=== PATIENT | male | born 1935 | race Caucasian/White ===

== ENCOUNTER → 2017-10-29 11:31 | Outpatient (CLI) | payer MEDICARE, OTHER, SELFPAY ==
[2017-10-29 14:12] LABS: Hematocrit 41.8 % (40-54); Mean Corp Hgb Conc 33.5 g/gl (32-36); Mean Corpuscular Hgb 29.4 pg (27.0-32.0); Mean Corpuscular Volume 87.8 fL (80-94); Mean Platelet Vol. 9.7 fl (6.2-12.0); Platelet Count 278 K/mm3 (150-450); RBC Distribution Width CV 14.9 % (11.6-14.6); RBC Distribution Width SD 47.6 fl (35.1-43.9); Red Blood Count 4.76 M/mm3 (4.6-6.2)
[2017-10-29 14:16] LABS: Scan Indicated on CBC? Y/N NO
[2017-10-29 14:48] LABS: AST(SGOT) 20 U/L (15-37); Alanine Aminotransfer ALT/SGPT 22 U/L (16-61); Albumin, Serum 3.7 g/dL (3.2-5.0); Alkaline Phosphatase 54 U/L (45-117); Anion Gap 9 (5-15); BUN 25 mg/dL (7-18); BUN/Creat Ratio 16.1 RATIO (10-20); Calcium,Total 9.2 mg/dL (8.5-10.1); Chloride 102 mmol/L (98-107); Cholesterol 158 mg/dL (200); Creatinine, Serum 1.55 mg/dL (0.70-1.30); EST Glomerular Filtration Rate 46 mL/min (>60); Est Glom Filt Rate - Afr Amer 55 mL/min (>60); Globulin 3.6 g/dL (2.2-4.2); Glucose 100 mg/dL (74-106); High Density Lipoprotein 52 mg/dL; Potassium 4.6 mmol/L (3.5-5.1); Protein, Total 7.3 g/dL (6.4-8.2); Sodium Level 136 mmol/L (136-145); Triglycerides 163 mg/dL; Very Low Density Lipoprotein 33 mg/dL (5-40)
[2017-10-30 10:28] LABS: Vitamin B12 1640 pg/mL (211-911)
== END ==
PROVIDERS: Family Provider Family Medicine; PCP Family Medicine; Visit Provider Family Medicine
DX: I10 Essential (primary) hypertension (principal); E53.8 Deficiency of other specified B group vitamins
CPT/HCPCS: 36415; 80053; 80061; 82607; 85027

== ENCOUNTER 2017-11-23 11:17 | Inpatient (IN) | payer MEDICARE, OTHER, SELFPAY ==
[2017-11-23] VITALS (11 sets, daily range): BP systolic 107–139; BP diastolic 61–92; PULSE 79–104; RESP 17–39; TEMP 37.1–37.4; O2SAT 94–99; BMI 28.9; BMI 27.2; BMI 27.3
--- NOTE | 2017-11-23 11:55 | EKG12_ITS ---
Test Reason : Blood Pressure : / mmHG Vent. Rate : 094 BPM Atrial Rate : 094 BPM P-R Int : 136 ms QRS Dur : 098 ms QT Int : 356 ms P-R-T Axes : 055 007 063 degrees QTc Int : 445 ms Normal sinus rhythm Nonspecific ST abnormality Abnormal ECG Confirmed by LYNDON ADAM ([id number]), deputy editor in chief ALEKSANDAR MCKOY ([id number]) on 11/26/2017 2:33:51 PM Referred By: JUAQUIN Confirmed By:LYNDON ADAM
--- NOTE | 2017-11-23 11:55 | RAD_ITS ---
STUDY: X-RAY CHEST REASON FOR EXAM: Male, 82 years old. Cough shortness of breath and chest congestion. TECHNIQUE: AP and lateral views of the chest. COMPARISON: Comparison is made with prior study dated April 03, 2016. FINDINGS: EKG electrodes are seen. Elevation of the right hemidiaphragm. Mild increased linear markings at the right lung base suggestive of right basilar atelectasis. There is no demonstrated pleural abnormality. Sternal cerclage wires and vascular clips are present from a prior sternotomy and coronary artery bypass graft procedure (CABG). Normal mediastinum and hernesto. Normal visualized pulmonary arteries. There is atherosclerotic calcification of the aortic arch with tortuosity. There are diffuse degenerative changes of the visualized thoracic spine. Normal visualized ribs, clavicles, and shoulders. There is no demonstrated abnormality of the visualized soft tissue structures of the upper abdomen. RAD/Chest PA and Lateral IMPRESSION: Elevation of the right hemidiaphragm with increased linear markings at the right lung base suggestive of possible atelectasis. Electronically Signed: Elder Persaud MD at 13:01 EDT Tel [phone], Service support ,
[2017-11-23 12:07] LABS: Absolute Lymphocyte Count 0.73 X10^3/ul (0.83-4.51); Absolute Neutrophil Count 10.2 X10^3/uL (2.0-7.7); Basophil# 0.01 X10^3/uL; Basophil% 0.1 % (0-1); Eosinophil# 0.01 X10^3/uL; Eosinophils% 0.1 % (0-5); Hematocrit 40.1 % (40-54); Hemoglobin 13.4 g/dl (13.0-16.5); Lymphocyte # 0.73 X10^3/ul (4.0); Lymphocyte % 6.3 % (19-41); Mean Corp Hgb Conc 33.4 g/gl (32-36); Mean Corpuscular Hgb 29.5 pg (27.0-32.0); Mean Corpuscular Volume 88.3 fL (80-94); Mean Platelet Vol. 9.4 fl (6.2-12.0); Monocyte# 0.63 X10^3/uL; Monocyte% 5.4 % (0-10); Neutrophil # 10.24 X10^3/uL (2.7-7.7); Neutrophil % 87.8 % (47-70); Platelet Count 232 K/mm3 (150-450); RBC Distribution Width CV 15.1 % (11.6-14.6); RBC Distribution Width SD 49.3 fl (35.1-43.9); Red Blood Count 4.54 M/mm3 (4.6-6.2); White Blood Count 11.7 K/mm3 (4.4-11.0)
[2017-11-23 12:08] LABS: POSITIVE COUNT NO; POSITIVE DIFFERENTIAL NO; POSITIVE MORPHOLOGY NO
[2017-11-23 12:17] LABS: Anion Gap 9 (5-15); BUN 27 mg/dL (7-18); BUN/Creat Ratio 15.4 RATIO (10-20); Calcium,Total 9.1 mg/dL (8.5-10.1); Chloride 102 mmol/L (98-107); Creatinine, Serum 1.75 mg/dL (0.70-1.30); EST Glomerular Filtration Rate 40 mL/min (>60); Est Glom Filt Rate - Afr Amer 48 mL/min (>60); Estimated Creatinine Clearance 28.31 ml/min; Glucose 111 mg/dL (74-106); Potassium 4.2 mmol/L (3.5-5.1); Sodium Level 138 mmol/L (136-145)
[2017-11-23 12:29] LABS: Lactic Acid 2.8 mmol/L (0.4-2.0)
--- NOTE | 2017-11-23 12:29 | ED.RN ---
notified Dr. Hardin of lactic 2.8
--- NOTE | 2017-11-23 13:28 | ED.DCSUM_ITS ---
- ER Visit Summary Date of Service: 11/23/17 Chief Complaint: Cough History of Present Illness: The patient is a [address] Reynolds. Patient has a history of dementia and is a poor informant. reports he has a cough began 2 days ago. He has had a fever to 101.3?. He has had shortness of breath and generalized weakness. She reports that she was unable to even get him to stand today. No vomiting or diarrhea. Physical Examination: Vitals: Stable. Afebrile. General: Well-nourished and well-developed. Head: Normocephalic atraumatic. Neck: Supple, no lymphadenopathy. No JVD. Nontender. Cardiovascular: Regular rate and rhythm. No murmurs. Respiratory: No respiratory distress. Rhonchi on the right. Abdominal: Soft, nontender, nondistended, normal bowel sounds. No guarding, rebound, or peritoneal signs. Back: Nontender. Extremities: Nontender, 2+ pitting edema of his lower extremities bilaterally. Skin: Normal color, no rash. Neurologic: Alert and oriented ?1. Cranial nerves II through XII are intact. Normal strength and sensation. Psych: Normal affect. Test Results: EKG is sinus at [address] changes. Influenza is negative. Chem-7 is more for BUN 27, creatinine 1.75, glucose 111. Lactic acid is 2.8. CBC is marked for white count 11.7, 7 neutrophils 88, monocytes of 6. Chest x-ray is a very poor inspiration with an elevated right hemidiaphragm and atelectasis. Emergency Department Course and Treatment: Patient was given a liter bolus of normal saline. He is resting comfortably. Treatment Plan: The patient was discussed with Dr. Mai. He will be admitted to the hospital for further evaluation and treatment. Disposition: Admitted in serious condition. Impression: 1. Severe sepsis. 2. URI. 3. Lactic acidosis. 4. Generalized weakness. This note was generated with [employer] Voice[employer] software. It may contain incorrect words, spelling, and punctuation that were not noted in review of the chart prior to signing ED Disposition - Plan for ED Patient: Chief Complaint: Shortness of Breath Referrals: Randy Buchanan MD [Primary Care Provider] -
[2017-11-23] MEDS: 0.9% Normal Saline 1,000 ML 999 ML IV (13:50)
--- NOTE | 2017-11-23 13:59 | PCM.HP.STD ---
Problem List (1) Severe sepsis Status: Acute (2) DEWAYNE (acute kidney injury) Status: Acute (3) CKD (chronic kidney disease), stage III Status: Chronic (4) Dementia Status: Chronic Qualifiers: Dementia type: Alzheimer's disease Alzheimer's disease onset: unspecified onset (5) Hypertension Status: Chronic (6) GERD (gastroesophageal reflux disease) Status: Chronic Qualifiers: Esophagitis presence: esophagitis presence not specified Qualified Code(s): K21.9 - Gastro-esophageal reflux disease without esophagitis (7) CAD (coronary artery disease) Status: Chronic Qualifiers: Coronary Disease-Associated Artery/Lesion type: bypass graft [place] vs. transplanted heart: [place] heart Associated angina: without angina Qualified Code(s): I25.810 - Atherosclerosis of coronary artery bypass graft(s) without angina pectoris History of Present Illness Date of Admission: 11/23/17 Chief Complaint: weakness The patient is a 82 year old M who has been coughing since Thursday. Patient's daughter lives with him and has been sick herself since the preceding . She states that she has been checking his temperature which he has been afebrile over the weekend. Patient got up today and then try to get up from breakfast patient was just very weak. She felt the patient was burning up and had a temperature of greater than 101 Fahrenheit. Given that he was weak she decided to call EMS and brought the patient to the hospital. In the emergency room, patient had a chest x-ray showed no acute infiltrates. And the patient did have a lactic acid of 2.8. Patient is to receive IV fluids. Patient also be receiving a urinalysis and urine culture. Patient did have 2 blood cultures performed. Patient is demented and a poor historian so he is unable to provide any history. Patient's daughter states that he was coughing that was nonproductive over the weekend but no other obvious source of infection that she can determine. States that she was put on antibiotics for a presumed sinus infection from her illness from last week. [] Past Medical History Past Medical History (Chronic Problems): Chronic Problems CKD (chronic kidney disease), stage III (Chronic) Dementia (Chronic) Hypertension (Chronic) GERD (gastroesophageal reflux disease) (Chronic) CAD (coronary artery disease) (Chronic) Allergies No Known Allergies Allergy (Verified 04/03/16 14:19) Home Medications: Ambulatory Orders Medication Instructions Recorded Aspirin [Aspirin, Baby] 81 mg PO DAILY@0800 04/03/16 Citalopram [Celexa] 20 mg PO DAILY 04/03/16 Donepezil HCl [Aricept] 10 mg PO QHS 04/03/16 Ergocalciferol [Vitamin D] 50,000 unit PO GARIBAY 04/03/16 Hydrocodone/Acetaminophen 1 each PO QHS 04/03/16 [Hydrocodone-Acetamin 5-325 mg] Lorazepam [Ativan] 0.5 mg PO DAILY PRN PRN 04/03/16 Meloxicam [Mobic] 15 mg PO DAILY 04/03/16 Metoprolol Tartrate [Lopressor 25 mg PO DAILY 04/03/16 (beta ximena)] Omeprazole [Prilosec] 20 mg PO DAILY 04/03/16 Quetiapine Fumarate [Seroquel XR] 50 mg PO QHS 04/03/16 Simvastatin [Zocor] 40 mg PO QHS 04/03/16 Ensure Enlive 120 ml PO 4X/DAY #1 box 04/04/16 Surgical History: coronary bypass surgery - ?1, total hip arthroplasty - Bilateral Lives: With Family Smoking Status: Never smoker - *Family History Maternal History Items: - - Unable to obtain as patient is demented Review of Systems Constitutional: Reports: Fever, Weakness Respiratory: Reports: Cough Unable to obtain accurate/complete ROS d/t: Unable to obtain as the patient is confused VTE Information - Inpt Only VTE Present on Admission: No VTE Pharm Prophylaxis ordered?: Yes Patient Problems: Active and Suspected Problems Severe sepsis (Acute) DEWAYNE (acute kidney injury) (Acute) - Physical Exam General: Alert, Cooperative, No apparent distress HEENT: Atraumatic, Normocephalic Oral: Moist Mucosa, No Gingival or Mucosal Lesions/ Ulcerations, - - edentulous Neck: No Nodes, Thyroid Normal Size and Texture Lungs: Clear to auscultation, No rhonchi, No wheeze, Diminished Cardiovascular: Regular rate, Regular Rhythm, Normal S1, Normal S2, No murmurs Abdomen: Bowel Sounds Present, Soft, Non Tender, Non-Distended, No Hepato-splenomegaly Extremities: No edema, No Calf Tenderness Skin: No rashes, No breakdown Musculoskeletal: No Tenderness to Palpation of Joints or Extremities, No Muscle Wasting Neurological: Neuro grossly intact, - - no clonus Psych/Mental Status: - - confused Vital Signs Temp Pulse Resp BP Pulse Ox 37.4 C H 102 H 28 H 121/75 H 94 11/23/17 12:57 11/23/17 13:50 11/23/17 13:50 11/23/17 13:50 11/23/17 13:50 Oxygen Flow Rate (L/min) 5 Oxygen Delivery Method Nasal Cannula Weight: 78.925 kg Body Mass Index (BMI) 28.9 Microbiology Past 72 Hours 11/23/17 12:45 Influenza Types A,B Direct FA (GEETA) - Final Mucosa - Nose Laboratory Tests Past 24 Hrs 11/23/17 11/23/17 11/23/17 11:28 11:28 11:28 WBC 11.7 H RBC 4.54 L Hgb 13.4 Hct 40.1 MCV 88.3 MCH 29.5 MCHC 33.4 RDW 15.1 H RDW Differential 49.3 H Plt Count 232 MPV 9.4 Immature Gran % (Auto) 0.300 Neut % (Auto) 87.8 H Lymph % (Auto) 6.3 L [place] % (Auto) 5.4 Eos % (Auto) 0.1 Baso % (Auto) 0.1 Absolute Neuts (auto) 10.2 H Absolute Lymphs (auto) 0.73 L Total Counted Not Reportable Sodium 138 Potassium 4.2 Chloride 102 Carbon Dioxide 27.0 Anion Gap 9 BUN 27 H Creatinine 1.75 H Estim Creat Clear Calc 28.31 Est GFR (MDRD) Af Amer 48 L Est GFR (MDRD) Non-Af 40 L BUN/Creatinine Ratio 15.4 Glucose 111 H Lactic Acid 2.8 H Calcium 9.1 EKG reviewed and showed normal sinus rhythm with an incomplete right bundle branch block. No previous EKG was available to be compared to. X-ray personally reviewed and showed points to her efforts but no obvious infiltrate nor edema. Assessment/Plan Active and Suspected Problems Severe sepsis (Acute) DEWAYNE (acute kidney injury) (Acute) 1. Severe sepsis Patient meeting criteria based on respiratory rates as well as tachycardia. Additionally patient had a lactic acid of 2.8 I advised the emergency room physician to get the patient IV fluids even though there is no clear obvious source of infection at this time. Patient will have a urine studies as well to evaluate for the being potential etiology. My concern is that this may be more of a viral etiology. Patient's rapid flu is negative. Respiratory viral panel is currently pending. Hold off on any antibiotics at this time unless clear source of infection has been delayed or if the patient's condition changes for the worse. 2. Presumed acute kidney injury Creatinine is 1.75 from his baseline of 1.4. IV fluids Hold potentiating medications such as meloxicam. 3. Dementia, Alzheimer type Complicating care Continue with his Aricept as well as Seroquel 4. DVT prophylaxis with low migrate heparin Advanced care planning, spent an additional 15 minutes outside of the history and physical discussing advanced care planning with the patient's daughter, who is the patient's power of associate attorney. Discussed CPR, intubation and PEG tube and tube feeds. She states, at this time, patient is DNR Comfort Care arrest, no intubation and no PEG tubes. Code Visit Inpatient E&M: 10690 Init Hosp L3 Procedures: 09010 Advncd Care Plan 30 Min
--- NOTE | 2017-11-23 14:11 | HP.PCM_ITS ---
Problem List (1) Severe sepsis Status: Acute (2) DEWAYNE (acute kidney injury) Status: Acute (3) CKD (chronic kidney disease), stage III Status: Chronic (4) Dementia Status: Chronic Qualifiers: Dementia type: Alzheimer's disease Alzheimer's disease onset: unspecified onset (5) Hypertension Status: Chronic (6) GERD (gastroesophageal reflux disease) Status: Chronic Qualifiers: Esophagitis presence: esophagitis presence not specified Qualified Code(s) : K21.9 - Gastro-esophageal reflux disease without esophagitis (7) CAD (coronary artery disease) Status: Chronic Qualifiers: Coronary Disease-Associated Artery/Lesion type: bypass graft [place] vs. transplanted heart: [place] heart Associated angina: without angina Qualified Code(s): I25.810 - Atherosclerosis of coronary artery bypass graft(s) without angina pectoris History of Present Illness Date of Admission: 11/23/17 Chief Complaint: weakness The patient is a 82 year old M who has been coughing since Thursday. Patient's daughter lives with him and has been sick herself since the preceding . She states that she has been checking his temperature which he has been afebrile over the weekend. Patient got up today and then try to get up from breakfast patient was just very weak. She felt the patient was burning up and had a temperature of greater than 101 Fahrenheit. Given that he was weak she decided to call EMS and brought the patient to the hospital. In the emergency room, patient had a chest x-ray showed no acute infiltrates. And the patient did have a lactic acid of 2.8. Patient is to receive IV fluids. Patient also be receiving a urinalysis and urine culture. Patient did have 2 blood cultures performed. Patient is demented and a poor historian so he is unable to provide any history. Patient's daughter states that he was coughing that was nonproductive over the weekend but no other obvious source of infection that she can determine. States that she was put on antibiotics for a presumed sinus infection from her illness from last week. [] Past Medical History Past Medical History (Chronic Problems): Chronic Problems CKD (chronic kidney disease), stage III (Chronic) Dementia (Chronic) Hypertension (Chronic) GERD (gastroesophageal reflux disease) (Chronic) CAD (coronary artery disease) (Chronic) Allergies No Known Allergies Allergy (Verified 04/03/16 14:19) Home Medications: Ambulatory Orders Medication Instructions Recorded Aspirin [Aspirin, Baby] 81 mg PO DAILY@0800 04/03/16 Citalopram [Celexa] 20 mg PO DAILY 04/03/16 Donepezil HCl [Aricept] 10 mg PO QHS 04/03/16 Ergocalciferol [Vitamin D] 50,000 unit PO GARIBAY 04/03/16 Hydrocodone/Acetaminophen 1 each PO QHS 04/03/16 [Hydrocodone-Acetamin 5-325 mg] Lorazepam [Ativan] 0.5 mg PO DAILY PRN PRN 04/03/16 Meloxicam [Mobic] 15 mg PO DAILY 04/03/16 Metoprolol Tartrate [Lopressor 25 mg PO DAILY 04/03/16 (beta ximena)] Omeprazole [Prilosec] 20 mg PO DAILY 04/03/16 Quetiapine Fumarate [Seroquel XR] 50 mg PO QHS 04/03/16 Simvastatin [Zocor] 40 mg PO QHS 04/03/16 Ensure Enlive 120 ml PO 4X/DAY #1 box 04/04/16 Surgical History: coronary bypass surgery - ?1, total hip arthroplasty - Bilateral Lives: With Family Smoking Status: Never smoker - *Family History Maternal History Items: - - Unable to obtain as patient is demented Review of Systems Constitutional: Reports: Fever, Weakness Respiratory: Reports: Cough Unable to obtain accurate/complete ROS d/t: Unable to obtain as the patient is confused VTE Information - Inpt Only VTE Present on Admission: No VTE Pharm Prophylaxis ordered?: Yes Patient Problems: Active and Suspected Problems Severe sepsis (Acute) DEWAYNE (acute kidney injury) (Acute) - Physical Exam General: Alert, Cooperative, No apparent distress HEENT: Atraumatic, Normocephalic Oral: Moist Mucosa, No Gingival or Mucosal Lesions/ Ulcerations, - - edentulous Neck: No Nodes, Thyroid Normal Size and Texture Lungs: Clear to auscultation, No rhonchi, No wheeze, Diminished Cardiovascular: Regular rate, Regular Rhythm, Normal S1, Normal S2, No murmurs Abdomen: Bowel Sounds Present, Soft, Non Tender, Non-Distended, No Hepato- splenomegaly Extremities: No edema, No Calf Tenderness Skin: No rashes, No breakdown Musculoskeletal: No Tenderness to Palpation of Joints or Extremities, No Muscle Wasting Neurological: Neuro grossly intact, - - no clonus Psych/Mental Status: - - confused Vital Signs Temp Pulse Resp BP Pulse Ox 37.4 C H 102 H 28 H 121/75 H 94 11/23/17 12:57 11/23/17 13:50 11/23/17 13:50 11/23/17 13:50 11/23/17 13:50 Oxygen Flow Rate (L/min) 5 Oxygen Delivery Method Nasal Cannula Weight: 78.925 kg Body Mass Index (BMI) 28.9 Microbiology Past 72 Hours 11/23/17 12:45 Influenza Types A,B Direct FA (GEETA) - Final Mucosa - Nose Laboratory Tests Past 24 Hrs 11/23/17 11/23/17 11/23/17 11:28 11:28 11:28 WBC 11.7 H RBC 4.54 L Hgb 13.4 Hct 40.1 MCV 88.3 MCH 29.5 MCHC 33.4 RDW 15.1 H RDW Differential 49.3 H Plt Count 232 MPV 9.4 Immature Gran % (Auto) 0.300 Neut % (Auto) 87.8 H Lymph % (Auto) 6.3 L [place] % (Auto) 5.4 Eos % (Auto) 0.1 Baso % (Auto) 0.1 Absolute Neuts (auto) 10.2 H Absolute Lymphs (auto) 0.73 L Total Counted Not Reportable Sodium 138 Potassium 4.2 Chloride 102 Carbon Dioxide 27.0 Anion Gap 9 BUN 27 H Creatinine 1.75 H Estim Creat Clear Calc 28.31 Est GFR (MDRD) Af Amer 48 L Est GFR (MDRD) Non-Af 40 L BUN/Creatinine Ratio 15.4 Glucose 111 H Lactic Acid 2.8 H Calcium 9.1 EKG reviewed and showed normal sinus rhythm with an incomplete right bundle branch block. No previous EKG was available to be compared to. X-ray personally reviewed and showed points to her efforts but no obvious infiltrate nor edema. Assessment/Plan Active and Suspected Problems Severe sepsis (Acute) DEWAYNE (acute kidney injury) (Acute) 1. Severe sepsis * Patient meeting criteria based on respiratory rates as well as tachycardia. Additionally patient had a lactic acid of 2.8 * I advised the emergency room physician to get the patient IV fluids even though there is no clear obvious source of infection at this time. Patient will have a urine studies as well to evaluate for the being potential etiology. My concern is that this may be more of a viral etiology. Patient's rapid flu is negative. Respiratory viral panel is currently pending. * Hold off on any antibiotics at this time unless clear source of infection has been delayed or if the patient's condition changes for the worse. 2. Presumed acute kidney injury * Creatinine is 1.75 from his baseline of 1.4. * IV fluids * Hold potentiating medications such as meloxicam. 3. Dementia, Alzheimer type * Complicating care * Continue with his Aricept as well as Seroquel 4. DVT prophylaxis with low migrate heparin Advanced care planning, spent an additional 15 minutes outside of the history and physical discussing advanced care planning with the patient's daughter, who is the patient's power of sports attorney. Discussed CPR, intubation and PEG tube and tube feeds. She states, at this time, patient is DNR Comfort Care arrest, no intubation and no PEG tubes. Code Visit Inpatient E&M: 34581 Init Hosp L3 Procedures: 95505 Advncd Care Plan 30 Min
[2017-11-23] MEDS: 0.9% Normal Saline 1,000 ML 150 ML IV (15:00)
[2017-11-23 16:02] LABS: Reflex Lactate? Y
[2017-11-23 17:26] LABS: Lactic Acid 1.1 mmol/L (0.4-2.0)
[2017-11-23] MEDS: QUEtiapine 25 MG Tablet PO (22:36)
[2017-11-23] MEDS: Donepezil HCl 10 MG Tablet PO (22:36)
[2017-11-23] MEDS: Atorvastatin Calcium 20 MG Tablet PO (22:36)
[2017-11-23] MEDS: HYDROcodone Bitartrate/Apap 5/325 Tablet PO (22:36)
[2017-11-24] VITALS (9 sets, daily range): BP systolic 118–157; BP diastolic 63–87; PULSE 63–88; RESP 18–20; TEMP 36.3–36.9; O2SAT 92–100
[2017-11-24 06:01] LABS: Absolute Lymphocyte Count 1.52 X10^3/ul (0.83-4.51); Absolute Neutrophil Count 9.7 X10^3/uL (2.0-7.7); Basophil# 0.01 X10^3/uL; Basophil% 0.1 % (0-1); Eosinophil# 0.01 X10^3/uL; Eosinophils% 0.1 % (0-5); Hematocrit 33.9 % (40-54); Hemoglobin 11.1 g/dl (13.0-16.5); Lymphocyte # 1.52 X10^3/ul (4.0); Lymphocyte % 12.2 % (19-41); Mean Corp Hgb Conc 32.7 g/gl (32-36); Mean Corpuscular Hgb 29.3 pg (27.0-32.0); Mean Corpuscular Volume 89.4 fL (80-94); Mean Platelet Vol. 9.4 fl (6.2-12.0); Monocyte# 1.23 X10^3/uL; Monocyte% 9.9 % (0-10); Neutrophil # 9.68 X10^3/uL (2.7-7.7); Neutrophil % 77.5 % (47-70); Platelet Count 184 K/mm3 (150-450); RBC Distribution Width CV 15.3 % (11.6-14.6); RBC Distribution Width SD 49.2 fl (35.1-43.9); Red Blood Count 3.79 M/mm3 (4.6-6.2); White Blood Count 12.5 K/mm3 (4.4-11.0)
[2017-11-24 06:05] LABS: POSITIVE COUNT NO; POSITIVE DIFFERENTIAL NO; POSITIVE MORPHOLOGY NO
[2017-11-24 06:19] LABS: Anion Gap 7 (5-15); BUN 30 mg/dL (7-18); BUN/Creat Ratio 23.1 RATIO (10-20); Calcium,Total 8.4 mg/dL (8.5-10.1); Chloride 109 mmol/L (98-107); EST Glomerular Filtration Rate 56 mL/min (>60); Est Glom Filt Rate - Afr Amer 68 mL/min (>60); Estimated Creatinine Clearance 39.53 ml/min; Glucose 88 mg/dL (74-106); Potassium 3.8 mmol/L (3.5-5.1); Sodium Level 143 mmol/L (136-145)
[2017-11-24] MEDS: Enoxaparin 30 MG/0.3 ML Syringe SC (08:21)
[2017-11-24] MEDS: QUEtiapine 25 MG Tablet PO (08:21)
[2017-11-24] MEDS: Pantoprazole Sodium 20 MG Tablet PO (08:21)
[2017-11-24] MEDS: Aspirin 81 MG TAB.CHEW PO (08:21)
[2017-11-24] MEDS: Metoprolol Tartrate 25 MG Tablet PO (08:21)
--- NOTE | 2017-11-24 09:34 | CASEMGMT ---
Social Work Note Face to face with the pt and his daughter, Kenzie (HCPOA). Introduced self and role at [facility]. Per Kenzie the pt and she moved into a one level condo without a basement. The pt uses a rollator at baseline and other DME consists of shower chair, handheld shower and grab bars. According to Kenzie the pt is able to get himself out of bed, dress himself and feed himself. His aides assist him with bathing. Kenzie states that she works from 2-10 everyday as a nurse at [employer]. The pt had aides come in through [facility] on M,W, and they privately pay for aide to come in on and . Aide services are provided through the [place], but Kenzie states that [facility] does not have the staffing to service them 5 days/week. Pt's has been in [facility] since 2014 and they would like to keep the pt at home as long as possible. At this time Kenzie anticipates taking the pt home and denies additional needs. Pt made aware that SW is available if additional needs arise. Placed call to GASPER Brown, and updated that pt was admitted. Confirmed that the pt is approved for 10 hrs/week of aide services through [facility]. Updated Kevin to anticipated discharge plan, and no additional needs at this time. SW to continue to follow and assist with discharge planning. Plan: Home with continued support from aides and family. [address], [employer] REPA[employer]ER, [employer]
--- NOTE | 2017-11-24 09:40 | PN_ITS ---
Patient Problems: Active and Suspected Problems Severe sepsis (Acute) DEWAYNE (acute kidney injury) (Acute) Subjective: Chief complaint: Follow-up after admission for severe sepsis secondary to influenza B/acute bronchitis as well as acute kidney injury. Patient seen and examined. No acute events overnight. He is poor informant because of dementia. He mentioned that his breathing is better not sure if he has been coughing or not. Denied chest pain or palpitations. He has been afebrile, blood pressure not able stable, pulse ox is 98% on 2 L. - Physical Exam General: Alert, Cooperative, No apparent distress HEENT: Atraumatic, PERRLA, EOMI Oral: Moist Mucosa, No Gingival or Mucosal Lesions/ Ulcerations Neck: Supple, No JVD, Negative Carotid Bruits, Trachea Midline, Thyroid Normal Size and Texture Lungs: Clear to auscultation, No rhonchi, No rales, Diminished, - - Scattered wheezing, minimal shortness of breath. Cardiovascular: Regular rate, Regular Rhythm, Normal S1, Normal S2, PMI Normal Abdomen: Bowel Sounds Present, Soft, Non Tender, Non-Distended, No Hepato- splenomegaly Extremities: No clubbing, No cyanosis, No edema Skin: No rashes, No breakdown Lymphatic: No Cervical, Supraclavicular, or Inguinal Adenopathy Neurological: Cranial nerves II-XII grossly intact, Neuro grossly intact Psych/Mental Status: Normal Affect, Appropriate Vital Signs Temp Pulse Resp BP Pulse Ox 97.7 F L 77 18 118/63 98 11/24/17 04:50 11/24/17 08:21 11/24/17 04:50 11/24/17 04:50 11/24/17 04:50 Oxygen Flow Rate (L/min) 1 Oxygen Delivery Method Nasal Cannula Weight: 168 lb 13.985 oz Body Mass Index (BMI) 27.2 Intake and Output for Last 24 Hours 11/22/17 11/23/17 11/24/17 23:59 23:59 23:59 Intake Total 1241 / 1241 Balance 1241 / 1241 Laboratory Tests Past 24 Hrs 11/23/17 11/23/17 11/24/17 15:40 16:45 05:35 WBC 12.5 H RBC 3.79 L Hgb 11.1 L Hct 33.9 L MCV 89.4 MCH 29.3 MCHC 32.7 RDW 15.3 H RDW Differential 49.2 H Plt Count 184 MPV 9.4 Immature Gran % (Auto) 0.200 Neut % (Auto) 77.5 H Lymph % (Auto) 12.2 L [place] % (Auto) 9.9 Eos % (Auto) 0.1 Baso % (Auto) 0.1 Absolute Neuts (auto) 9.7 H Absolute Lymphs (auto) 1.52 Total Counted Not Reportable Sodium Potassium Chloride Carbon Dioxide Anion Gap BUN Creatinine Estim Creat Clear Calc Est GFR (MDRD) Af Amer Est GFR (MDRD) Non-Af BUN/Creatinine Ratio Glucose Lactic Acid Cancelled 1.1 Calcium 11/24/17 05:35 WBC RBC Hgb Hct MCV MCH MCHC RDW RDW Differential Plt Count MPV Immature Gran % (Auto) Neut % (Auto) Lymph % (Auto) [place] % (Auto) Eos % (Auto) Baso % (Auto) Absolute Neuts (auto) Absolute Lymphs (auto) Total Counted Sodium 143 Potassium 3.8 Chloride 109 H Carbon Dioxide 27.0 Anion Gap 7 BUN 30 H Creatinine 1.30 Estim Creat Clear Calc 39.53 Est GFR (MDRD) Af Amer 68 Est GFR (MDRD) Non-Af 56 L BUN/Creatinine Ratio 23.1 H Glucose 88 Lactic Acid Calcium 8.4 L Clinical Impression(s) from Imaging Studies Chest X-Ray 11/23/17 11:55 IMPRESSION: Elevation of the right hemidiaphragm with increased linear markings at the right lung base suggestive of possible atelectasis. Electronically Signed: Elder Persaud MD at 13:01 EDT Tel [phone], Service support , Medical Necessity - Tobacco Use Smoking Status: Never smoker Assessment/Plan Active and Suspected Problems Severe sepsis (Acute) DEWAYNE (acute kidney injury) (Acute) This is an 82 years old male patient presented to the emergency room because of dry cough and fever as well as mild shortness of breath and weakness and he was found to have severe sepsis secondary to acute viral bronchitis secondary to acute influenza B as well as acute kidney injury. #1 acute viral bronchitis/influenza B: He is on Tamiflu. He has been afebrile overnight, blood pressure and heart rate are stable, pulse ox is 98% on 2 L. Chest x-ray showed no acute infiltrate. Blood and urine cultures are pending. Plan to continue same treatment, repeat CBC tomorrow morning. #2 severe sepsis: Based on tachycardia, tachypnea and lactic acid 2.8. With IV fluid therapy, lactic acid came back to normal. It is probably secondary to acute viral infection. No indication for IV antibiotics. Chest x-ray showed no acute infiltrate. Blood and urine cultures are pending. #3 acute kidney injury on top of stage III chronic kidney disease: His baseline creatinine recently was around 1.4. Before that, it has been normal. Admission creatinine is 1.75. Patient received IV fluids, creatinine came down to 1.30, improved. #4 hypertension: Blood pressure stable, continue metoprolol. #5 CAD: Stable, no acute issues. Continue aspirin, statins and metoprolol. #6 dementia: With behavioral disturbances. Continue Seroquel and as needed Ativan. #7 GERD: Continue Protonix. #8 DVT prophylaxis: Subcu Lovenox. This note was generated with [employer] dictation software. It may contain incorrect words, spelling, and punctuation that were not noted in checking the note before signing. Code Visit Inpatient E&M: 03485 Subs Hosp L2
[2017-11-24] MEDS: Oseltamivir Phosphate 30 MG Capsule PO ×2 (10:44→21:29)
[2017-11-24] MEDS: DULoxetine Hcl 60 MG Capsule PO (11:40)
[2017-11-24] MEDS: Albuterol 2.5 MG/3 ML VIAL.NEB. INHALATION ×2 (13:41→19:39)
[2017-11-24] MEDS: Atorvastatin Calcium 20 MG Tablet PO (21:28)
[2017-11-24] MEDS: QUEtiapine 100 MG Tablet PO (21:28)
[2017-11-24] MEDS: HYDROcodone Bitartrate/Apap 5/325 Tablet PO (21:28)
[2017-11-24] MEDS: Donepezil HCl 10 MG Tablet PO (21:28)
[2017-11-25] VITALS (10 sets, daily range): BP systolic 110–159; BP diastolic 72–82; PULSE 68–86; RESP 16–20; TEMP 36.4–37.6; O2SAT 90–94
[2017-11-25] MEDS: Albuterol 2.5 MG/3 ML VIAL.NEB. INHALATION ×2 (01:18→07:27)
[2017-11-25 05:30] LABS: Absolute Lymphocyte Count 1.29 X10^3/ul (0.83-4.51); Basophil# 0.01 X10^3/uL; Basophil% 0.1 % (0-1); Eosinophil# 0.05 X10^3/uL; Eosinophils% 0.6 % (0-5); Hematocrit 33.4 % (40-54); Hemoglobin 11.2 g/dl (13.0-16.5); Lymphocyte # 1.29 X10^3/ul (4.0); Lymphocyte % 14.4 % (19-41); Mean Corp Hgb Conc 33.5 g/gl (32-36); Mean Corpuscular Hgb 29.4 pg (27.0-32.0); Mean Corpuscular Volume 87.7 fL (80-94); Mean Platelet Vol. 9.4 fl (6.2-12.0); Monocyte# 0.61 X10^3/uL; Monocyte% 6.8 % (0-10); Neutrophil # 6.96 X10^3/uL (2.7-7.7); Neutrophil % 77.8 % (47-70); Platelet Count 182 K/mm3 (150-450); RBC Distribution Width CV 14.8 % (11.6-14.6); RBC Distribution Width SD 46.5 fl (35.1-43.9); Red Blood Count 3.81 M/mm3 (4.6-6.2)
[2017-11-25 05:47] LABS: POSITIVE COUNT NO; POSITIVE DIFFERENTIAL NO; POSITIVE MORPHOLOGY NO
--- NOTE | 2017-11-25 08:55 | PCM.PROGNOTE ---
Patient Problems: Active and Suspected Problems Severe sepsis (Acute) DEWAYNE (acute kidney injury) (Acute) Subjective: Chief complaint: Follow-up after admission for severe sepsis secondary to influenza B/acute bronchitis as well as acute kidney injury. Patient seen and examined. No acute events overnight. He has no specific complaints, shortness of breath improved. Daughter mentioned that he is still congested and having some wheezing. He is afebrile, blood pressure stable, pulse ox is 92% on room air. - Physical Exam General: Alert, Cooperative, No apparent distress, - HEENT: Atraumatic, PERRLA, EOMI Oral: Moist Mucosa, No Gingival or Mucosal Lesions/ Ulcerations Neck: Supple, No JVD, Negative Carotid Bruits, Trachea Midline, Thyroid Normal Size and Texture Lungs: No rhonchi, No rales, Diminished, - - Bilateral expiratory wheezes. Cardiovascular: Regular rate, Regular Rhythm, Normal S1, Normal S2 Abdomen: Bowel Sounds Present, Soft, Non Tender, Non-Distended, No Hepato-splenomegaly Extremities: No clubbing, No cyanosis, No edema Skin: No rashes, No breakdown Lymphatic: No Cervical, Supraclavicular, or Inguinal Adenopathy Neurological: Cranial nerves II-XII grossly intact, Neuro grossly intact Psych/Mental Status: Normal Affect, Appropriate Vital Signs Temp Pulse Resp BP Pulse Ox 97.6 F L 86 18 143/75 H 90 11/25/17 03:45 11/25/17 07:28 11/25/17 07:28 11/25/17 03:45 11/25/17 07:28 Oxygen Flow Rate (L/min) 1 Oxygen Delivery Method Room Air Weight: 168 lb 13.985 oz Body Mass Index (BMI) 27.2 Intake and Output for Last 24 Hours 11/23/17 11/24/17 11/25/17 23:59 23:59 23:59 Intake Total 1241 / 1241 850 / 850 Output Total 50 / 50 Balance 1241 / 1241 800 / 800 Laboratory Tests Past 24 Hrs 11/25/17 05:05 WBC 9.0 RBC 3.81 L Hgb 11.2 L Hct 33.4 L MCV 87.7 MCH 29.4 MCHC 33.5 RDW 14.8 H RDW Differential 46.5 H Plt Count 182 MPV 9.4 Immature Gran % (Auto) 0.300 Neut % (Auto) 77.8 H Lymph % (Auto) 14.4 L [place] % (Auto) 6.8 Eos % (Auto) 0.6 Baso % (Auto) 0.1 Absolute Neuts (auto) 7.0 Absolute Lymphs (auto) 1.29 Total Counted Not Reportable Medical Necessity - Tobacco Use Smoking Status: Never smoker Assessment/Plan Active and Suspected Problems Severe sepsis (Acute) DEWAYNE (acute kidney injury) (Acute) This is an 82 years old male patient presented to the emergency room because of dry cough and fever as well as mild shortness of breath and weakness and he was found to have severe sepsis secondary to acute viral bronchitis secondary to acute influenza B as well as acute kidney injury. #1 acute viral bronchitis/influenza B: He is on Tamiflu. He remained afebrile overnight, blood pressure and heart rate are stable, pulse ox is 92% on room air. Chest x-ray showed no acute infiltrate. White blood cell count is back to normal. Blood and urine cultures are pending. He has been having wheezing. Plan to continue same treatment, start DuoNeb every 4 hours, continue albuterol as needed, anticipate discharge tomorrow. #2 severe sepsis: He has been afebrile, no more tachycardic, blood pressure stable. Lactic acid is back to normal. It is probably secondary to acute viral infection. No indication for IV antibiotics. Chest x-ray showed no acute infiltrate. Blood and urine cultures are pending. #3 acute kidney injury on top of stage III chronic kidney disease: His baseline creatinine recently was around 1.4. Before that, it has been normal. Admission creatinine is 1.75. Patient received IV fluids, creatinine came down to 1.30, improved. #4 hypertension: Blood pressure stable, continue metoprolol. #5 CAD: Stable, no acute issues. Continue aspirin, statins and metoprolol. #6 dementia: With behavioral disturbances. Continue Seroquel and as needed Ativan. #7 GERD: Continue Protonix. #8 DVT prophylaxis: Subcu Lovenox. This note was generated with [employer]ation software. It may contain incorrect words, spelling, and punctuation that were not noted in checking the note before signing. Code Visit Inpatient E&M: 33638 Subs Hosp L2
[2017-11-25] MEDS: DULoxetine Hcl 60 MG Capsule PO (08:57)
[2017-11-25] MEDS: Pantoprazole Sodium 20 MG Tablet PO (08:57)
[2017-11-25] MEDS: QUEtiapine 100 MG Tablet 200 MG PO (08:57)
[2017-11-25] MEDS: Metoprolol Tartrate 25 MG Tablet PO (08:57)
[2017-11-25] MEDS: Aspirin 81 MG TAB.CHEW PO (08:57)
[2017-11-25] MEDS: Enoxaparin 30 MG/0.3 ML Syringe SC (08:58)
[2017-11-25] MEDS: Oseltamivir Phosphate 30 MG Capsule PO ×2 (08:58→21:17)
--- NOTE | 2017-11-25 09:07 | CASEMGMT ---
SW spoke w/physician, he states pt may be ready for discharge tomorrow, and daughter is concerned about pt going home and being alone on Thursday, as she works. SW spoke w/pt's daughter in room. Daughter explains if pt goes home tomorrow there is nobody who can stay w/pt during the day tomorrow, and she works 2-10:30pm tomorrow. She states if pt were released on Thursday it would be better for her as she is off on the weekend. SW explained that physician will discharge pt when medically ready. SW spoke w/daughter about short term group home placement. Daughter states she needs to speak w/pt's sons about it. She states she would be okay with this, but her brothers may not be. She is pt's POA and cares for pt, states she is very worn out. Daughter thinks it could be beneficial for pt, though is not certain how beneficial since pt has Alzheimer's. SW explained it may help him to get some strength back and get through this episode of illness. Daughter indicated that her brothers do not understand how much she is doing for pt. SW offered support, encouraged her to speak w/her brothers about it--she has not spoken with them about this before. SW gave daughter card, asked her to speak w/her brothers and let this SW know if they would like to look at short term placement. Daughter will do so. SW will continue to follow. HAILEE Morel, CNC MANAGER
--- NOTE | 2017-11-25 13:03 | CHAPLAIN ---
Type of Pastoral Visit _x__ Initial Visit ___ Follow-up Visit ___ On-call Visit ___ General Patient Visit ___ Spiritual Assessment ___ Family Conference ___ Bereavement ___ Rapid Response ___ Code Blue ___ Other (describe below) Pastoral Care Referral From _x__ Patient ___ Family ___ Nurse ___ Physician ___ Lube Attendant ___ Child Welfare Counselor ___ Other (describe below) Sacrament/Intervention _x__ Active listening ___ Anointing ___ Episcopalian ___ Bereavement ___ Communion ___ Nereida exploration ___ ___ Life review _x__ Prayer ___ Reconciliation ___ Sacrament of Sick _x__ Supportive presence ___ Wedding ___ Other (describe below) Pastoral Comments
[2017-11-25] MEDS: Ipratropium/Albuterol Sulfate 3 ML AMPUL.NEB INHALATION ×3 (13:22→22:22)
[2017-11-25] MEDS: Donepezil HCl 10 MG Tablet PO (21:17)
[2017-11-25] MEDS: QUEtiapine 100 MG Tablet PO (21:17)
[2017-11-25] MEDS: HYDROcodone Bitartrate/Apap 5/325 Tablet PO (21:17)
[2017-11-25] MEDS: Atorvastatin Calcium 20 MG Tablet PO (21:17)
[2017-11-26] VITALS (16 sets, daily range): BP systolic 76–127; BP diastolic 41–70; PULSE 77–94; RESP 16–18; TEMP 36.4–36.9; O2SAT 90–100
[2017-11-26] MEDS: Ipratropium/Albuterol Sulfate 3 ML AMPUL.NEB INHALATION ×6 (03:10→23:11)
[2017-11-26] MEDS: QUEtiapine 100 MG Tablet 200 MG PO (07:55)
[2017-11-26] MEDS: Aspirin 81 MG TAB.CHEW PO (07:56)
--- NOTE | 2017-11-26 08:27 | PCM.PROGNOTE ---
Patient Problems: Active and Suspected Problems Severe sepsis (Acute) DEWAYNE (acute kidney injury) (Acute) Subjective: Chief complaint: Follow-up after admission for severe sepsis secondary to influenza B/acute bronchitis as well as acute kidney injury. Patient seen and examined. No acute events overnight. He denies any significant complaints. His vital signs are stable, afebrile, pulse ox is 90% on room air. - Physical Exam General: Alert, Cooperative, No apparent distress HEENT: Atraumatic, PERRLA, EOMI Oral: Moist Mucosa, No Gingival or Mucosal Lesions/ Ulcerations Neck: Supple, No JVD, Negative Carotid Bruits, Trachea Midline, Thyroid Normal Size and Texture Lungs: No wheeze, No rales, Diminished, Rhonchi, - - Decreased breath sounds bilateral, bilateral rhonchi. Cardiovascular: Regular rate, Regular Rhythm, Normal S1, Normal S2, PMI Normal Abdomen: Bowel Sounds Present, Soft, Non Tender, Non-Distended, No Hepato-splenomegaly Extremities: No clubbing, No cyanosis, No edema Skin: No rashes, No breakdown Neurological: Cranial nerves II-XII grossly intact, Neuro grossly intact Psych/Mental Status: Normal Affect, Appropriate Vital Signs Temp Pulse Resp BP Pulse Ox 97.5 F L 85 18 127/69 H 90 11/26/17 03:05 11/26/17 06:36 11/26/17 06:36 11/26/17 03:05 11/26/17 06:36 Oxygen Flow Rate (L/min) 1 Oxygen Delivery Method Room Air Weight: 168 lb 13.985 oz Body Mass Index (BMI) 27.2 Intake and Output for Last 24 Hours 11/24/17 11/25/17 11/26/17 23:59 23:59 23:59 Intake Total 850 / 850 780 / 780 100 / 100 Output Total 50 / 50 200 / 200 Balance 800 / 800 780 / 780 -100 / -100 Medical Necessity - Tobacco Use Smoking Status: Never smoker Assessment/Plan Active and Suspected Problems Severe sepsis (Acute) DEWAYNE (acute kidney injury) (Acute) This is an 82 years old male patient presented to the emergency room because of dry cough and fever as well as mild shortness of breath and weakness and he was found to have severe sepsis secondary to acute viral bronchitis secondary to acute influenza B as well as acute kidney injury. #1 acute viral bronchitis/influenza B: He is on day 3 of Tamiflu. He remained afebrile overnight, blood pressure and heart rate are stable, pulse ox is 90% on room air. Chest x-ray showed no acute infiltrate. White blood cell count is back to normal. Blood and urine cultures showed no growth in 48 hours. Plan to continue same treatment, patient's daughter requested discharge to [facility] facility and based on PT OT evaluation, patient qualified to go to [facility] facility. #2 severe sepsis: He has been afebrile, no more tachycardic, blood pressure stable. Lactic acid is back to normal. It is probably secondary to acute viral infection. No indication for IV antibiotics. Chest x-ray showed no acute infiltrate. Blood and urine reported as negative. #3 acute kidney injury on top of stage III chronic kidney disease: His baseline creatinine recently was around 1.4. Before that, it has been normal. Admission creatinine is 1.75. Patient received IV fluids, creatinine came down to 1.30, improved. #4 hypertension: Blood pressure stable, continue metoprolol. #5 CAD: Stable, no acute issues. Continue aspirin, statins and metoprolol. #6 dementia: With behavioral disturbances. Continue Seroquel and as needed Ativan. #7 GERD: Continue Protonix. #8 DVT prophylaxis: Subcu Lovenox. This note was generated with [employer] dictation software. It may contain incorrect words, spelling, and punctuation that were not noted in checking the note before signing.
--- NOTE | 2017-11-26 08:30 | PN_ITS ---
Patient Problems: Active and Suspected Problems Severe sepsis (Acute) DEWAYNE (acute kidney injury) (Acute) Subjective: Chief complaint: Follow-up after admission for severe sepsis secondary to influenza B/acute bronchitis as well as acute kidney injury. Patient seen and examined. No acute events overnight. He denies any significant complaints. His vital signs are stable, afebrile, pulse ox is 90% on room air. - Physical Exam General: Alert, Cooperative, No apparent distress HEENT: Atraumatic, PERRLA, EOMI Oral: Moist Mucosa, No Gingival or Mucosal Lesions/ Ulcerations Neck: Supple, No JVD, Negative Carotid Bruits, Trachea Midline, Thyroid Normal Size and Texture Lungs: No wheeze, No rales, Diminished, Rhonchi, - - Decreased breath sounds bilateral, bilateral rhonchi. Cardiovascular: Regular rate, Regular Rhythm, Normal S1, Normal S2, PMI Normal Abdomen: Bowel Sounds Present, Soft, Non Tender, Non-Distended, No Hepato- splenomegaly Extremities: No clubbing, No cyanosis, No edema Skin: No rashes, No breakdown Neurological: Cranial nerves II-XII grossly intact, Neuro grossly intact Psych/Mental Status: Normal Affect, Appropriate Vital Signs Temp Pulse Resp BP Pulse Ox 97.5 F L 85 18 127/69 H 90 11/26/17 03:05 11/26/17 06:36 11/26/17 06:36 11/26/17 03:05 11/26/17 06:36 Oxygen Flow Rate (L/min) 1 Oxygen Delivery Method Room Air Weight: 168 lb 13.985 oz Body Mass Index (BMI) 27.2 Intake and Output for Last 24 Hours 11/24/17 11/25/17 11/26/17 23:59 23:59 23:59 Intake Total 850 / 850 780 / 780 100 / 100 Output Total 50 / 50 200 / 200 Balance 800 / 800 780 / 780 -100 / -100 Medical Necessity - Tobacco Use Smoking Status: Never smoker Assessment/Plan Active and Suspected Problems Severe sepsis (Acute) DEWAYNE (acute kidney injury) (Acute) This is an 82 years old male patient presented to the emergency room because of dry cough and fever as well as mild shortness of breath and weakness and he was found to have severe sepsis secondary to acute viral bronchitis secondary to acute influenza B as well as acute kidney injury. #1 acute viral bronchitis/influenza B: He is on day 3 of Tamiflu. He remained afebrile overnight, blood pressure and heart rate are stable, pulse ox is 90% on room air. Chest x-ray showed no acute infiltrate. White blood cell count is back to normal. Blood and urine cultures showed no growth in 48 hours. Plan to continue same treatment, patient's daughter [facility] and based on PT OT evaluation, patient qualified to go to [facility] facility. #2 severe sepsis: He has been afebrile, no more tachycardic, blood pressure stable. Lactic acid is back to normal. It is probably secondary to acute viral infection. No indication for IV antibiotics. Chest x-ray showed no acute infiltrate. Blood and urine reported as negative. #3 acute kidney injury on top of stage III chronic kidney disease: His baseline creatinine recently was around 1.4. Before that, it has been normal. Admission creatinine is 1.75. Patient received IV fluids, creatinine came down to 1.30, improved. #4 hypertension: Blood pressure stable, continue metoprolol. #5 CAD: Stable, no acute issues. Continue aspirin, statins and metoprolol. #6 dementia: With behavioral disturbances. Continue Seroquel and as needed Ativan. #7 GERD: Continue Protonix. #8 DVT prophylaxis: Subcu Lovenox. This note was generated with [employer] dictation software. It may contain incorrect words, spelling, and punctuation that were not noted in checking the note before signing.
--- NOTE | 2017-11-26 09:00 | CASEMGMT ---
Addendum entered by Kelly Zaldivar 11/26/17 11:14: SW completed hospital exemption in [facility]. Pt is now not ready for discharge however. SW called Elizabeth at [facility], left her a message letting her know pt's discharge was cancelled for today, will likely be discharged tomorrow. HAILEE Morel, CLEARING INSPECTOR Original Note: Addendum entered by Kelly Zaldivar 11/26/17 09:31[facility] SW let physician and daughter know, physician will discharge pt. HAILEE Morel, CLEARING INSPECTOR Original Note: SW spoke w/daughter in room, she would like pt to go to [facility] for rehab, pt's is there. SW called Jennifer, faxed referral, they can take pt. SW will let physician know to start the discharge process. HAILEE Morel, CLEARING INSPECTOR
--- NOTE | 2017-11-26 10:00 | PCM.TXEXTCAR ---
- Diet 11/23/17 13:54 Diet: Regular Diet Food consistency:: Regular Liquid Consistency:: Regular/Thin - Routine Orders/Code Status O2 Liters per Minute: 1-2 O2 Frequency: Continuous Keep PO Greater than or Equal to (%): 92 Code Status: DNRCC-A - Wound(s) bilat legs Wound Type: Abrasion - Suggestions for Active Care Change Position every (hours): 3 Hours to sit in a chair: 2 Times a day to sit in chair: 3 - Therapies Weight Bearing: Weight bearing as tolerated Physical Therapy: Eval and Treat Occupational Therapy: Eval and Treat - Allergies/Procedures Done in Hospital Allergies/Adverse Reactions: Allergies No Known Allergies Allergy (Verified 04/03/16 14:19) - Type of Care/Length of Stay Estimated LOS: Convalescent Care Less Than 30 days Type of Care Needed: Skilled Rehab Potential: Fair Prognosis: Fair - Additional Orders/Day of Discharge H&P will serve as current which was dated: 11/23/17 Day of Discharge: 11/26/17 - Dietary and Speech Recommendations Dietitian Recommendations/Changes: Continue regular diet & ensure enlive on medpass as PO established. Cardiac diet as indicated. Reweigh as able. - Follow Up Care Primary Care Physician: Randy Buchanan MD [Primary Care Provider] - Please follow up with your Primary Care Physician in: 2 weeks.
[2017-11-26] MEDS: DULoxetine Hcl 60 MG Capsule PO (10:09)
[2017-11-26] MEDS: Oseltamivir Phosphate 30 MG Capsule PO ×2 (10:10→21:24)
[2017-11-26] MEDS: Enoxaparin 30 MG/0.3 ML Syringe SC (10:10)
[2017-11-26] MEDS: Pantoprazole Sodium 20 MG Tablet PO (10:10)
[2017-11-26] MEDS: Amox/Clavulanate 875 MG Tablet PO ×2 (12:08→21:25)
[2017-11-26] MEDS: HYDROcodone Bitartrate/Apap 5/325 Tablet PO (21:24)
[2017-11-26] MEDS: QUEtiapine 100 MG Tablet PO (21:25)
[2017-11-26] MEDS: Donepezil HCl 10 MG Tablet PO (21:25)
[2017-11-26] MEDS: Atorvastatin Calcium 20 MG Tablet PO (21:34)
[2017-11-27] MEDS: Ipratropium/Albuterol Sulfate 3 ML AMPUL.NEB INHALATION ×3 (03:05→10:41)
[2017-11-27 03:12] VITALS: BP 100/67; PULSE 77; RESP 18; TEMP 37.2; O2SAT 94
[2017-11-27 06:55] VITALS: PULSE 81; RESP 18; O2SAT 95
[2017-11-27] MEDS: Aspirin 81 MG TAB.CHEW PO (07:56)
[2017-11-27] MEDS: Amox/Clavulanate 875 MG Tablet PO (07:57)
[2017-11-27] MEDS: QUEtiapine 100 MG Tablet 200 MG PO (07:57)
[2017-11-27 07:58] VITALS: BP 117/67; PULSE 88
[2017-11-27] MEDS: Metoprolol Tartrate 25 MG Tablet PO (07:58)
[2017-11-27] MEDS: DULoxetine Hcl 60 MG Capsule PO (07:58)
[2017-11-27] MEDS: Pantoprazole Sodium 20 MG Tablet PO (07:59)
[2017-11-27] MEDS: Enoxaparin 30 MG/0.3 ML Syringe SC (07:59)
[2017-11-27] MEDS: Oseltamivir Phosphate 30 MG Capsule PO (08:00)
[2017-11-27 09:03] VITALS: BP 117/67; PULSE 84; RESP 20; TEMP 36.9; O2SAT 94
--- NOTE | 2017-11-27 09:30 | PCM.TXEXTCAR ---
- Diet 11/23/17 13:54 Diet: Regular Diet Food consistency:: Regular Liquid Consistency:: Regular/Thin - Routine Orders/Code Status O2 Frequency: Continuous Keep PO Greater than or Equal to (%): 92 Code Status: DNRCC-A - Wound(s) bilat legs Wound Type: Abrasion - Suggestions for Active Care Change Position every (hours): 3 Hours to sit in a chair: 2 Times a day to sit in chair: 3 - Therapies Weight Bearing: Weight bearing as tolerated Physical Therapy: Eval and Treat Occupational Therapy: Eval and Treat - Allergies/Procedures Done in Hospital Allergies/Adverse Reactions: Allergies No Known Allergies Allergy (Verified 04/03/16 14:19) - Type of Care/Length of Stay Estimated LOS: Convalescent Care Less Than 30 days Type of Care Needed: Skilled Rehab Potential: Fair Prognosis: Fair - Additional Orders/Day of Discharge H&P will serve as current which was dated: 11/23/17 Day of Discharge: 11/26/17 - Dietary and Speech Recommendations Dietitian Recommendations/Changes: Continue regular diet & ensure enlive on medpass as PO established. Cardiac diet as indicated. Will continue Ensure Pudding with Lunch and Dinner for additional nutrition if consumed. Reweigh as able. - Follow Up Care Primary Care Physician: Randy Buchanan MD [Primary Care Provider] - Please follow up with your Primary Care Physician in: 2 weeks.
[2017-11-27 10:41] VITALS: PULSE 85; RESP 18
--- NOTE | 2017-11-27 10:47 | CASEMGMT ---
Social Work Spoke with physician and pt ready for discharge today. Met with pt and dgt in room. Pt sleeping, dgt is agreeable to transfer to [facility] today and would prefer pt transferred prior to lunch. Dgt would prefer [facility]. Phone call to [facility] and transport not available until this afternoon. Phone call to [facility] and they are able to transport at 1145. Met with dgt and she would prefer 1145 with [facility]. Orders faxed to [facility] and phone call to Jennifer at [facility] and informed of d/c berry picker time. Nurse notified of d/c time. No further d/c needs. EJ Tomlin
--- NOTE | 2017-11-27 15:09 | PCM.DC.SUM ---
Discharge Date and Diagnosis Date of Admission: 11/23/17 Date of Discharge: 11/27/17 - Primary Discharge Diagnosis #1 acute viral bronchitis/influenza B. #2 severe sepsis. #3 acute kidney injury with above stage III chronic kidney disease. - Secondary Discharge Diagnosis Chronic Problems CKD (chronic kidney disease), stage III (Chronic) Dementia (Chronic) Hypertension (Chronic) GERD (gastroesophageal reflux disease) (Chronic) CAD (coronary artery disease) (Chronic) Hospital Course and Treatment Imaging Results: Clinical Impression(s) from Imaging Studies Chest X-Ray 11/23/17 11:55 IMPRESSION: Elevation of the right hemidiaphragm with increased linear markings at the right lung base suggestive of possible atelectasis. Electronically Signed: Elder Persaud MD at 13:01 EDT Tel [phone], Service support , Operations: None Procedures: None Summary of Care Provided: Patient seen and examined on the day of discharge and appeared to be stable to be discharged home. He remained stable, no significant complaints. Has vital signs remained stable, remained afebrile and remains on 2 L of oxygen. - Physical Exam General: Alert, disoriented at baseline, cooperative, No apparent distress. HEENT: Atraumatic, PERRLA, EOMI. Neck: Supple, No JVD, Negative Carotid Bruits, Trachea Midline, Thyroid Normal. Lungs: Diminished breath sounds bilateral, occasional rhonchi, No wheeze, No rales. Cardiovascular: Regular rate, Regular Rhythm, Normal S1, Normal S2, PMI Normal. Abdomen: Bowel Sounds Present, Soft, Non Tender, Non-Distended, No Hepato-splenomegaly. Extremities: No clubbing, No cyanosis, No edema Skin: No rashes, No breakdown Neurological: Neuro grossly intact Vital Signs are stable. Hospital course: The patient is a 82 year old M admitted because of fever, dry cough and shortness of breath as well as weakness and he was found to have severe sepsis secondary to acute viral bronchitis and influenza B as well as acute kidney injury on top of stage III chronic kidney disease. His chest x-ray showed no evidence of acute infiltrate, consolidation or effusion, showed elevation of the right hemidiaphragm. He was treated with IV fluids, bronchodilators and Tamiflu. On the fourth day of admission, he was started on Augmentin for bronchitis although it is viral bronchitis because his daughter insisted that he started on antibiotics claiming that every time he has bronchitis, his PCP put him on antibiotics. His lactic acid on admission was 2.8 and with IV fluid therapy, it came down to 1.1. His leukocytosis returned back to normal. He was found to have acute on chronic kidney failure and his creatinine came down from 1.75 from admission down to 1.30 which is at baseline. Blood culture showed no growth in 48 hours. Urine culture showed no growth. Patient's symptoms improved and he remained on 2 L of oxygen. Patient discharged to [facility] in a stable medical condition, discharged on Augmentin to complete 7 days of treatment, discharged on Tamiflu to complete 5 days of treatment, discharged on albuterol every 6 hours, continue with on his chronic home medication without any changes, recommended follow-up with PCP in 2 weeks. Home Medications: Medications to take at Discharge Aspirin [Aspirin, Baby] 81 mg PO DAILY@0800 04/03/16 Donepezil HCl [Aricept] 10 mg PO QHS 04/03/16 Ergocalciferol [Vitamin D] 50,000 unit PO GARIBAY 04/03/16 Hydrocodone/Acetaminophen [Hydrocodone-Acetamin 5-325 mg] 1 each PO BID PRN PRN 04/03/16 Lorazepam [Ativan] 0.5 mg PO DAILY PRN PRN 04/03/16 Meloxicam [Mobic] 15 mg PO DAILY 04/03/16 Metoprolol Tartrate [Lopressor (beta ximena)] 20 mg PO DAILY 04/03/16 Omeprazole [Prilosec] 20 mg PO DAILY 04/03/16 Quetiapine Fumarate [Seroquel XR] 100 mg PO QHS 04/03/16 Cyanocobalamin (Vitamin B-12) [Vitamin B-12] 1,000 mcg PO DAILY 11/23/17 Duloxetine Hcl [Cymbalta] 60 mg PO DAILY 11/23/17 Ensure Enlive 120 ml PO 4X/DAY 11/23/17 Quetiapine Fumarate [Seroquel] 200 mg PO BREAKFAST 11/23/17 Simvastatin 40 mg PO QHS 11/23/17 Albuterol Aerosols [Ventolin Aerosols] 2.5 mg INHALATION Q6H #1 vial.neb. 11/26/17 Oseltamivir Phosphate [Tamiflu] 30 mg PO BID #4 cap 11/26/17 Amox/Clavulanate Tablet [Augmentin Tablet] 875 mg PO BIDCM #12 tab 11/27/17 Following Prescrptions Were Given to Patient: Amox/Clavulanate Tablet [Augmentin Tablet] 875 mg PO BIDCM #12 tab Oseltamivir Phosphate [Tamiflu] 30 mg PO BID #4 cap Albuterol Aerosols [Ventolin Aerosols] 2.5 mg INHALATION Q6H #1 vial.neb. Primary Care Physician: Randy Buchanan MD [Primary Care Provider] - Please follow up with your Primary Care Physician in: 2 weeks. Disposition: Alf facility Minutes spent on discharge:: 32 Patient Condition:: Stable Medical Necessity - Tobacco Use Smoking Status: Never smoker Meaningful Use Info Meaningful Use Diagnoses (Choose all that apply): None applicable Code Visit Inpatient E&M: 40155 Disch Hosp
--- NOTE | 2017-11-27 15:14 | DS.PCM_ITS ---
Discharge Date and Diagnosis Date of Admission: 11/23/17 Date of Discharge: 11/27/17 - Primary Discharge Diagnosis #1 acute viral bronchitis/influenza B. #2 severe sepsis. #3 acute kidney injury with above stage III chronic kidney disease. - Secondary Discharge Diagnosis Chronic Problems CKD (chronic kidney disease), stage III (Chronic) Dementia (Chronic) Hypertension (Chronic) GERD (gastroesophageal reflux disease) (Chronic) CAD (coronary artery disease) (Chronic) Hospital Course and Treatment Imaging Results: Clinical Impression(s) from Imaging Studies Chest X-Ray 11/23/17 11:55 IMPRESSION: Elevation of the right hemidiaphragm with increased linear markings at the right lung base suggestive of possible atelectasis. Electronically Signed: Elder Persaud MD at 13:01 EDT Tel [phone], Service support , Operations: None Procedures: None Summary of Care Provided: Patient seen and examined on the day of discharge and appeared to be stable to be discharged home. He remained stable, no significant complaints. Has vital signs remained stable, remained afebrile and remains on 2 L of oxygen. - Physical Exam General: Alert, disoriented at baseline, cooperative, No apparent distress. HEENT: Atraumatic, PERRLA, EOMI. Neck: Supple, No JVD, Negative Carotid Bruits, Trachea Midline, Thyroid Normal. Lungs: Diminished breath sounds bilateral, occasional rhonchi, No wheeze, No rales. Cardiovascular: Regular rate, Regular Rhythm, Normal S1, Normal S2, PMI Normal. Abdomen: Bowel Sounds Present, Soft, Non Tender, Non-Distended, No Hepato- splenomegaly. Extremities: No clubbing, No cyanosis, No edema Skin: No rashes, No breakdown Neurological: Neuro grossly intact Vital Signs are stable. Hospital course: The patient is a 82 year old M admitted because of fever, dry cough and shortness of breath as well as weakness and he was found to have severe sepsis secondary to acute viral bronchitis and influenza B as well as acute kidney injury on top of stage III chronic kidney disease. His chest x-ray showed no evidence of acute infiltrate, consolidation or effusion, showed elevation of the right hemidiaphragm. He was treated with IV fluids, bronchodilators and Tamiflu. On the fourth day of admission, he was started on Augmentin for bronchitis although it is viral bronchitis because his daughter insisted that he started on antibiotics claiming that every time he has bronchitis, his PCP put him on antibiotics. His lactic acid on admission was 2.8 and with IV fluid therapy, it came down to 1.1. His leukocytosis returned back to normal. He was found to have acute on chronic kidney failure and his creatinine came down from 1.75 from admission down to 1.30 which is at baseline. Blood culture showed no growth in 48 hours. Urine culture showed no growth. Patient's symptoms improved and he remained on 2 L of oxygen. Patient discharged to [facility] facility in a stable medical condition, discharged on Augmentin to complete 7 days of treatment, discharged on Tamiflu to complete 5 days of treatment, discharged on albuterol every 6 hours, continue with on his chronic home medication without any changes, recommended follow-up with PCP in 2 weeks. Home Medications: Medications to take at Discharge Aspirin [Aspirin, Baby] 81 mg PO DAILY@0800 04/03/16 Donepezil HCl [Aricept] 10 mg PO QHS 04/03/16 Ergocalciferol [Vitamin D] 50,000 unit PO GARIBAY 04/03/16 Hydrocodone/Acetaminophen [Hydrocodone-Acetamin 5-325 mg] 1 each PO BID PRN PRN 04/03/16 Lorazepam [Ativan] 0.5 mg PO DAILY PRN PRN 04/03/16 Meloxicam [Mobic] 15 mg PO DAILY 04/03/16 Metoprolol Tartrate [Lopressor (beta ximena)] 20 mg PO DAILY 04/03/16 Omeprazole [Prilosec] 20 mg PO DAILY 04/03/16 Quetiapine Fumarate [Seroquel XR] 100 mg PO QHS 04/03/16 Cyanocobalamin (Vitamin B-12) [Vitamin B-12] 1,000 mcg PO DAILY 11/23/17 Duloxetine Hcl [Cymbalta] 60 mg PO DAILY 11/23/17 Ensure Enlive 120 ml PO 4X/DAY 11/23/17 Quetiapine Fumarate [Seroquel] 200 mg PO BREAKFAST 11/23/17 Simvastatin 40 mg PO QHS 11/23/17 Albuterol Aerosols [Ventolin Aerosols] 2.5 mg INHALATION Q6H #1 vial.neb. Oseltamivir Phosphate [Tamiflu] 30 mg PO BID #4 cap 11/26/17 Amox/Clavulanate Tablet [Augmentin Tablet] 875 mg PO BIDCM #12 tab 11/27/17 Following Prescrptions Were Given to Patient: Amox/Clavulanate Tablet [Augmentin Tablet] 875 mg PO BIDCM #12 tab Oseltamivir Phosphate [Tamiflu] 30 mg PO BID #4 cap Albuterol Aerosols [Ventolin Aerosols] 2.5 mg INHALATION Q6H #1 vial.neb. Primary Care Physician: Randy Buchanan MD [Primary Care Provider] - Please follow up with your Primary Care Physician in: 2 weeks. Disposition: Detention facility Minutes spent on discharge:: 32 Patient Condition:: Stable Medical Necessity - Tobacco Use Smoking Status: Never smoker Meaningful Use Info Meaningful Use Diagnoses (Choose all that apply): None applicable Code Visit Inpatient E&M: 41195 Disch Hosp
== END 2017-11-27 11:52 | disposition skilled nursing facility (03) | DRG 872 ==
LOC: ED 12:12 → MS2 14:21
PROVIDERS: Emergency Provider Emergency Medicine; Family Provider Family Medicine; PCP Family Medicine; Visit Provider Hospitalist
DX: A41.89 Other specified sepsis (principal); N17.9 Acute kidney failure, unspecified; F03.91 Unspecified dementia, unspecified severity, with behavioral disturbance; R65.20 Severe sepsis without septic shock; J10.1 Influenza due to other identified influenza virus with other respiratory manifestations; J20.8 Acute bronchitis due to other specified organisms; I12.9 Hypertensive chronic kidney disease with stage 1 through stage 4 chronic kidney disease, or unspecified chronic kidney disease; N18.3 Chronic kidney disease, stage 3 (moderate); K21.9 Gastro-esophageal reflux disease without esophagitis; I25.10 Atherosclerotic heart disease of native coronary artery without angina pectoris
CPT/HCPCS: 36415; 71046; 80048; 83605; 85025; 87040; 87086; 87633; 87804; 93005; 94640; 94667; 94668; 94762; 97110; 97162; 97166; 97530; 97802; 99285; J7030; A4216

== ENCOUNTER → 2018-02-27 06:58 | Outpatient (CLI) | payer MEDICARE, OTHER, SELFPAY ==
[2018-02-27 08:24] LABS: AST(SGOT) 18 U/L (15-37); Alanine Aminotransfer ALT/SGPT 22 U/L (16-61); Albumin, Serum 3.6 g/dL (3.2-5.0); Alkaline Phosphatase 58 U/L (45-117); Bilirubin, Direct 0.09 mg/dL (0.00-0.30); Cholesterol 134 mg/dL (200); Globulin 3.4 g/dL (2.2-4.2); High Density Lipoprotein 51 mg/dL; Triglycerides 112 mg/dL; Very Low Density Lipoprotein 22 mg/dL (5-40)
== END ==
PROVIDERS: Family Provider Family Medicine; PCP Family Medicine; Visit Provider Internal Medicine Cardiovascular Disease
DX: E78.5 Hyperlipidemia, unspecified (principal); Z79.899 Other long term (current) drug therapy
CPT/HCPCS: 36415; 80061; 80076

== ENCOUNTER → 2018-06-15 15:05 | Outpatient (CLI) | payer MEDICARE, OTHER, SELFPAY | PROVIDERS: Family Provider Family Medicine; PCP Family Medicine; Referring Provider Family Medicine; Visit Provider Family Medicine | DX: R31.9 Hematuria, unspecified (principal) | CPT/HCPCS: 87086; 87088 ==

== ENCOUNTER → 2018-07-21 08:28 | Outpatient (CLI) | payer MEDICARE, OTHER, SELFPAY ==
--- NOTE | 2018-07-21 08:36 | US_ITS ---
STUDY: RENAL ULTRASOUND - COMPLETE REASON FOR EXAM: Male, 83 years old. Hematuria. TECHNIQUE: Ultrasound evaluation of the kidneys was performed with real-time and static bowden-scale imaging. COMPARISON: None. FINDINGS: RIGHT KIDNEY: 9.5 x 4.7 x 5.5 cm. Normal renal cortical thickness 1.1 cm. Normal echotexture. There is no mass, calculus or hydronephrosis. 2.8 x 2.0 x 2.5 cm simple cyst. LEFT KIDNEY: 10.6 x 4.7 x 5.5 cm. Normal cortical thickness 1.1 cm. Normal cortical echotexture. There is no mass, calculus or hydronephrosis. Left kidney, 3 cysts, measuring 3.8 cm, 2.4 cm, and 2.3 cm respectively. Simple cystic features. BLADDER: The urinary bladder appears normal in caliber, contour and wall thickness. Urinary bladder volume is 51 mL, only mildly distended. Along the left posterior lateral wall the urinary bladder there is a 1.4 x 1.3 x 0.8 cm heterogeneously hypoechoic focus intimately associated with the mucosa. This focus does not demonstrate internal flow on Doppler images. US/Kidney and Bladder IMPRESSION: Benign bilateral renal cysts, otherwise normal kidneys. Heterogeneously hypoechoic 14 x 13 x 8 mm focus appears to be adherent to the left posterior mucosa of the urinary bladder. In the setting of hematuria, differential considerations include debris/thrombus, and urothelial neoplasm. After resolution of the patient's hematuria, a follow-up ultrasound should be performed with a properly distended urinary bladder to assess for persistence of this finding. Thrombus or debris should clear. Persistence should prompt urologic consultation for exclusion of urothelial neoplasm. Electronically Signed: Kobi Grande, at 15:31 EST Tel , Service support ,
== END ==
PROVIDERS: Family Provider Family Medicine; PCP Family Medicine; Referring Provider Urology; Visit Provider Urology
DX: R31.9 Hematuria, unspecified (principal)
CPT/HCPCS: 76770

== ENCOUNTER 2018-08-20 08:11 | Day surgery (SDC) | payer MEDICARE, OTHER, SELFPAY ==
[2018-08-13 09:43] VITALS: BP 116/75; PULSE 73; RESP 14; TEMP 36.3; O2SAT 94; BMI 30.9
[2018-08-13 11:19] LABS: AST(SGOT) 17 U/L (15-37); Alanine Aminotransfer ALT/SGPT 19 U/L (16-61); Albumin, Serum 3.4 g/dL (3.2-5.0); Alkaline Phosphatase 56 U/L (45-117); Bilirubin, Direct 0.11 mg/dL (0.00-0.30); Cholesterol 138 mg/dL (200); Globulin 3.5 g/dL (2.2-4.2); High Density Lipoprotein 48 mg/dL; Protein, Total 6.9 g/dL (6.4-8.2); Triglycerides 147 mg/dL; Very Low Density Lipoprotein 29 mg/dL (5-40)
[2018-08-16 11:00] VITALS: BMI 30.9
[2018-08-20 08:39] VITALS: BP 145/66; PULSE 82; RESP 18; TEMP 36.4; O2SAT 93; BMI 30.9
[2018-08-20] MEDS: Cefazolin 2 GM in 0.9% Normal Saline 100 ML IV (10:28)
[2018-08-20] MEDS: Bupivacaine Mpf 0.5% 30 ML VIAL (10:42)
--- NOTE | 2018-08-20 11:00 | DCINST_ITS ---
Discharge Diet: Light diet - advance as tolerated Discharge Activity: No Restrictions Ice area for (Minutes): 20 - penis off and manager corporate responsibility your doctor if your incision/area has: Continuous Slow Oozing, Sudden Increased Bleeding, Increased Pain/ Swelling, Increased Redness, Foul Smelling Discharge, Swelling at the incision site Suture Line Care: Avoid Pulling/Pushing, Avoid Pinching/Bending Allergies/Adverse Reactions: Allergies No Known Allergies Allergy (Verified 08/16/18 11:01) Medications to take at Discharge Aspirin [Aspirin, Baby] 81 mg PO DAILY@0800 04/03/16 Donepezil HCl [Aricept] 10 mg PO QHS 04/03/16 Hydrocodone/Acetaminophen [Hydrocodone-Acetamin 5-325 mg] 1 ea PO BID 04/03/16 Meloxicam [Mobic] 15 mg PO DAILY 04/03/16 Omeprazole [Prilosec] 20 mg PO DAILY 04/03/16 Cyanocobalamin (Vitamin B-12) [Vitamin B-12] 1,000 mcg PO DAILY 11/23/17 Duloxetine Hcl [Cymbalta] 60 mg PO DAILY 11/23/17 Quetiapine Fumarate [Seroquel] 200 mg PO BREAKFAST 11/23/17 Simvastatin 40 mg PO QHS 11/23/17 cholecalciferol (vitamin D3) 50,000 unit capsule 50,000 unit PO QWEEK 03/01/18 Quetiapine Fumarate [Seroquel] 100 mg PO QHS 08/13/18 metoprolol succinate ER 25 mg tablet,extended release 24 hr 25 mg PO DAILY 30 Days #30 tab 08/16/18 Acetaminophen [Tylenol Extra Strength] 500 mg PO Q6H PRN PRN #20 tablet 08/20/18 Ibuprofen [Motrin] 400 mg PO Q6H PRN PRN #20 tablet 08/20/18 The following prescriptions were given: Acetaminophen [Tylenol Extra Strength] 500 mg PO Q6H PRN PRN #20 tablet PRN Reason: Pain Ibuprofen [Motrin] 400 mg PO Q6H PRN PRN #20 tablet PRN Reason: Pain Primary Care Physician: Randy Buchanan MD [Primary Care Provider] - Test Results: Test results from this visit will be discussed in further detail at your follow- up appointment, if applicable. Please Follow Up With: Gerardo Aldana MD When: in 2 weeks, please call to make an appointment.
--- NOTE | 2018-08-20 11:00 | PCM.OPRPT ---
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 Post-Operative Diagnosis: Same Surgery/Procedure Performed:: Circumcision and cystoscopy Description of Surgical Findings:: 83-year-old male taken back to the operating room after smooth induction of MAC local was placed supine on the table penis was prepped and draped in usual sterile fashion we did a ring block around the penis with Marcaine and after performing a block in the penis we then performed a dorsal slit I then circumferentially dissected the foreskin off the penis and then circumferentially dissected off the mckenzie foreskin was then removed I then reapproximated the skin to the subcoronal tissue with a running 4-0 chromic stitch, cystoscopy was then performed a normal channel normal urethra pendulous urethra is normal bulbar mid membranous urethra is normal sphincter was intact verumontanum was intact he had a resected open channel inside the bladder was fairly heavily trabeculated no tumors or stones seen within the bladder had a wide open channel from his bladder to the sphincter no obstructing tissue. After completing the circumcision dressings were placed cystoscopy basically showed a prior TURP open channel no other procedure that can be done of the prostate to alleviate any obstruction chronically trabeculated bladder from obstruction. Patient's anesthetic is currently being reversed. Type of Anesthesia:: General Drains: none - Admit VTE Documentation VTE Present on Admission: No VTE Mechan Device Prophylaxis: SCD's
[2018-08-20 11:10] VITALS: BP 113/78; BP 145/66; PULSE 69; RESP 16; TEMP 36.6; O2SAT 95
[2018-08-20 11:15] VITALS: BP 140/72; BP 145/66; PULSE 67; RESP 16; O2SAT 96
[2018-08-20 11:20] VITALS: BP 145/66; BP 153/81; PULSE 70; RESP 16; O2SAT 96
[2018-08-20 11:25] VITALS: BP 145/66; BP 160/89; PULSE 70; RESP 16; TEMP 36.3; O2SAT 97
[2018-08-20 12:37] VITALS: BP 145/66; BP 145/85; PULSE 72; RESP 16; TEMP 36.2; O2SAT 97
--- OUTSIDE RECORDS SUMMARY | 2018-10-05 19:49 | XMS RPT_ITS ---
:1935 Author Organization [facility] Support Name Relationship Address Phone ASHWINI JOSIE Unavailable [address] + [place] [address] CYNTHIA MARADIAGA Unavailable [address] + [place] [address] R Unavailable Unavailable Unavailable JOSIE MARADIAGA Unavailable [address] + [place] [address] CYNTHIA MARADIAGA Unavailable [address] + [place] [address] R Unavailable Unavailable Unavailable JOSIE MARADIAGA Unavailable [address] + [place] [address] CYNTHIA MARADIAGA Unavailable [address] + [place] [address] R Unavailable Unavailable Unavailable JOSIE MARADIAGA Unavailable [address] + [place] [address] CYNTHIA MARADIAGA Unavailable [address] + [place] [address] R Unavailable Unavailable Unavailable CYNTHIA GONZALES Unavailable [address] + [place] [address] JOSEI MARADIAGA Unavailable [address] + [place] [address] R Unavailable Unavailable Unavailable CYNTHIA GONZALES Unavailable [address] + [place] [address] JOSIE MARADIAGA Unavailable [address] + [place] [address] R Unavailable Unavailable Unavailable CYNTHIA GONZALES Unavailable [address] + [place] [address] JOSIE MARADIAGA Unavailable [address] + [place] [address] R Unavailable Unavailable Unavailable GIAQUE, CYNTHIA Unavailable [address] + [place] [address] JOSIE MARADIAGA Unavailable [address] + [place] [address] R Unavailable Unavailable Unavailable GIAQUE, CYNTHIA Unavailable [facility] [address] + [place] [address] JOSIE MARADIAGA Unavailable [address] + [place] [address] R Unavailable Unavailable Unavailable GIAQUE, CYNTHIA Unavailable [facility] [address] + [place] [address] JOSIE MARADIAGA Unavailable [address] + [place] [address] R Unavailable Unavailable Unavailable GIAQUE, CYNTHIA Unavailable [facility] [address] + [place] [address] JOSIE MARADIAGA Unavailable [address] + [place] [address] R Unavailable Unavailable Unavailable GIAQUE, CYNTHIA Unavailable [facility] [address] + [place] [address] JOSIE MARADIAGA Unavailable [address] + [place] [address] R Unavailable Unavailable Unavailable GIAQUE, CYNTHIA Unavailable [facility] [address] + [place] [address] JOSIE MARADIAGA Unavailable [address] + [place] [address] R Unavailable Unavailable Unavailable GIAQUE, CYNTHIA Unavailable [facility] [address] + [place] [address] JOSIE MARADIAGA Unavailable [address] + [place] [address] R Unavailable Unavailable Unavailable GIAQUE, CYNTHIA Unavailable [facility] [address] + [place] [address] JOSIE MARADIAGA Unavailable [address] + [place] [address] R Unavailable Unavailable Unavailable Care Team Providers Name Role Phone Jopperi, Parth Admitting Unavailable Ashelfah, Ghasem Attending Unavailable [facility] Primary Care Unavailable Ashelfah, Ghasem Consulting Unavailable Mitch Carl Attending [facility]available [facility] Referring Unavailable [facility] Care Unavailable Jopperi, Parth Admitting Unavailable Ashelfah, Ghasem Attending Unavailable [facility] Primary Care Unavailable Ashelfah, Ghasem Consulting Unavailable Jopperi, Parth Admitting Unavailable Ashelfah, Ghasem Attending Unavailable [facility] Care Unavailable Ashelfah, Ghasem Consulting Unavailable Shahlaeri, Parth Attending Unavailable [facility] Care Unavailable [facility] Primary Care Unavailable Jopperi, Parth Admitting Unavailable Ashelfah, Ghasem Attending Unavailable [facility], Josesitoer Attending Unavailable [facility] Care Unavailable [facility], Hieu Attending Unavailable [facility] Care Unavailable Robyn Farrell Attending Unavailable [facility] Referring Unavailable Gerardo Aldana Attending Unavailable JovanGerardo Referring Unavailable [facility] Care Unavailable Mitch Carl Consulting Unavailable Gerardo Aldana Attending Unavailable JovanGerardo Referring Unavailable [facility] Care Unavailable Parth Wheat Attending Unavailable Parth Wheat Referring Unavailable [facility] Unavailable Robyn Falcon Attending Unavailable Mitch Carl Attending Unavailable Mitch Carl Referring Unavailable [facility] Care Unavailable Jopperi, Parth Admitting Unavailable Ashelfah, Ghasem Attending Unavailable [facility] Care Unavailable Ashelfah, Ghasem Consulting Unavailable PROBLEMS PROBLEMS DATE TYPE CONDITION / CODE ATTENDING STATUS SOURCE 09/15/2018 Unknown 401.1 - Benign Dewayne, Active [place] essential [facility] hypertension / Hospital 401.1(ICD-9) Repository 09/15/2018 Unknown I10 - Essential Ranney, Active [place] (primary) [facility] hypertension / Hospital I10(ICD-10) Repository 09/15/2018 Unknown 266.2 - Other Ranney, Active [place] B-complex [facility] deficiencies / Hospital 266.2(ICD-9) Repository 09/15/2018 Unknown 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, 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 [facility] B group vitamins / Hospital E53.8(ICD-10) Repository 08/20/2018 Unknown E78.5 - Gerardo Aldana Active [place] Hyperlipidemia, [place] [facility] unspecified / Hospital E78.5(ICD-10) Repository 06/15/2018 Unknown R31.9 - Hematuria, Wheat, Parth Active [place] unspecified / Community R31.9(ICD-10) Hospital Repository 02/27/2018 Unknown Z79.899 - Other MoodispawMitch Active [place] halfway Community (current) drug Hospital therapy / Repository Z79.899(ICD-10) PROCEDURES PROCEDURES No Procedure Records FoundRESULTS RESULTS CBC-COMPLETE BLOOD CNT Collected: 09/15/2018 Status: F Source: [place] NO DIFF 9:44 AM [facility] REPOSITORY TYPE CODE TESTS RESULT OUT OF RANGE REFERENCE UNITS LAB L100.1000 4.4-11.0 K/mm3 Normal WBC 8.8 LAB L100.1200 4.6-6.2 M/mm3 Low RBC 4.39 LAB L100.1300 13.0-16.5 g/dl Low HGB 11.7 LAB L100.1400 40-54 % Low HCT 37.3 LAB L100.1500 80-94 fL Normal MCV 85.0 LAB L100.1600 27.0-32.0 pg Low MCH 26.7 LAB L100.1700 32-36 g/gl Low MCHC 31.4 LAB L100.1810 11.6-14.6 % High RDW CV 15.2 LAB L100.1820 35.1-43.9 fl High RDW SD 47.3 LAB L100.1900 150-450 K/mm3 Normal PLT 265 LAB L100.2000 6.2-12.0 fl Normal MPV 9.4 Performed By: #### L100.0500, L503.0105, L500.2500 #### [facility] [address] [place], [address] VITAMIN B12 Collected: 09/15/2018 Status: F Source: [place] 9:44 AM [facility] REPOSITORY TYPE CODE TESTS RESULT OUT OF REFERENCE UNITS RANGE LAB L503.0105 211-911 pg/mL High Vitamin B12 > 2000 Performed By: #### L100.0500, L503.0105, L500.2500 #### [facility] [address] [place], [address] BASIC METABOLIC Collected: 09/15/2018 Status: F Source: [place] PROFILE (BMP) 9:44 AM [facility] REPOSITORY TYPE CODE TESTS RESULT OUT OF RANGE REFERENCE UNITS LAB L501.0100 74-106 mg/dL High GLU 137 Result Comment: Fasting Glucose result greater than or equal to 126 mg/dL suggests DIABETES MELLITUS per A.D.A. criteria. Please note revised GLUCOSE reference range effective 2017. LAB L501.1000 7-18 mg/dL High BUN 28 LAB L501.1100 0.70-1.30 mg/dL High CREAT,SERUM 1.92 Result Comment: The validity of the calculated GFR AND GFRAA in patients over 70 years has not been determined. Clinical correlation is essential. LAB L501.1110 >60 mL/min Low EST GFR 36 Result Comment: Non- GFR Calc LAB L501.1115 >60 mL/min Low EST GFR - AA 43 Result Comment: GFR Calc LAB L501.1300 10-20 RATIO Normal BUN/CRE 14.6 LAB L501.2200 8.5-10.1 mg/dL CA Normal 8.8 LAB L501.5300 136-145 mmol/L NA Normal 142 LAB L501.5600 3.5-5.1 mmol/L K Normal 4.3 LAB L501.5900 98-107 mmol/L CL Normal 107 LAB L501.6100 21.0-32.0 mmol/L Normal CO2 22.0 LAB L501.6200 5-15 Normal GAP 13 Performed By: #### L100.0500, L503.0105, L500.2500 #### [facility] [address] 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 Post-Operative Diagnosis: Same Surgery/Procedure Performed:: Circumcision and cystoscopy Description of Surgical Findings:: 83-year-old male taken back to the operating room after smooth induction of MAC local was placed supine on the table penis was prepped and draped in usual sterile fashion we did a ring block around the penis with Marcaine and after performing a block in the penis we then performed a dorsal slit I then circumferentially dissected the foreskin off the penis and then circumferentially dissected off the mckenzie foreskin was then removed I then reapproximated the skin to the subcoronal tissue with a running 4-0 chromic stitch, cystoscopy was then performed a normal channel normal urethra pendulous urethra is normal bulbar mid membranous urethra is normal sphincter was intact verumontanum was intact he had a resected open channel inside the bladder was fairly heavily trabeculated no tumors or stones seen within the bladder had a wide open channel from his bladder to the sphincter no obstructing tissue. After completing the circumcision dressings were placed cystoscopy basically showed a prior TURP open channel no other procedure that can be done of the prostate to alleviate any obstruction chronically trabeculated bladder from obstruction. Patient's anesthetic is currently being reversed. Type of Anesthesia:: General Drains: none - Admit VTE Documentation VTE Present on Admission: No VTE Mechan Device Prophylaxis: SCD's 08/20/18 1103 <Electronically signed by Gerardo Aldana MD> Date Gerardo Aldana MD CC: Hieu Buchanan MD; Gerardo Aldana MD; Mitch Carl MD Signed DISCHARGE INSTRUCTION Observed: 08/20/2018 Status: F Source: [place] 11:00 AM [facility] REPOSITORY [facility] Medical Records Department [address] [place] [address] Instructions for Home/Discharge Instructions 08/20/18 1100 MR#: [id number] Acct: [id number] Name: TUCKER MARADIAGA Rep #: [id number] : 1935 83 From: Gerardo Aldana MD PCP: Hieu Buchanan MD Status: [facility] Discharge Diet: Light diet - advance as tolerated Discharge Activity: No Restrictions Ice area for (Minutes): 20 - penis off and vp production your doctor if your incision/area has: Continuous Slow Oozing, Sudden Increased Bleeding, Increased Pain/ Swelling, Increased Redness, Foul Smelling Discharge, Swelling at the incision site Suture Line Care: Avoid Pulling/Pushing, Avoid Pinching/Bending Allergies/Adverse Reactions: Allergies No Known Allergies Allergy (Verified 08/16/18 11:01) Medications to take at Discharge Aspirin [Aspirin, Baby] 81 mg PO DAILY@0800 04/03/16 Donepezil HCl [Aricept] 10 mg PO QHS 04/03/16 Hydrocodone/Acetaminophen [Hydrocodone-Acetamin 5-325 mg] 1 ea PO BID 04/03/16 Meloxicam [Mobic] 15 mg PO DAILY 04/03/16 Omeprazole [Prilosec] 20 mg PO DAILY 04/03/16 Cyanocobalamin (Vitamin B-12) [Vitamin B-12] 1,000 mcg PO DAILY 11/23/17 Duloxetine Hcl [Cymbalta] 60 mg PO DAILY 11/23/17 Quetiapine Fumarate [Seroquel] 200 mg PO BREAKFAST 11/23/17 Simvastatin 40 mg PO QHS 11/23/17 cholecalciferol (vitamin D3) 50,000 unit capsule 50,000 unit PO QWEEK 03/01/18 Quetiapine Fumarate [Seroquel] 100 mg PO QHS 08/13/18 metoprolol succinate ER 25 mg tablet,extended release 24 hr 25 mg PO DAILY 30 Days #30 tab 08/16/18 Acetaminophen [Tylenol Extra Strength] 500 mg PO Q6H PRN PRN #20 tablet 08/20/18 Ibuprofen [Motrin] 400 mg PO Q6H PRN PRN #20 tablet 08/20/18 The following prescriptions were given: Acetaminophen [Tylenol Extra Strength] 500 mg PO Q6H PRN PRN #20 tablet PRN Reason: Pain Ibuprofen [Motrin] 400 mg PO Q6H PRN PRN #20 tablet PRN Reason: Pain Primary Care Physician: Randy Buchanan MD [Primary Care Provider] - Test Results: Test results from this visit will be discussed in further detail at your follow-up appointment, if applicable. Please Follow Up With: Gerardo Aldana MD When: in 2 weeks, please call to make an appointment. 08/20/18 1100 <Electronically signed by Gerardo Aldana MD> Date Gerardo Aldana MD CC: Hieu Buchanan MD; Mitch Carl MD LIVER PROFILE Collected: 08/20/2018 Status: F Source: [place] 9:45 AM [facility] REPOSITORY TYPE CODE TESTS RESULT OUT OF RANGE REFERENCE UNITS LAB L501.1500 6.4-8.2 g/dL Normal T PROT 6.9 LAB L501.1800 3.2-5.0 g/dL Normal ALB 3.4 LAB L501.1950 2.2-4.2 g/dL Normal GLOB 3.5 LAB L501.4100 15-37 U/L Normal AST 17 LAB L501.4305 45-117 U/L Normal ALK P 56 LAB L501.4405 16-61 U/L Normal ALT 19 LAB L501.4600 0.20-1.00 mg/dL Normal T BILI 0.50 LAB L501.4700 0.00-0.30 mg/dL Normal D BILI 0.11 Performed By: #### L500.3400, L500.4100 #### [facility] [address] [place], [place], [id number] LIPID PROFILE Collected: 08/20/2018 Status: F Source: [place] 9:45 AM [facility] REPOSITORY TYPE CODE TESTS RESULT OUT OF RANGE REFERENCE UNITS LAB L501.4900 200 mg/dL Normal CHOL 138 Result Comment: <200 mg/dL Desirable 200-240 mg/dL Borderline >240 mg/dL High Risk LAB L501.5000 mg/dL Normal TRIG 147 Result Comment: The drugs N-Acetylcysteine and Metamizole may falsely depress this assay. Serum Triglycerides Reference Interval Normal <150 mg/dL Borderline high 150 - 199 mg/dL High 200 - 499 mg/dL Very High > or = 500 mg/dL LAB L501.6400 mg/dL Normal HDL 48 Result Comment: The drugs N-Acetylcysteine and Metamizole may falsely depress this assay. Reference Range HDL <40 mg/dL Low HDL Cholesterol HDL >or= 60 mg/dL High HDL Cholesterol LAB L501.6500 0-130 mg/dL Normal LDL 61 LAB L501.6600 5-40 mg/dL Normal VLDL 29 Performed By: #### L500.3400, L500.4100 #### [facility] [address] [place], [address] CARDIOLOGY VISIT Observed: 08/16/2018 Status: F Source: [place] REPORT 11:31 AM [facility] REPOSITORY [facility] [address] [place] [address] OFFICE VISIT Date of Service: 08/16/18 MR#: [id number] Acct: [id number] Name: TUCKER MARADIAGA Rep #: [id number] : 1935 Provider: Robyn Farrell Age/Sex: 83/M Location: [facility] Status: Signed HPI HPI Details: TUCKER MARADIAGA, is a 83 M who presents to the office today for a cardiovascular follow-up. He has a history of hypertension, TIA, coronary artery disease in which had bypass surgery. In 2009 he had an SANDERS to the LAD. He also had a PFO closure at that time. He also had his aortic valve replaced with a tissue valve prosthesis for aortic valve stenosis. He also has known peripheral arterial disease with a left carotid endarterectomy. Pt is in need of a circumcision, this is scheduled for thursday. He will also be having a cystoscopy d/t hematuria. Pt does have dementia. History is obtained by daughter. Dtr does not have any cardiac concerns. Intake Vital Signs08/16/18 Height 5 ft 4 in 08/16/18 Weight: 180 lb 08/16/18 Body Mass Index (BMI) 30.9 08/16/18 Respiratory Rate 18 08/16/18 Pulse Rate 92 08/16/18 Pulse Source Auscultation Intake Visit Reasons: 6 M FU [employer] Required: No Accompanied by: Daughter Is patient in pain?: No Allergies No Known Allergies Allergy (Verified 08/16/18 11:01) Medications Aspirin [Aspirin, Baby] 81 mg PO DAILY@0800 04/03/16 [History Confirmed 08/16/18] Donepezil HCl [Aricept] 10 mg PO QHS 04/03/16 [History Confirmed 08/16/18] Hydrocodone/Acetaminophen [Hydrocodone-Acetamin 5-325 mg] 1 ea PO BID 04/03/16 [History Confirmed 08/16/18] Meloxicam [Mobic] 15 mg PO DAILY 04/03/16 [History Confirmed 08/16/18] Omeprazole [Prilosec] 20 mg PO DAILY 04/03/16 [History Confirmed 08/16/18] Cyanocobalamin (Vitamin B-12) [Vitamin B-12] 1,000 mcg PO DAILY 11/23/17 [History Confirmed 08/16/18] Duloxetine Hcl [Cymbalta] 60 mg PO DAILY 11/23/17 [History Confirmed 08/16/18] Quetiapine Fumarate [Seroquel] 200 mg PO BREAKFAST 11/23/17 [History Confirmed 08/16/18] Simvastatin 40 mg PO QHS 11/23/17 [History Confirmed 08/16/18] cholecalciferol (vitamin D3) 50,000 unit capsule 50,000 unit PO QWEEK 03/01/18 [History Confirmed 08/16/18] Quetiapine Fumarate [Seroquel] 100 mg PO QHS 08/13/18 [History Confirmed 08/16/18] metoprolol succinate ER 25 mg tablet,extended release 24 hr PO 30 Days #30 tab 08/16/18 [History Confirmed 08/16/18] Ejection fraction %: 60 to 64 PFSH Medical History Hyperlipidemia (Chronic) Atherosclerotic heart disease of hopi coronary artery without angina pectoris (Chronic) Patent foramen ovale (Acute 02/2010) Congenital defect of septal closure (Chronic) Carotid bruit (Chronic) Premature ventricular contraction (Acute) 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) Severe sepsis (Acute) DEWAYNE (acute kidney injury) (Acute) CKD (chronic kidney disease), stage III (Chronic) Hypertension (Chronic) GERD (gastroesophageal reflux disease) (Chronic) Asthma (Acute) TIA (transient ischemic attack) (Acute) Alzheimer's dementia (Chronic) Dementia (Inactive) Surgical History Aortocoronary bypass status (Chronic 02/2010) H/O aortic valve replacement (Chronic) H/O bilateral hip replacements (Resolved) History of left-sided carotid endarterectomy (Resolved) Family History Father Heart disease Brother CAD (coronary artery disease) Myocardial infarction, Onset Age: 57 Hx of CABG Sister CVA (cerebral vascular accident) Sister CAD (coronary artery disease) Social History Smoking Status: Never smoker alcohol intake: never substance use type: does not use caffeine: No ROS Const Const: Negative for weakness, fatigue, fever(s) or headache(s) Eyes Eyes: Negative for blind spots, loss of peripheral vision or transient loss of vision ENT ENT: Negative for headache(s), dizziness, tinnitus or Nosebleed/epistaxis Cardio Chest Pain: No Palpitations: No Edema: None Muscle aches with walking: None Resp Respiratory: Negative for SOB with activity, SOB at rest, SOB orthopnea\SOB lying down or Cough GI GI: Negative nausea, vomiting, heartburn or vomiting blood/hematemesis : Positive for hematuria Musc Musc: Negative for muscle aches/ myalgia Neuro Neuro: Positive for memory loss and confusion; negative for weakness, headache(s), dizziness, near syncope, syncope, lightheadedness or orthostatic symptoms Ikng Hematologic/Lymphatic: Negative for easy bleeding Endo Endo: Negative for fatigue Cardiology Exam Const Appearance: no acute distress Nutritional Appearance: average body habitus Orientation: confused and other (angered easily) Head Head: normal to inspection and normocephalic Ears: hearing grossly impaired Nose: external nose normal Face and Sinus: face symmetric Mouth: oral mucosae normal Eyes Eyelids: eyelids normal Conjunctivae: conjunctivae normal Pupils: PERRL EOM: EOM intact bilaterally Neck Neck: normal visual inspection and full ROM Chest Chest inspection: normal inspection of the chest and symmetric chest movement Auscultation: Bilateral: Clear to Auscultation Cardio Palpation: normal PMI Rate: regular rate Rhythm: regular rhythm Heart sounds: S1 normal and S2 normal Murmur: Grade 2/6, harsh, mid systolic, LLSB, LVOT and sternal notch GI GI: normal to inspection, bowel sounds present, soft and no hepatosplenomegaly Neuro General: alert, awake and oriented x3 Skin Skin: no rashes or lesions noted Extremities Pulses: Normal: Right Radial Pulse, Left Radial Pulse Lower Extremity Edema: None: Bilateral Assessment AND Plan 1. Atherosclerosis of hopi coronary artery of hopi heart without angina pectoris I25.10 CABG x1 - SANDERS to LAD AND closure of PFO 02/14 Plan Stable, from a cardiac standpoint patient does not have any symptoms of angina. We recommend that they continue with current aggressive medical management and risk factor modification. 2. Essential hypertension I10 Plan Blood pressure is well controlled on current medications, we do not recommend any changes at this time. 3. Presence of prosthetic heart valve Z95.2 Plan Stable, patient will continue with antibiotic prophylaxis. He will continue to be monitored by history, exam and echocardiograms as deemed appropriate. 4. Hyperlipidemia, unspecified hyperlipidemia type E78.5 Plan Patient will continue with his moderate intensity statin. Plan Detail Other Medications New: Additional Comments Regards to patient's upcoming surgery do not feel that any additional testing needs to be done at this time. Thank you for allowing us to participate in the patients plan of care, if you have any questions please do not hesitate to call. This note was generated using a voice recognition system and there may be incorrect words, spelling or punctuation that were not noted when reviewing the office note prior to saving. Follow Up 1 Year (PFM) Coding Level of Care Code Off vis,est,level 3 Diagnoses Atherosclerosis of hopi coronary artery of hopi heart without angina pectoris I25.10 [place] vs. transplanted heart: hopi heart Essential hypertension I10 Hypertension type: essential hypertension Presence of prosthetic heart valve Z95.2 Hyperlipidemia, unspecified hyperlipidemia type E78.5 Hyperlipidemia type: unspecified Coding Level of Care Code Off vis,est,level 3 Diagnoses Atherosclerosis of hopi coronary artery of hopi heart without angina pectoris I25.10 [place] vs. transplanted heart: hopi heart Essential hypertension I10 Hypertension type: essential hypertension Presence of prosthetic heart valve Z95.2 Hyperlipidemia, unspecified hyperlipidemia type E78.5 Hyperlipidemia type: unspecified 08/16/18 1131 <Electronically signed by Robyn HORVATH> Date [facility] Signature: Date (if applicable) CC: Hieu Buchanan MD KIDNEY AND BLADDER Observed: 07/21/2018 Status: F Source: [place] 8:36 AM [facility] REPOSITORY [facility] Imaging Services [address] [place] [address] Kidney and Bladder MR#: [id number] Acct: [id number] Name: TUCKER MARADIAGA Rep #: [id number] : 1935 83 From: Kobi Grande MD PCP: Hieu Buchanan MD Status: REG CLI Study: Kidney and Bladder Date of Exam: 07/21/18 Exam# [id number] Ordering Dr: Gerardo Aldana MD STUDY: RENAL ULTRASOUND - COMPLETE REASON FOR EXAM: Male, 83 years old. Hematuria. TECHNIQUE: Ultrasound evaluation of the kidneys was performed with real-time and static bowden-scale imaging. COMPARISON: None. FINDINGS: RIGHT KIDNEY: 9.5 x 4.7 x 5.5 cm. Normal renal cortical thickness 1.1 cm. Normal echotexture. There is no mass, calculus or hydronephrosis. 2.8 x 2.0 x 2.5 cm simple cyst. LEFT KIDNEY: 10.6 x 4.7 x 5.5 cm. Normal cortical thickness 1.1 cm. Normal cortical echotexture. There is no mass, calculus or hydronephrosis. Left kidney, 3 cysts, measuring 3.8 cm, 2.4 cm, and 2.3 cm respectively. Simple cystic features. BLADDER: The urinary bladder appears normal in caliber, contour and wall thickness. Urinary bladder volume is 51 mL, only mildly distended. Along the left posterior lateral wall the urinary bladder there is a 1.4 x 1.3 x 0.8 cm heterogeneously hypoechoic focus intimately associated with the mucosa. This focus does not demonstrate internal flow on Doppler images. US/Kidney and Bladder IMPRESSION: Benign bilateral renal cysts, otherwise normal kidneys. Heterogeneously hypoechoic 14 x 13 x 8 mm focus appears to be adherent to the left posterior mucosa of the urinary bladder. In the setting of hematuria, differential considerations include debris/thrombus, and urothelial neoplasm. After resolution of the patient's hematuria, a follow-up ultrasound should be performed with a properly distended urinary bladder to assess for persistence of this finding. Thrombus or debris should clear. Persistence should prompt urologic consultation for exclusion of urothelial neoplasm. Electronically Signed: Kobi Christiane, at 15:31 EST Tel , Service support , CC: Hieu Buchanan MD; Gerardo Aldana MD Ophthalmic Technologist: Signed Observed: 06/15/2018 Status: F Source: SEVEN CULTURE, URINE 4:16 PM [facility] REPOSITORY Urine Culture Below infection level. ORGANISM 1: GNR lactose ux lead Lake Count <1000 ORGANISM 2: GPC Poss Enterococcus sp Lake Count 1000-10,000 Performed By: #### [id number] #### [facility] [address] [place] [address] [place], [address] CARDIOLOGY VISIT Observed: 03/01/2018 Status: F Source: DEWEY REPORT 11:42 AM [facility] REPOSITORY [facility] [address] [place] [address] OFFICE VISIT Date of Service: 03/01/18 MR#: [id number] Acct: [id number] Name: TUCKER MARADIAGA Rep #: [id number] : 1935 Provider: Mitch Carl MD Age/Sex: 83/M Location: [facility] [place] Status: Signed HPI HPI Details: TUCKER MARADIAGA, is a 83 M who presents to the office today for for outpatient cardiovascular follow-up of his history of underlying aortic valve stenosis status post AVR with 23 mm Michael-Young bioprosthetic aortic valve, CAD status post CABG with SANDERS to the LAD (2009), status post PFO closure, superimposed on hyperlipidemia and hypertension. He had been hospitalized for pneumonia. He had an extended care facility stay. He is now back home with his daughter. There are no concerns at the moment of ongoing unexplained fevers, chills, or night sweats. He has had no ongoing symptoms of angina pectoris. There is been no obvious CHF or pulmonary edema. There has been no near syncope or syncope. His lipid labs were recently performed. His total cholesterol was 134 with an LDL of 61 and an HDL of 51. His triglycerides were 112. Intake Vital Signs03/01/18 Height 5 ft 6 in 03/01/18 Weight: 173 lb 03/01/18 Body Mass Index (BMI) 27.9 03/01/18 Blood Pressure 114/62 03/01/18 Blood Pressure Location Lt brachial Intake Visit Reasons: 1 Y FU [employer] Required: No Accompanied by: daughter Is patient in pain?: No Allergies No Known Allergies Allergy (Verified 03/01/18 11:05) Medications Aspirin [Aspirin, Baby] 81 mg PO DAILY@0800 04/03/16 [History Confirmed 03/01/18] Donepezil HCl [Aricept] 10 mg PO QHS 04/03/16 [History Confirmed 03/01/18] Hydrocodone/Acetaminophen [Hydrocodone-Acetamin 5-325 mg] 1 ea PO BID PRN PRN 04/03/16 [History Confirmed 03/01/18] Lorazepam [Ativan] 0.5 mg PO DAILY PRN PRN 04/03/16 [History Confirmed 03/01/18] Meloxicam [Mobic] 15 mg PO DAILY 04/03/16 [History Confirmed 03/01/18] Metoprolol Tartrate [Lopressor (beta ximena)] 20 mg PO DAILY 04/03/16 [History Confirmed 03/01/18] Omeprazole [Prilosec] 20 mg PO DAILY 04/03/16 [History Confirmed 03/01/18] Cyanocobalamin (Vitamin B-12) [Vitamin B-12] 1,000 mcg PO DAILY 11/23/17 [History Confirmed 03/01/18] Duloxetine Hcl [Cymbalta] 60 mg PO DAILY 11/23/17 [History Confirmed 03/01/18] Quetiapine Fumarate [Seroquel] 200 mg PO BREAKFAST 11/23/17 [History Confirmed 03/01/18] Simvastatin 40 mg PO QHS 11/23/17 [History Confirmed 03/01/18] cholecalciferol (vitamin D3) 50,000 unit capsule 50,000 unit PO QWEEK 03/01/18 [History Confirmed 03/01/18] Ejection fraction %: 60 to 64 PFSH Medical History Hyperlipidemia (Chronic) Atherosclerotic heart disease of hopi coronary artery without angina pectoris (Chronic) Patent foramen ovale (Acute 02/2010) Congenital defect of septal closure (Chronic) Carotid bruit (Chronic) Premature ventricular contraction (Acute) 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) Severe sepsis (Acute) DEWAYNE (acute kidney injury) (Acute) CKD (chronic kidney disease), stage III (Chronic) Hypertension (Chronic) GERD (gastroesophageal reflux disease) (Chronic) Asthma (Acute) TIA (transient ischemic attack) (Acute) Alzheimer's dementia (Chronic) Dementia (Inactive) Surgical History Aortocoronary bypass status (Chronic 02/2010) H/O aortic valve replacement (Chronic) H/O bilateral hip replacements (Resolved) History of left-sided carotid endarterectomy (Resolved) Family History Father Heart disease Brother CAD (coronary artery disease) Myocardial infarction, Onset Age: 57 Hx of CABG Sister CVA (cerebral vascular accident) Sister CAD (coronary artery disease) Social History Smoking Status: Never smoker alcohol intake: never substance use type: does not use ROS Const Const: Negative for fatigue, weakness, night sweats, excessive sweating, frequent falls, headache(s) or daytime sleepiness Eyes Eyes: Negative for loss of peripheral vision, transient loss of vision, blind spots, double vision or blurry vision ENT ENT: Negative for headache(s), dizziness, balance problems, Nosebleed/epistaxis, tongue swelling or lip swelling Cardio Chest Pain: No Palpitations: No Edema: None Muscle aches with walking: None Resp Respiratory: Positive for SOB with activity (gets tired easily); negative for SOB at rest, SOB orthopnea\SOB lying down, Cough or paroxysmal nocturnal dyspnea GI GI: Negative nausea, vomiting, heartburn, black,tarry stools or bright, red blood in stools : Negative for hematuria Musc Musc: Negative for balance problems, muscle aches/ myalgia, muscle weakness or joint pain Skin Skin: Negative non-healing lesions, unusual bruising or rash Neuro Neuro: Negative for weakness, frequent falls, headache(s), double vision, dizziness, lightheadedness, orthostatic symptoms, blurry vision or lack of coordination King Hematologic/Lymphatic: Negative for easy bruising or easy bleeding Endo Endo: Negative for fatigue, excessive sweating, cold intolerance, heat intolerance, increased thirst/drinking or hair loss Psych Psych: Negative for anxiety or depression Allergy Allergy/Immunology: Negative for throat swelling, Negative for tongue swelling, Negative for hives, Negative for rash, Negative for lip swelling Cardiology Exam Const Appearance: no acute distress Nutritional Appearance: average body habitus Orientation: confused Head Head: normal to inspection and normocephalic Ears: hearing grossly impaired Nose: external nose normal Face and Sinus: face symmetric Mouth: oral mucosae normal Eyes Eyelids: eyelids normal Conjunctivae: conjunctivae normal Pupils: PERRL EOM: EOM intact bilaterally Neck Neck: normal visual inspection and full ROM Chest Chest inspection: normal inspection of the chest and symmetric chest movement Auscultation: Bilateral: Clear to Auscultation Cardio Palpation: normal PMI Rate: regular rate Rhythm: regular rhythm Heart sounds: S1 normal and S2 normal Murmur: Grade 2/6, harsh, mid systolic, LLSB, LVOT and sternal notch GI GI: normal to inspection, bowel sounds present, soft and no hepatosplenomegaly Neuro General: alert, awake and oriented x3 Skin Skin: no rashes or lesions noted Extremities Pulses: Normal: Right Radial Pulse, Left Radial Pulse Lower Extremity Edema: None: Bilateral Supplemental Info He did have a transthoracic echocardiogram performed on 03/27/2017. The results are as noted below. Interpretation Summary The study was technically difficult. Based upon the 2D echocardiographic images obtained there appears to be grossly normal left ventricular size, wall motion, and systolic function. The estimated ejection fraction is 60 %. The left atrium is mildly enlarged. There is moderate mitral annular calcification. Extension of the mitral annular calcification onto the posterior mitral valve leaflet. Mild diffuse mitral valve thickening. Mild (1+) eccentric mitral valve insufficiency. Trivial tricuspid valve insufficiency. The aortic valve is not well visualized, however, based upon the 2D echocardiographic images obtained there appears to be a stable bioprosthetic (#23 mm) Michael-Young aortic valve apparatus. Right ventricular systolic pressure estimated to be 29 mmHg. Transmitral diastolic flow velocities suggest diastolic dysfunction (pseudonormal pattern). He had a stress test performed on 01/23/2005. This was performed in the outpatient office at that time. He had a stress nuclear study. His myocardial perfusion was within normal limits with a gated LVEF of 65%. He had a diagnostic cardiac catheterization performed on 01/29/2010 at [facility]. The results are as noted below. FINAL IMPRESSION 1. Relatively normal left ventricular end diastolic pressure. 2. Relatively normal intrapulmonary and right heart pressures. 3. Oxygen saturations: Calculated QP/QS ratio of 1.1 considered nonhemodynamically significant. 4. Left ventricle: Because she has not been seen since June by Issa alonzo that she can work patient still appreciated thank you Mahogany. Preserved LV size, wall motion and systolic function. B. Estimated LVEF of 65%. 5. Left main: A. Proximal 10 to 25% smooth tapering stenosis with no decreased arterial wave form pressure damping or lack of reflux into the left coronary cusp. 6. LAD: A. Proximal 10 to 25% stenosis. B. Proximal (pre 1st diagonal branch) 75% eccentric appearing stenosis. C. Diagonal branch #1 (ostial/proxima]. 50% appearing stenosis. 7. LCX: A. Minimal luminal irregularities. 8. RCA: A. Large dominant vessel. B. Proximal catheter tip induced coronary artery vasospasm which appears to improve somewhat status post intracoron.maria isabel Nitroglycerin (100 mcg> C. Otherwise minimal luminal irregularities. 9. Aortic valve: A. Moderate aortic stenosis 10. Mitral valve annulus. A. Mitral annular calcification. B. Equivocal mitral valve prolapse. 11. Procedure related findings (with respect to the [place] catheter crossing the right atrium into the left atrium and confirmed, by left atria.I. 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 He had open heart surgery performed at [facility] on 02/27/2010. At that time he underwent aortic valve replacement with a 23 mm Michael-Young pericardial Ease bioprosthesis, a SANDERS to the LAD, and a suture closure of a patent foramen ovale. Assessment AND Plan 1. Presence of prosthetic heart valve Z95.2 Plan At the present time he appears to be doing well with no significant changes based on history or examination. He will continue medical management and follow- up with echocardiograms as deemed appropriate. 2. Atherosclerosis of hopi coronary artery of hopi heart without angina pectoris I25.10 CABG x1 - SANDERS to LAD AND closure of PFO 02/14 Plan He has no ongoing symptoms of classic angina pectoris. He will continue his current medical management and follow-up. 3. Postsurgical aortocoronary bypass status Z95.1 CABG x1 - SANDERS to LAD AND closure of PFO 02/14 Plan His CABG report is as noted above. He appears to be without acute symptoms. He will continue medical management and follow-up. 4. Congenital defect of septal closure Q21.9 Plan He does have a PFO closure as noted above. There is been no concern of any recurrent events. 5. Hyperlipidemia, unspecified hyperlipidemia type E78.5 Plan His lipid labs were recently reviewed. He will continue his risk factor modification and medical therapy with future laboratory follow-up. Orders Orders: 6. Essential hypertension I10 Plan His blood pressure appears to be under reasonably good control at this time. He will continue medical therapy and follow-up. Plan Detail Other Medications Discontinued: oseltamivir Discontinued Reason: Pt refuses the30 mg PO BID Val Ridley test albuterol sulfate Discontinued Reason: Pt no lo2.5 mg (3 mL) Inhalation Q6H Val kennedy taking Additional Comments He will be scheduled for an outpatient visit approximately 6 months unless needed sooner. Thank you for allowing me to participate in the care of your patient. Please don't hesitate to call if any issues arise. This note was generated using a voice recognition system and there may be incorrect words, spelling or punctuation that were not noted when reviewing the office note prior to saving. Follow Up 6 Months (PFM) Coding Level of Care Code Off vis,est,level 4 Diagnoses Presence of prosthetic heart valve Z95.2 Atherosclerosis of hopi coronary artery of hopi heart without angina pectoris I25.10 [place] vs. transplanted heart: hopi heart Postsurgical aortocoronary bypass status Z95.1 Congenital defect of septal closure Q21.9 Hyperlipidemia, unspecified hyperlipidemia type E78.5 Hyperlipidemia type: unspecified Essential hypertension I10 Hypertension type: essential hypertension Coding Level of Care Code Off vis,est,level 4 Diagnoses Presence of prosthetic heart valve Z95.2 Atherosclerosis of hopi coronary artery of hopi heart without angina pectoris I25.10 [place] vs. transplanted heart: hopi heart Postsurgical aortocoronary bypass status Z95.1 Congenital defect of septal closure Q21.9 Hyperlipidemia, unspecified hyperlipidemia type E78.5 Hyperlipidemia type: unspecified Essential hypertension I10 Hypertension type: essential hypertension 03/01/18 1142 <Electronically signed by Mitch Carl MD> Date Mitch Carl MD Cosigner Signature: Date (if applicable) CC: Hieu Buchanan MD LIVER PROFILE Collected: 02/27/2018 Status: F Source: DEWEY 7:05 [facility] REPOSITORY TYPE CODE TESTS RESULT OUT OF RANGE REFERENCE UNITS LAB L501.1500 6.4-8.2 g/dL Normal T PROT 7.0 LAB L501.1800 3.2-5.0 g/dL Normal ALB 3.6 LAB L501.1950 2.2-4.2 g/dL Normal GLOB 3.4 LAB L501.4100 15-37 U/L Normal AST 18 LAB L501.4305 45-117 U/L Normal ALK P 58 LAB L501.4405 16-61 U/L Normal ALT 22 LAB L501.4600 0.20-1.00 mg/dL Normal T BILI 0.50 LAB L501.4700 0.00-0.30 mg/dL Normal D BILI 0.09 Performed By: #### L500.3400, L500.4100 #### [facility] [address] [place], [address] LIPID PROFILE Collected: 02/27/2018 Status: F Source: DEWEY 7:05 AM [facility] REPOSITORY TYPE CODE TESTS RESULT OUT OF RANGE REFERENCE UNITS LAB L501.4900 200 mg/dL Normal CHOL 134 Result Comment: <200 mg/dL Desirable 200-240 mg/dL Borderline >240 mg/dL High Risk LAB L501.5000 mg/dL Normal TRIG 112 Result Comment: The drugs N-Acetylcysteine and Metamizole may falsely depress this assay. Serum Triglycerides Reference Interval Normal <150 mg/dL Borderline high 150 - 199 mg/dL High 200 - 499 mg/dL Very High > or = 500 mg/dL LAB L501.6400 mg/dL Normal HDL 51 Result Comment: The drugs N-Acetylcysteine and Metamizole may falsely depress this assay. Reference Range HDL <40 mg/dL Low HDL Cholesterol HDL >or= 60 mg/dL High HDL Cholesterol LAB L501.6500 0-130 mg/dL Normal LDL 61 LAB L501.6600 5-40 mg/dL Normal VLDL 22 Performed By: #### L500.3400, L500.4100 #### [facility] [address] [place], [address] DISCHARGE SUMMARY Observed: 11/27/2017 Status: F Source: SEVEN 3:14 PM [facility] REPOSITORY [facility] Medical Records Department [address] [facility] [place] [address] Discharge Summary 11/27/17 1509 MR#: [id number] Acct: [id number] Name: TUCKER MARADIAGA Rep #: [id number] : 1935 82 From: Samy Vega MD PCP: Hieu Buchanan MD Status: DIS IN Y [place] [facility] [id number] Discharge Date and Diagnosis Date of Admission: 11/23/17 Date of Discharge: 11/27/17 - Primary Discharge Diagnosis #1 acute viral bronchitis/influenza B. #2 severe sepsis. #3 acute kidney injury with above stage III chronic kidney disease. - Secondary Discharge Diagnosis Chronic Problems CKD (chronic kidney disease), stage III (Chronic) Dementia (Chronic) Hypertension (Chronic) GERD (gastroesophageal reflux disease) (Chronic) CAD (coronary artery disease) (Chronic) Hospital Course and Treatment Imaging Results: Clinical Impression(s) from Imaging Studies Chest X-Ray 11/23/17 11:55 IMPRESSION: Elevation of the right hemidiaphragm with increased linear markings at the right lung base suggestive of possible atelectasis. Electronically Signed: Elder Persaud MD at 13:01 EDT Tel [phone], Service support , Operations: None Procedures: None Summary of Care Provided: Patient seen and examined on the day of discharge and appeared to be stable to be discharged home. He remained stable, no significant complaints. Has vital signs remained stable, remained afebrile and remains on 2 L of oxygen. - Physical Exam General: Alert, disoriented at baseline, cooperative, No apparent distress. HEENT: Atraumatic, PERRLA, EOMI. Neck: Supple, No JVD, Negative Carotid Bruits, Trachea Midline, Thyroid Normal. Lungs: Diminished breath sounds bilateral, occasional rhonchi, No wheeze, No rales. Cardiovascular: Regular rate, Regular Rhythm, Normal S1, Normal S2, PMI Normal. Abdomen: Bowel Sounds Present, Soft, Non Tender, Non-Distended, No Hepato-splenomegaly. Extremities: No clubbing, No cyanosis, No edema Skin: No rashes, No breakdown Neurological: Neuro grossly intact Vital Signs are stable. Hospital course: The patient is a 82 year old M admitted because of fever, dry cough and shortness of breath as well as weakness and he was found to have severe sepsis secondary to acute viral bronchitis and influenza B as well as acute kidney injury on top of stage III chronic kidney disease. His chest x-ray showed no evidence of acute infiltrate, consolidation or effusion, showed elevation of the right hemidiaphragm. He was treated with IV fluids, bronchodilators and Tamiflu. On the fourth day of admission, he was started on Augmentin for bronchitis although it is viral bronchitis because his daughter insisted that he started on antibiotics claiming that every time he has bronchitis, his PCP put him on antibiotics. His lactic acid on admission was 2.8 and with IV fluid therapy, it came down to 1.1. His leukocytosis returned back to normal. He was found to have acute on chronic kidney failure and his creatinine came down from 1.75 from admission down to 1.30 which is at baseline. Blood culture showed no growth in 48 hours. Urine culture showed no growth. Patient's symptoms improved and he remained on 2 L of oxygen. Patient discharged to [facility] in a stable medical condition, discharged on Augmentin to complete 7 days of treatment, discharged on Tamiflu to complete 5 days of treatment, discharged on albuterol every 6 hours, continue with on his chronic home medication without any changes, recommended follow-up with PCP in 2 weeks. Home Medications: Medications to take at Discharge Aspirin [Aspirin, Baby] 81 mg PO DAILY@0800 04/03/16 Donepezil HCl [Aricept] 10 mg PO QHS 04/03/16 Ergocalciferol [Vitamin D] 50,000 unit PO GARIBAY 04/03/16 Hydrocodone/Acetaminophen [Hydrocodone-Acetamin 5-325 mg] 1 each PO BID PRN PRN 04/03/16 Lorazepam [Ativan] 0.5 mg PO DAILY PRN PRN 04/03/16 Meloxicam [Mobic] 15 mg PO DAILY 04/03/16 Metoprolol Tartrate [Lopressor (beta ximena)] 20 mg PO DAILY 04/03/16 Omeprazole [Prilosec] 20 mg PO DAILY 04/03/16 Quetiapine Fumarate [Seroquel XR] 100 mg PO QHS 04/03/16 Cyanocobalamin (Vitamin B-12) [Vitamin B-12] 1,000 mcg PO DAILY 11/23/17 Duloxetine Hcl [Cymbalta] 60 mg PO DAILY 11/23/17 Ensure Enlive 120 ml PO 4X/DAY 11/23/17 Quetiapine Fumarate [Seroquel] 200 mg PO BREAKFAST 11/23/17 Simvastatin 40 mg PO QHS 11/23/17 Albuterol Aerosols [Ventolin Aerosols] 2.5 mg INHALATION Q6H #1 vial.neb. 11/26/17 Oseltamivir Phosphate [Tamiflu] 30 mg PO BID #4 cap 11/26/17 Amox/Clavulanate Tablet [Augmentin Tablet] 875 mg PO BIDCM #12 tab 11/27/17 Following Prescrptions Were Given to Patient: Amox/Clavulanate Tablet [Augmentin Tablet] 875 mg PO BIDCM #12 tab Oseltamivir Phosphate [Tamiflu] 30 mg PO BID #4 cap Albuterol Aerosols [Ventolin Aerosols] 2.5 mg INHALATION Q6H #1 vial.neb. Primary Care Physician: Randy Buchanan MD [Primary Care Provider] - Please follow up with your Primary Care Physician in: 2 weeks. Disposition: [facility] facility Minutes spent on discharge:: 32 Patient Condition:: Stable Medical Necessity - Tobacco Use Smoking Status: Never smoker Meaningful Use Info Meaningful Use Diagnoses (Choose all that apply): None applicable Code Visit Inpatient E AND M: 29350 Disch Hosp 11/27/17 1514 <Electronically signed by Samy Vega MD> Date Samy Vega MD Cosigner Signature (if applicable): Date CC: Hieu Buchanan MD; Samy Vega Signed TRANSFER TO [facility] Observed: 11/27/2017 Status: F Source: [facility] 9:31 AM [facility] REPOSITORY [facility] Medical Records Department [address] [place] [address] Transfer to [facility] MR#: [id number] Acct: [id number] Name: TUCKER MARADIAGA Rep #: [id number] : 1935 82 From: Samy Vega MD PCP: Hieu Buchanan MD Status: ADM IN TUCKER MARADIAGA (Patient) (Health Ins. Claim No.) (Day of Discharge to Facility) Certification of patient admission REQUIRED AT TIME OF ADMISSION. I CERTIFY THAT POST-HOSPITAL F SERVICES ARE REQUIRED TO BE GIVEN ON AN IN-PATIENT BASIS BECAUSE OF THE ABOVE NAMED PATIENT'S NEED FOR [facility] CARE ON A CONTINUING BASIS FOR THE CONDITION(S) FOR WHICH HE/SHE WAS RECEIVING IN-PATIENT HOSPITAL SERVICES PRIOR TO HIS/HER TRANSFER TO THE ECF. 11/27/17930 <Electronically signed by Samy Vega MD> Date Samy Vega MD - Diet 11/23/17 13:54 Diet: Regular Diet Food consistency:: Regular Liquid Consistency:: Regular/Thin - Routine Orders/Code Status O2 Frequency: Continuous Keep PO Greater than or Equal to (%): 92 Code Status: DNRCC-A - Wound(s) bilat legs Wound Type: Abrasion - Suggestions for Active Care Change Position every (hours): 3 Hours to sit in a chair: 2 Times a day to sit in chair: 3 - Therapies Weight Bearing: Weight bearing as tolerated Physical Therapy: Eval and Treat Occupational Therapy: Eval and Treat - Allergies/Procedures Done in Hospital Allergies/Adverse Reactions: Allergies No Known Allergies Allergy (Verified 04/03/16 14:19) - Type of Care/Length of Stay Estimated LOS: Convalescent Care Less Than 30 days Type of Care Needed: Skilled Rehab Potential: Fair Prognosis: Fair - Additional Orders/Day of Discharge H AND P will serve as current which was dated: 11/23/17 Day of Discharge: 11/26/17 - Dietary and Speech Recommendations Dietitian Recommendations/Changes: Continue regular diet AND ensure enlive on medpass as PO established. Cardiac diet as indicated. Will continue Ensure Pudding with Lunch and Dinner for additional nutrition if consumed. Reweigh as able. - Follow Up Care Primary Care Physician: Randy Buchanan MD [Primary Care Provider] - Please follow up with your Primary Care Physician in: 2 weeks. 11/27/17930 <Electronically signed by Samy Vega MD> Date Samy Vega MD CC: Hieu Buchanan MD Signed 12 LEAD ELECTROCARDIOGRAM Observed: 11/26/2017 Status: F Source: SEVEN 2:34 PM [facility] REPOSITORY [facility] Cardiovascular Services [address] [place] [address] 12 Lead EKG 11/23/17 1205 MR#: [id number] Acct: [id number] Name: TUCKER MARADIAGA Rep #: [id number] : 1935 82 From: Arnold Adam MD Attending Dr: Samy Vega Status: ADM IN Ordering Dr: Ortega Hardin MD Date: 11/23/17 [place] [facility] Sex: M C Admitted: 11/23/17 Test Reason : Blood Pressure : / mmHG Vent. Rate : 094 BPM Atrial Rate : 094 BPM P-R Int : 136 ms QRS Dur : 098 ms QT Int : 356 ms P-R-T Axes : 055 007 063 degrees QTc Int : 445 ms Normal sinus rhythm Nonspecific ST abnormality Abnormal ECG Confirmed by ARNOLD ADAM ([id number]), international editorial producer ALEKSANDAR MCKOY ([id number]) on 11/26/2017 2:33:51 PM Referred By: JUAQUIN Confirmed By:ARNOLD ADAM 11/26/17 1433 Date Arnold Adam MD CC: Hieu Buchanan MD; Ortega Hardin MD Signed TRANSFER TO EXTENDED Observed: 11/26/2017 Status: F Source: [facility] 10:02 AM [facility] REPOSITORY [facility] Medical Records Department [address] [place] [address] Transfer to Extended Care MR#: [id number] Acct: [id number] Name: TUCKER MARADIAGA Rep #: [id number] : 1935 82 From: Samy Vega MD PCP: Hieu Buchanan MD Status: ADM IN TUCKER MARADIAGA (Patient) (Health Ins. Claim No.) (Day of Discharge to Facility) Certification of patient admission REQUIRED AT TIME OF ADMISSION. I CERTIFY THAT POST-HOSPITAL ECF SERVICES ARE REQUIRED TO BE GIVEN ON AN IN-PATIENT BASIS BECAUSE OF THE ABOVE NAMED PATIENT'S NEED FOR [facility] CARE ON A CONTINUING BASIS FOR THE CONDITION(S) FOR WHICH HE/SHE WAS RECEIVING IN-PATIENT HOSPITAL SERVICES PRIOR TO HIS/HER TRANSFER TO THE [facility]. 11/26/17 1002 <Electronically signed by Samy Vega MD> Date Samy Vega MD - Diet 11/23/17 13:54 Diet: Regular Diet Food consistency:: Regular Liquid Consistency:: Regular/Thin - Routine Orders/Code Status O2 Liters per Minute: 1-2 O2 Frequency: Continuous Keep PO Greater than or Equal to (%): 92 Code Status: DNRCC-A - Wound(s) bilat legs Wound Type: Abrasion - Suggestions for Active Care Change Position every (hours): 3 Hours to sit in a chair: 2 Times a day to sit in chair: 3 - Therapies Weight Bearing: Weight bearing as tolerated Physical Therapy: Eval and Treat Occupational Therapy: Eval and Treat - Allergies/Procedures Done in Hospital Allergies/Adverse Reactions: Allergies No Known Allergies Allergy (Verified 04/03/16 14:19) - Type of Care/Length of Stay Estimated LOS: Convalescent Care Less Than 30 days Type of Care Needed: Skilled Rehab Potential: Fair Prognosis: Fair - Additional Orders/Day of Discharge H AND P will serve as current which was dated: 11/23/17 Day of Discharge: 11/26/17 - Dietary and Speech Recommendations Dietitian Recommendations/Changes: Continue regular diet AND ensure enlive on medpass as PO established. Cardiac diet as indicated. Reweigh as able. - Follow Up Care Primary Care Physician: Randy Buchanan MD [Primary Care Provider] - Please follow up with your Primary Care Physician in: 2 weeks. 11/26/17 1002 <Electronically signed by Samy Vega MD> Date Samy Vega MD CC: Hieu Buchanan MD Signed CBC W/DIFF, AUTOMATED Collected: 11/25/2017 Status: F Source: SEVEN 5:05 AM [facility] REPOSITORY TYPE CODE TESTS RESULT OUT OF RANGE REFERENCE UNITS LAB L100.1000 4.4-11.0 K/mm3 Normal WBC 9.0 LAB L100.1200 4.6-6.2 M/mm3 Low RBC 3.81 LAB L100.1300 13.0-16.5 g/dl Low HGB 11.2 LAB L100.1400 40-54 % Low HCT 33.4 LAB L100.1500 80-94 fL Normal MCV 87.7 LAB L100.1600 27.0-32.0 pg Normal MCH 29.4 LAB L100.1700 32-36 g/gl Normal MCHC 33.5 LAB L100.1810 11.6-14.6 % High RDW CV 14.8 LAB L100.1820 35.1-43.9 fl High RDW SD 46.5 LAB L100.1900 150-450 K/mm3 Normal PLT 182 LAB L100.2000 6.2-12.0 fl Normal MPV 9.4 LAB L100.2100 47-70 % High NEUT% 77.8 LAB L100.2200 19-41 % Low LY% 14.4 LAB L100.2300 0-10 % Normal MONO% 6.8 LAB L100.2400 0-5 % Normal EO% 0.6 LAB L100.2500 0-1 % Normal BASO% 0.1 LAB L100.2550 0.0-0.9 % Normal IM GRAN % 0.300 Result Comment: IG% - Immature Granulocytes (promyelocytes, myelocytes and metamyelocytes) > 1% indicates that a LEFT SHIFT is Present. LAB L100.2620 2.0-7.7 X10 3/uL Normal Absolute Neut 7.0 LAB L100.2720 0.83-4.51 X10 3/ul Normal Absolute Lymph 1.29 Performed By: #### L100.0100 #### [facility] [place], [place], [id number] CBC W/DIFF, AUTOMATED Collected: 11/24/2017 Status: F Source: [facility] 5:35 AM [facility] REPOSITORY TYPE CODE TESTS RESULT OUT OF RANGE REFERENCE UNITS LAB L100.1000 4.4-11.0 K/mm3 High WBC 12.5 LAB L100.1200 4.6-6.2 M/mm3 Low RBC 3.79 LAB L100.1300 13.0-16.5 g/dl Low HGB 11.1 LAB L100.1400 40-54 % Low HCT 33.9 LAB L100.1500 80-94 fL Normal MCV 89.4 LAB L100.1600 27.0-32.0 pg Normal MCH 29.3 LAB L100.1700 32-36 g/gl Normal MCHC 32.7 LAB L100.1810 11.6-14.6 % High RDW CV 15.3 LAB L100.1820 35.1-43.9 fl High RDW SD 49.2 LAB L100.1900 150-450 K/mm3 Normal PLT 184 LAB L100.2000 6.2-12.0 fl Normal MPV 9.4 LAB L100.2100 47-70 % High NEUT% 77.5 LAB L100.2200 19-41 % Low LY% 12.2 LAB L100.2300 0-10 % Normal MONO% 9.9 LAB L100.2400 0-5 % Normal EO% 0.1 LAB L100.2500 0-1 % Normal BASO% 0.1 LAB L100.2550 0.0-0.9 % Normal IM GRAN % 0.200 Result Comment: IG% - Immature Granulocytes (promyelocytes, myelocytes and metamyelocytes) > 1% indicates that a LEFT SHIFT is Present. LAB L100.2620 2.0-7.7 X10 3/uL High Absolute Neut 9.7 LAB L100.2720 0.83-4.51 X10 3/ul Normal Absolute Lymph 1.52 Performed By: #### L100.0100 #### [facility] [address] [place], [address] BASIC METABOLIC Collected: 11/24/2017 Status: F Source: SEVEN PROFILE ([facility]) 5:35 AM [facility] REPOSITORY TYPE CODE TESTS RESULT OUT OF RANGE REFERENCE UNITS LAB L501.0100 74-106 mg/dL Normal GLU 88 Result Comment: Please note revised GLUCOSE reference range effective 2017. LAB L501.1000 7-18 mg/dL High BUN 30 LAB L501.1100 0.70-1.30 mg/dL Normal CREAT,SERUM 1.30 Result Comment: The validity of the calculated GFR AND GFRAA in patients over 70 years has not been determined. Clinical correlation is essential. LAB L501.1110 >60 mL/min Low EST GFR 56 Result Comment: Non- GFR Calc LAB L501.1115 >60 mL/min Normal EST GFR - AA 68 Result Comment: GFR Calc LAB L501.1255 ml/min Normal Estimated CRCL 39.53 LAB L501.1300 10-20 RATIO High BUN/CRE 23.1 LAB L501.2200 8.5-10 mg/dL Low .1 CA 8.4 LAB L501.5300 136-14 mmol/L Normal 5 NA 143 LAB L501.5600 3.5-5. mmol/L Normal 1 K 3.8 LAB L501.5900 98-107 mmol/L High CL 109 LAB L501.6100 21.0-3 mmol/L Normal 2.0 CO2 27.0 LAB L501.6200 5-15 Normal GAP 7 Performed By: #### L500.2500 #### [facility] [address] [place], [address] Observed: 11/23/2017 Status: F Source: [facility] CULTURE, URINE 8:20 PM [facility] REPOSITORY Comments: urine collected by Alberta HONG by straight cath Urine Culture Culture exhibits no growth. Performed By: #### M100.0650 #### [facility] [address] [place], [address] EMERGENCY DEPARTMENT Observed: 11/23/2017 Status: F Source: [facility] SUMMARY 6:52 PM [facility] REPOSITORY [facility] Medical Records Department [address] [place] [address] Emergency Department Summary 11/23/17 1326 MR#: [id number] Acct: [id number] Name: TUCKER MARADIAGA Rep #: [id number] : 1935 82 From: Ortega Hardin MD PCP: Hieu Buchanan MD Status: ADM IN - ER Visit Summary Date of Service: 11/23/17 Chief Complaint: Cough History of Present Illness: The patient is a [address] Reynolds. Patient has a history of dementia and is a poor informant. reports he has a cough began 2 days ago. He has had a fever to 101.3 . He has had shortness of breath and generalized weakness. She reports that she was unable to even get him to stand today. No vomiting or diarrhea. Physical Examination: Vitals: Stable. Afebrile. General: Well-nourished and well-developed. Head: Normocephalic atraumatic. Neck: Supple, no lymphadenopathy. No JVD. Nontender. Cardiovascular: Regular rate and rhythm. No murmurs. Respiratory: No respiratory distress. Rhonchi on the right. Abdominal: Soft, nontender, nondistended, normal bowel sounds. No guarding, rebound, or peritoneal signs. Back: Nontender. Extremities: Nontender, 2+ pitting edema of his lower extremities bilaterally. Skin: Normal color, no rash. Neurologic: Alert and oriented 1. Cranial nerves II through XII are intact. Normal strength and sensation. Psych: Normal affect. Test Results: EKG is sinus at 94[address] nonspecific [address] changes. Influenza is negative. Chem-7 is more for BUN 27, creatinine 1.75, glucose 111. Lactic acid is 2.8. CBC is marked for white count 11.7, 7 neutrophils 88, monocytes of 6. Chest x-ray is a very poor inspiration with an elevated right hemidiaphragm and atelectasis. Emergency Department Course and Treatment: Patient was given a liter bolus of normal saline. He is resting comfortably. Treatment Plan: The patient was discussed with Dr. Mai. He will be admitted to the hospital for further evaluation and treatment. Disposition: Admitted in serious condition. Impression: 1. Severe sepsis. 2. URI. 3. Lactic acidosis. 4. Generalized weakness. This note was generated with Reality[employer] dictation software. It may contain incorrect words, spelling, and punctuation that were not noted in review of the chart prior to signing ED Disposition - Plan for ED Patient: Chief Complaint: Shortness of Breath Referrals: Randy Buchanan MD [Primary Care Provider] - What to do if you have Problems For any increased pain, shortness of breath, bleeding, nausea or vomiting, chest pain, or any unexpected problems, contact your Primary Care Provider. Call [facility] ([phone]) or report to the closest Emergency Room. Call 911 if necessary. 11/23/17 1852 <Electronically signed by Ortega Hardin MD> Date Ortega Hardin MD Cosigner Signature (If Indicated): Date CC: Hieu Buchanan MD LACTIC ACID Collected: 11/23/2017 Status: F Source: [facility] 4:45 PM [facility] REPOSITORY TYPE CODE TESTS RESULT OUT OF RANGE REFERENCE UNITS LAB L503.6005 0.4-2.0 mmol/L Normal LACTIC ACID 1.1 Performed By: #### L503.6005 #### [facility] [address] [facility] [place], [address] HISTORY AND PHYSICAL Observed: 11/23/2017 Status: F Source: [facility] EXAM 2:11 PM [facility] REPOSITORY [facility] Medical Records Department [address] [place] [address] History and Physical 11/23/17 1359 MR#: [id number] Acct: [id number] Name: TUCKER MARADIAGA Rep #: [id number] : 1935 82 From: Parth Mai DO PCP: Hieu Buchanan MD Status: REG ER Y Location: ED Problem List (1) Severe sepsis Status: Acute (2) DEWAYNE (acute kidney injury) Status: Acute (3) CKD (chronic kidney disease), stage III Status: Chronic (4) Dementia Status: Chronic Qualifiers: Dementia type: Alzheimer's disease Alzheimer's disease onset: unspecified onset (5) Hypertension Status: Chronic (6) GERD (gastroesophageal reflux disease) Status: Chronic Qualifiers: Esophagitis presence: esophagitis presence not specified Qualified Code(s): K21.9 - Gastro-esophageal reflux disease without esophagitis (7) CAD (coronary artery disease) Status: Chronic Qualifiers: Coronary Disease-Associated Artery/Lesion type: bypass graft [place] vs. transplanted heart: [place] heart Associated angina: without angina Qualified Code(s): I25.810 - Atherosclerosis of coronary artery bypass graft(s) without angina pectoris History of Present Illness Date of Admission: 11/23/17 Chief Complaint: weakness The patient is a 82 year old M who has been coughing since Thursday. Patient's daughter lives with him and has been sick herself since the preceding . She states that she has been checking his temperature which he has been afebrile over the weekend. Patient got up today and then try to get up from breakfast patient was just very weak. She felt the patient was burning up and had a temperature of greater than 101 Fahrenheit. Given that he was weak she decided to call EMS and brought the patient to the hospital. In the emergency room, patient had a chest x-ray showed no acute infiltrates. And the patient did have a lactic acid of 2.8. Patient is to receive IV fluids. Patient also be receiving a urinalysis and urine culture. Patient did have 2 blood cultures performed. Patient is demented and a poor historian so he is unable to provide any history. Patient's daughter states that he was coughing that was nonproductive over the weekend but no other obvious source of infection that she can determine. States that she was put on antibiotics for a presumed sinus infection from her illness from last week. [] Past Medical History Past Medical History (Chronic Problems): Chronic Problems CKD (chronic kidney disease), stage III (Chronic) Dementia (Chronic) Hypertension (Chronic) GERD (gastroesophageal reflux disease) (Chronic) CAD (coronary artery disease) (Chronic) Allergies No Known Allergies Allergy (Verified 04/03/16 14:19) Home Medications: Ambulatory Orders Medication Instructions Recorded Aspirin [Aspirin, Baby] 81 mg PO DAILY@0800 04/03/16 Citalopram [Celexa] 20 mg PO DAILY 04/03/16 Surgical History: coronary bypass surgery - 1, total hip arthroplasty - Bilateral Lives: With Family Smoking Status: Never smoker - *Family History Maternal History Items: - - Unable to obtain as patient is demented Review of Systems Constitutional: Reports: Fever, Weakness Respiratory: Reports: Cough Unable to obtain accurate/complete ROS d/t: Unable to obtain as the patient is confused VTE Information - Inpt Only VTE Present on Admission: No VTE Pharm Prophylaxis ordered?: Yes Patient Problems: Active and Suspected Problems Severe sepsis (Acute) DEWAYNE (acute kidney injury) (Acute) - Physical Exam General: Alert, Cooperative, No apparent distress HEENT: Atraumatic, Normocephalic Oral: Moist Mucosa, No Gingival or Mucosal Lesions/ Ulcerations, - - edentulous Neck: No Nodes, Thyroid Normal Size and Texture Lungs: Clear to auscultation, No rhonchi, No wheeze, Diminished Cardiovascular: Regular rate, Regular Rhythm, Normal S1, Normal S2, No murmurs Abdomen: Bowel Sounds Present, Soft, Non Tender, Non-Distended, No Hepato-splenomegaly Extremities: No edema, No Calf Tenderness Skin: No rashes, No breakdown Musculoskeletal: No Tenderness to Palpation of Joints or Extremities, No Muscle Wasting Neurological: Neuro grossly intact, - - no clonus Psych/Mental Status: - - confused Vital Signs Temp Pulse Resp BP Pulse Ox 37.4 C H 102 H 28 H 121/75 H 94 11/23/17 12:57 11/23/17 13:50 11/23/17 13:50 11/23/17 13:50 11/23/17 13:50 Oxygen Flow Rate (L/min) 5 Oxygen Delivery Method Nasal Cannula Weight: 78.925 kg Body Mass Index (BMI) 28.9 Microbiology Past 72 Hours 11/23/17 12:45 Influenza Types A,B Direct FA (GEETA) - Final Mucosa - Nose Laboratory Tests Past 24 Hrs EKG reviewed and showed normal sinus rhythm with an incomplete right bundle branch block. No previous EKG was available to be compared to. X-ray personally reviewed and showed points to her efforts but no obvious infiltrate nor edema. Assessment/Plan Active and Suspected Problems Severe sepsis (Acute) DEWAYNE (acute kidney injury) (Acute) 1. Severe sepsis * Patient meeting criteria based on respiratory rates as well as tachycardia. Additionally patient had a lactic acid of 2.8 * I advised the emergency room physician to get the patient IV fluids even though there is no clear obvious source of infection at this time. Patient will have a urine studies as well to evaluate for the being potential etiology. My concern is that this may be more of a viral etiology. Patient's rapid flu is negative. Respiratory viral panel is currently pending. * Hold off on any antibiotics at this time unless clear source of infection has been delayed or if the patient's condition changes for the worse. 2. Presumed acute kidney injury * Creatinine is 1.75 from his baseline of 1.4. * IV fluids * Hold potentiating medications such as meloxicam. 3. Dementia, Alzheimer type * Complicating care * Continue with his Aricept as well as Seroquel 4. DVT prophylaxis with low migrate heparin Advanced care planning, spent an additional 15 minutes outside of the history and physical discussing advanced care planning with the patient's daughter, who is the patient's power of trademark attorney. Discussed CPR, intubation and PEG tube and tube feeds. She states, at this time, patient is DNR Comfort Care arrest, no intubation and no PEG tubes. Code Visit Inpatient E AND M: 86092 Init Hosp L3 Procedures: 70902 Advncd Care Plan 30 Min 11/23/17 1411 <Electronically signed by Parth Mai DO> Date Parth Mai DO Cosigner Signature: Date (if applicable) CC: Hieu Buchanan MD; Parth Mai DO Signed Observed: 11/23/2017 Status: C Source: SEVEN RESPIRATORY PANEL 1:30 PM [facility] MOLECULAR REPOSITORY Has pt arrived? Y RESULTS CALLED TO Marni DELGADO 11/24/17 0752 Heike Bailey. REPORT READ BACK BY JULIETA. Copy of report sent to Infection Control Printer [id number] 11/24/17 0752 RP PANEL ADENOVIRUS Not Detected HUMAN METAPHNEUMO Not Detected INFLUENZA A Not Detected INFLUENZA A (SUBTYPE H1) Not Detected INFLUENZA A (SUBTYPE H3) Not Detected INFLUENZA B Positive for INFLUENZA B by NAAT technology PARAINFLUENZA 1 Not Detected PARAINFLUENZA 2 Not Detected PARAINFLUENZA 3 Not Detected PARAINFLUENZA 4 Not Detected RHINOVIRUS Not Detected RSV A Not Detected RSV B Not Detected NAAT METHOD Testing was performed using nucleic acid amplification ORGANISM 1: INFLUENZAE B Performed By: #### M100.638 #### [facility] [address] [facility]. [place], [place], [address] Observed: 11/23/2017 Status: F Source: SEVEN INFLUENZA A+B (RAPID 12:45 PM [facility] CECILIO) REPOSITORY Order Date: 11/23/17 Has pt arrived? Y FLU A/B Rapid Negative test results should be confirmed by culture. Order Rapid Viral Culture for Influenzae A+B ([id number]) if clinically indicated. Influenza Ag, Direct Presumptive NEGATIVE for Influenza A/B Antigen (See Note) Performed By: #### M101.0101 #### [facility]. [place], [place], [address] Observed: 11/23/2017 Status: F Source: SEVEN CULTURE, BLOOD (WB) 12:40 PM [facility] REPOSITORY BC No growth in 5 days. Performed By: #### M200.1000 #### [facility] [address] [place] [address]. [place], [place], [address] CHEST PA AND LATERAL Observed: 11/23/2017 Status: F Source: SEVEN 11:56 AM [facility] REPOSITORY [facility] Imaging Services [address] [place] [address] Chest PA and Lateral MR#: [id number] Acct: [id number] Name: TUCKER MARADIAGA Lulu Rep #: [id number] : 1935 M 82 From: Elder Persaud MD PCP: Hieu Buchanan MD Status: REG ER Study: Chest PA and Lateral Date of Exam: 11/23/17 Exam# [id number] Ordering Dr: Ortega Hardin MD STUDY: X-RAY CHEST REASON FOR EXAM: Male, 82 years old. Cough shortness of breath and chest congestion. TECHNIQUE: AP and lateral views of the chest. COMPARISON: Comparison is made with prior study dated April 03, 2016. FINDINGS: EKG electrodes are seen. Elevation of the right hemidiaphragm. Mild increased linear markings at the right lung base suggestive of right basilar atelectasis. There is no demonstrated pleural abnormality. Sternal cerclage wires and vascular clips are present from a prior sternotomy and coronary artery bypass graft procedure (CABG). Normal mediastinum and hrenesto. Normal visualized pulmonary arteries. There is atherosclerotic calcification of the aortic arch with tortuosity. There are diffuse degenerative changes of the visualized thoracic spine. Normal visualized ribs, clavicles, and shoulders. There is no demonstrated abnormality of the visualized soft tissue structures of the upper abdomen. RAD/Chest PA and Lateral IMPRESSION: Elevation of the right hemidiaphragm with increased linear markings at the right lung base suggestive of possible atelectasis. Electronically Signed: Elder Persaud MD at 13:01 EDT Tel [phone], Service support , CC: Hieu Buchanan MD; Ortega Hardin MD Ophthalmic Technologist: Signed CBC W/DIFF, AUTOMATED Collected: 11/23/2017 Status: F Source: SEVEN 11:28 AM [facility] REPOSITORY TYPE CODE TESTS RESULT OUT OF RANGE REFERENCE UNITS LAB L100.1000 4.4-11.0 K/mm3 High WBC 11.7 LAB L100.1200 4.6-6.2 M/mm3 Low RBC 4.54 LAB L100.1300 13.0-16.5 g/dl Normal HGB 13.4 LAB L100.1400 40-54 % Normal HCT 40.1 LAB L100.1500 80-94 fL Normal MCV 88.3 LAB L100.1600 27.0-32.0 pg Normal MCH 29.5 LAB L100.1700 32-36 g/gl Normal MCHC 33.4 LAB L100.1810 11.6-14.6 % High RDW CV 15.1 LAB L100.1820 35.1-43.9 fl High RDW SD 49.3 LAB L100.1900 150-450 K/mm3 Normal PLT 232 LAB L100.2000 6.2-12.0 fl Normal MPV 9.4 LAB L100.2100 47-70 % High NEUT% 87.8 LAB L100.2200 19-41 % Low LY% 6.3 LAB L100.2300 0-10 % Normal MONO% 5.4 LAB L100.2400 0-5 % Normal EO% 0.1 LAB L100.2500 0-1 % Normal BASO% 0.1 LAB L100.2550 0.0-0.9 % Normal IM GRAN % 0.300 Result Comment: IG% - Immature Granulocytes (promyelocytes, myelocytes and metamyelocytes) > 1% indicates that a LEFT SHIFT is Present. LAB L100.2620 2.0-7.7 X10 3/uL High Absolute Neut 10.2 LAB L100.2720 0.83-4.51 X10 3/ul Low Absolute Lymph 0.73 Performed By: #### L100.0100 #### [facility] [address] [place], [place], [address] BASIC METABOLIC Collected: 11/23/2017 Status: F Source: [place] PROFILE (BMP) 11:28 AM [facility] REPOSITORY TYPE CODE TESTS RESULT OUT OF RANGE REFERENCE UNITS LAB L501.0100 74-106 mg/dL High GLU 111 Result Comment: Fasting Glucose result from 100 to 125 mg/dL suggests IMPAIRED HOMEOSTASIS per A.D.A. criteria. Please note revised GLUCOSE reference range effective 2017. LAB L501.1000 7-18 mg/dL High BUN 27 LAB L501.1100 0.70-1.30 mg/dL High CREAT,SERUM 1.75 Result Comment: The validity of the calculated GFR AND GFRAA in patients over 70 years has not been determined. Clinical correlation is essential. LAB L501.1110 >60 mL/min Low EST GFR 40 Result Comment: Non- GFR Calc LAB L501.1115 >60 mL/min Low EST GFR - AA 48 Result Comment: GFR Calc LAB L501.1255 ml/min Normal Estimated CRCL 28.31 LAB L501.1300 10-20 RATIO Normal BUN/CRE 15.4 LAB L501.2200 8.5-10 mg/dL Normal .1 CA 9.1 LAB L501.5300 136-14 mmol/L Normal 5 NA 138 LAB L501.5600 3.5-5. mmol/L Normal 1 K 4.2 LAB L501.5900 98-107 mmol/L Normal CL 102 LAB L501.6100 21.0-3 mmol/L Normal 2.0 CO2 27.0 LAB L501.6200 5-15 Normal GAP 9 Performed By: #### L500.2500 #### [facility] [address] [place], [address] LACTIC ACID Collected: 11/23/2017 Status: F Source: SEVEN 11:28 AM [facility] REPOSITORY Order Comment: Yes/No query for Sepsis Lactate Rule Y TYPE CODE TESTS RESULT OUT OF REFERENCE UNITS RANGE LAB L503.6005 0.4-2.0 mmol/L High LACTIC ACID 2.8 Result Comment: Critical Result(s) Called at: 11:30:04 11/23/2017 by: Mary Quigley to Silvana Rogel RN() Performed By: #### L503.6005 #### [facility] [address] [facility] [place], [address] Observed: 11/23/2017 Status: F Source: SEVEN CULTURE, BLOOD (WB) 11:28 AM [facility] REPOSITORY BC No growth in 5 days. Performed By: #### M200.1000 #### [facility] [address] [place], [address] CBC-COMPLETE BLOOD CNT Collected: 10/29/2017 Status: F Source: SEVEN NO DIFF 11:34 AM [facility] REPOSITORY Order Comment: Order Date: 06/29/17 Order Info: [id number] - CBC TYPE CODE TESTS RESULT OUT OF RANGE REFERENCE UNITS LAB L100.1000 4.4-11.0 K/mm3 Normal WBC 8.0 LAB L100.1200 4.6-6.2 M/mm3 Normal RBC 4.76 LAB L100.1300 13.0-16.5 g/dl Normal HGB 14.0 LAB L100.1400 40-54 % Normal HCT 41.8 LAB L100.1500 80-94 fL Normal MCV 87.8 LAB L100.1600 27.0-32.0 pg Normal MCH 29.4 LAB L100.1700 32-36 g/gl Normal MCHC 33.5 LAB L100.1810 11.6-14.6 % High RDW CV 14.9 LAB L100.1820 35.1-43.9 fl High RDW SD 47.6 LAB L100.1900 150-450 K/mm3 Normal PLT 278 LAB L100.2000 6.2-12.0 fl Normal MPV 9.7 Performed By: #### L100.0500, L500.4050, L500.4100, L503.0105 #### [facility] [address] [place], [address] COMPREHENSIVE METABOLIC Collected: 10/29/2017 Status: F Source: [facility] 11:34 AM [facility] REPOSITORY Order Comment: Order Date: 06/29/17 Order Info: [id number] - CMP Order Info: [id number] - LIPID TYPE CODE TESTS RESULT OUT OF RANGE REFERENCE UNITS LAB L501.0100 74-106 mg/dL Normal GLU 100 Result Comment: Fasting Glucose result from 100 to 125 mg/dL suggests IMPAIRED HOMEOSTASIS per A.D.A. criteria. Please note revised GLUCOSE reference range effective 2017. LAB L501.1000 7-18 mg/dL High BUN 25 LAB L501.1100 0.70-1.30 mg/dL High CREAT,SERUM 1.55 Result Comment: The validity of the calculated GFR AND GFRAA in patients over 70 years has not been determined. Clinical correlation is essential. LAB L501.1110 >60 mL/min Low EST GFR 46 Result Comment: Non- GFR Calc LAB L501.1115 >60 mL/min Low EST GFR - AA 55 Result Comment: GFR Calc LAB L501.1300 10-20 RATIO Normal BUN/CRE 16.1 LAB L501.1500 6.4-8.2 g/dL T Normal PROT 7.3 LAB L501.1800 3.2-5.0 g/dL Normal ALB 3.7 LAB L501.1950 2.2-4.2 g/dL Normal GLOB 3.6 LAB L501.2000 0.9-2.4 RATIO Normal A/G 1.0 LAB L501.2200 8.5-10.1 mg/dL CA Normal 9.2 LAB L501.4100 15-37 U/L Normal AST 20 LAB L501.4305 45-117 U/L Normal ALK P 54 LAB L501.4405 16-61 U/L Normal ALT 22 Result Comment: Please note revised ALT reference range effective 2017. LAB L501.4600 0.20-1.00 mg/dL Normal T BILI 0.70 LAB L501.5300 136-145 mmol/L Normal NA 136 LAB L501.5600 3.5-5.1 mmol/L Normal K 4.6 LAB L501.5900 98-107 mmol/L Normal CL 102 LAB L501.6100 21.0-32.0 mmol/L Normal CO2 25.0 LAB L501.6200 5-15 Normal GAP 9 Performed By: #### L100.0500, L500.4050, L500.4100, L503.0105 #### [facility] [address] [place], [address] LIPID PROFILE Collected: 10/29/2017 Status: F Source: SEVEN 11:34 AM [facility] REPOSITORY Order Comment: Order Date: 06/29/17 Order Info: 0786-1 - CMP Order Info: 62172-6 - LIPID TYPE CODE TESTS RESULT OUT OF RANGE REFERENCE UNITS LAB L501.4900 200 mg/dL Normal CHOL 158 Result Comment: <200 mg/dL Desirable 200-240 mg/dL Borderline >240 mg/dL High Risk LAB L501.5000 mg/dL Normal TRIG 163 Result Comment: The drugs N-Acetylcysteine and Metamizole may falsely depress this assay. Serum Triglycerides Reference Interval Normal <150 mg/dL Borderline high 150 - 199 mg/dL High 200 - 499 mg/dL Very High > or = 500 mg/dL LAB L501.6400 mg/dL Normal HDL 52 Result Comment: The drugs N-Acetylcysteine and Metamizole may falsely depress this assay. Reference Range HDL <40 mg/dL Low HDL Cholesterol HDL >or= 60 mg/dL High HDL Cholesterol LAB L501.6500 0-130 mg/dL Normal LDL 73 LAB L501.6600 5-40 mg/dL Normal VLDL 33 Performed By: #### L100.0500, L500.4050, L500.4100, L503.0105 #### [facility] [address] [place], [address] VITAMIN B12 Collected: 10/29/2017 Status: F Source: SEVEN 11:34 AM [facility] REPOSITORY Order Comment: Order Date: 06/29/17 Order Info: 2132-9 - B12 TYPE CODE TESTS RESULT OUT OF REFERENCE UNITS RANGE LAB L503.0105 211-911 pg/mL High Vitamin B12 1640 Performed By: #### L100.0500, L500.4050, L500.4100, L503.0105 #### [facility] [address] [place], [address] ALLERGIES ALLERGIES DATE TYPE / CODE NAME / CODE REACTION SEVERITY SOURCE 08/16/2018 Drug No Known Unknown [facility] Allergy/4160 Allergies/F00 Hospital 11207(SNOMED [id number](RXNOR Repository CT) M) ENCOUNTERS ENCOUNTERS ADMIT/DISCHARGE ACCOUNT ADMITTING ENCOUNTER LOCATION SOURCE NUMBER CLASS 09/15/2018 [id number] Ambulatory [place] 5 [facility] ing:MFPLAB Repository 08/20/2018/ [id number] Ambulatory [place] 8 9 [facility] ing:SDC Repository 08/16/2018/ [id number] Ambulatory BMSBuilding:B [place] [address] [facility] Repository 07/21/2018 [id number] Ambulatory [place] 9 [facility] ing:US Repository 06/15/2018 [id number] Ambulatory [place] 1 [facility] ing:LABSPEC Repository 03/01/2018/ [id number] Ambulatory BMSBuilding:B [place] [address] [facility] Repository 03/01/2018 [id number] Ambulatory BMSBuilding:B [place] [address] [facility] Repository 02/27/2018 [id number] Ambulatory [place] 3 [facility] ing:LAB Repository 11/23/2017 [id number] Parth Mai Ambulatory BMSBuilding:B [place] [facility] Repository 11/23/2017 [id number] Parth Mai Ambulatory BMSBuilding:B [place] 2 [facility] Repository 11/23/2017 [id number] Parth Mai Ambulatory BMSBuilding:B [place] 9 [facility] Repository 11/23/2017/ [id number] Moe Maiic Inpatient [place] 8 1 Encounter [facility] ing:HY3Fhys: Repository KE753Nqw: 1 11/23/2017 [id number] Parth Mai Ambulatory BMSBuilding:B [place] [facility] Repository 11/23/2017 [id number] Ambulatory BMSBuilding:B [place] 7 [facility] Repository 10/29/2017 [id number] Ambulatory [place] 2 [facility] ing:MFPLAB Repository PAYERS PAYERS ENCOUNTER GUARANTOR PAYER SUBSCRIBER SOURCE 09/15/2018 TUCKER W Primary TUCKER Lulu [id number] Insurance:MEDICARE GIAUQUEDOB: [address] Number: Repository [id number]: 330 [id number] [phone] () Date:2018-09-15 09/15/2018 Secondary TUCKER [place] Insurance:AARPPolicy GIAUQUEDOB: [facility] Number: [id number] [id number] Repository Date:5518-84-59[address]Q[address], [place] [address]UD: 09/15/2018 Tertiary NOT GIVENUNK [place] Insurance:SELF PAY [facility] Number: Effective Repository Date:2018-09-15 08/20/2018 TUCKER W Primary TUCKER Lulu [place] [id number] Insurance:MEDICARE GIAUQUEDOB: [address] Number: Repository [id number]: 330 [id number] [phone] () Date:2018-07-12 08/20/2018 Secondary TUCKER W [place] Insurance:AARPPolicy GIAUQUEDOB: Community Number: [id number] Hospital [id number] Repository Date:2407-31-74[address], [place] [address]WA: 08/20/2018 Tertiary NOT GIVENUNK [place] Insurance:SELF PAY [facility] Effective Repository Date:2018-07-12 08/16/2018 TUCKER W Primary TUCKER Lulu [place] [id number] Insurance:MEDICARE GIAUQUEDOB: Community BAYBERRY PART A [id number] [place] Number[facility] Repository [id number]: 330 [id number] [phone] () Date:2018-03-01 08/16/2018 Secondary TUCKER Lulu [place] Insurance:AARPPolicy GIAUQUEDOB: Community Number: [id number] Hospital [id number] Repository Date:3535-20-03VT [address], [place] [address]NU: 08/16/2018 Tertiary NOT GIVENUNK [place] Insurance:SELF PAY [facility] Number: Effective Repository Date:2018-08-11 07/21/2018 TUCKER W Primary TUCKER [place] [id number] Insurance:MEDICARE GIAUQUEDOB: Community BAYBERRY PART A [id number] [place] Number: Repository [address]Qfv: 330 [id number] [phone] () Date:2018-07-12 07/21/2018 Secondary TUCKER Luul [place] Insurance:AARPPolicy GIAUQUEDOB: Community Number: [id number] Hospital [id number] Repository Date:4737-94-63CJ [address], [place] [address]OW: 07/21/2018 Tertiary NOT GIVENUNK [place] Insurance:SELF PAY [facility] Number: Effective Repository Date:2018-07-12 06/15/2018 TUCKER W Primary TUCKER Lulu [place] [id number] Insurance:MEDICARE GIAUQUEDOB: Community BAYBERRY PART A [facility] [id number] [place] Number[facility] Repository [address]Ksl: 330 [id number] [phone] () Date:2018-06-15 06/15/2018 Secondary TUCKER W [place] Insurance:AARPPolicy GIAUQUEDOB: Community Number: [id number] Hospital [id number] Repository Date:5951-21-22RV [address]FT[place]QI, [place] [address]FZ: 06/15/2018 Tertiary NOT GIVENUNK [place] Insurance:SELF PAY [facility] Number: Effective Repository Date:2018-06-15 03/01/2018 TUCKER W Primary TUCKER W [place] [id number] Insurance:MEDICARE GIAUQUEDOB: Community BAYBERRY PART A [facility] [id number] [facility] [place] Number: Repository [address]Rff: 330 [id number] [phone] () Date:2017-08-26 03/01/2018 Secondary TUCKER W [place] Insurance:AARPPolicy GIAUQUEDOB: Community Number: [id number] Hospital [id number] Repository Date:3762-33-01KG [address]KKP, [place] [address]RL: 03/01/2018 Tertiary NOT GIVENUNK [place] Insurance:SELF PAY [facility] Number: Effective Repository Date:2018-03-01 03/01/2018 Tucker W Primary Tucker W [place] [id number] Insurance:MEDICARE GiauqueDOB: Community BAYBERRY PART A [facility] [id number] City Hospital [place] Number: Repository [address]Tet: 330 [id number] [phone] () Date:2018-03-01 03/01/2018 Secondary Tucker W [place] Insurance:AARPPolicy GiauqueDOB: Community Number: [id number] Hospital [id number] Repository Date:5686-28-39[address]OUW, [place] [address]OZ: 03/01/2018 Tertiary NOT GIVENUNK [place] Insurance:SELF PAY [facility] Number: Effective Repository Date:2018-03-01 02/27/2018 Tucker W Primary Tucker W [place] [id number] Insurance:MEDICARE GiauqueDOB: Community BAYBERRY PART A [facility] [id number] Number: Repository [address]Wpn: 330 [id number] [phone] () Date:2018-02-27 02/27/2018 Secondary Tucker W [place] Insurance:AARPPolicy GiauqueDOB: Community Number: [id number] Hospital [id number] Repository Date:1884-28-50[address]QWJ, [place] [address]BT: 02/27/2018 Tertiary NOT GIVENUNK [place] Insurance:SELF PAY [facility] Number: Effective Repository Date:2018-02-27 11/23/2017 Tucker W Primary Tucker W [place] [id number] Insurance:MEDICARE GiauqueDOB: Community BAYBERRY PART A [facility] [id number] Number: Repository [address]Saq: 330 [id number] [phone] () Date:2017-11-23 11/23/2017 Secondary Tucker W [place] Insurance:AARPPolicy GiauqueDOB: Community Number: [id number] Hospital [id number] Repository Date:0195-67-04[address]TIQ[place], [place] [address]NE: 11/23/2017 Tertiary NOT GIVENUNK [place] Insurance:SELF PAY [facility] Number: Effective Repository Date:2017-11-23 11/23/2017 Tucker W Primary Tucker W [place] [id number] Insurance:MEDICARE GiauqueDOB: Community BAYBERRY PART A [facility] [id number] Number: Repository [address]Mmj: 330 [id number] [phone] () Date:2017-11-23 11/23/2017 Secondary Tucker W [place] Insurance:AARPPolicy GiauqueDOB: Community Number: [id number] Hospital [id number] Repository Date:3364-08-20VU [address]JQAOPVE, [place] [address]AC: 11/23/2017 Tertiary NOT GIVENUNK [place] Insurance:SELF PAY [facility] Number: Effective Repository Date:2017-11-23 11/23/2017 Tucker W Primary Tucker W [place] [id number] Insurance:MEDICARE GiauqueDOB: Community BAYBERRY PART A [facility] [id number], [place] Number: Repository [address]Tag: 330 [id number] [phone] () Date:2017-11-23 11/23/2017 Secondary Tucker W [place] Insurance:AARPPolicy GiauqueDOB: Community Number: [id number] Hospital [id number] Repository Date:0313-13-63PE [address]BDPKH, [place] [address]JV: 11/23/2017 Tertiary NOT GIVENUNK [place] Insurance:SELF PAY [facility] Number: Effective Repository Date:2017-11-23 11/23/2017 Tucker W Primary Tucker W [place] [id number] Insurance:MEDICARE GiauqueDOB: Community BAYBERRY PART A [facility] [id number] City [facility] [place] Number: Repository [address]Pba: 330 [id number] [phone] () Date:2017-11-23 11/23/2017 Secondary Tucker W [place] Insurance:AARPPolicy GiauqueDOB: Community Number: [id number] Hospital [id number] Repository Date:5679-06-87IR [address]PDXVMLS, [place] [address]KA: 11/23/2017 Tertiary NOT GIVENUNK [place] Insurance:SELF PAY [facility] Number: Effective Repository Date:2017-11-23 11/23/2017 Tucker W Primary Tucker W [place] [id number] Insurance:MEDICARE GiauqueDOB: Community BAYBERRY PART A [facility] [id number] City Hospital [place] Number: Repository [id number]: 330 [id number] [phone] (HP) Date:2017-11-23 11/23/2017 Secondary Tucker Lulu [place] Insurance:AARPPolicy GiauqueDOB: Community Number: [id number] Hospital [id number] Repository Date:8065-88-82[address]YKLYJGW, [place] [address]ZJ: 11/23/2017 Tertiary NOT GIVENUNK [place] Insurance:SELF PAY [facility] Number: Effective Repository Date:2017-11-23 11/23/2017 Tucker W Primary Tucker W [place] [id number] Insurance:MEDICARE GiauqueDOB: Community BAYBERRY PART A [facility] [id number] City [facility] [place] Number: Repository [address]Xcr: 330 [id number] [phone] () Date:2017-11-23 11/23/2017 Secondary Tucker Lulu [place] Insurance:AARPPolicy GiauqueDOB: Community Number: [id number] Hospital [id number] Repository Date:8459-54-78[address]QNVBNQL, [place] [address]EQ: 11/23/2017 Tertiary NOT GIVENUNK [place] Insurance:SELF PAY [facility] Number: Effective Repository Date:2017-11-23 10/29/2017 Tucker W Primary [place] W [place] [id number] Insurance:MEDICARE GiauqueDOB: Community BAYBERRY PART A [place] [id number] [place] Number[place] Repository [address]Tdu: 330 [id number] [phone] (HP) Date:2017-10-29 10/29/2017 Secondary [place] Insurance:AARPPolicy GiauqueDOB: Community Number: [id number] Hospital [id number] Repository Date:6777-36-42[address]RQBQUTK, [place] [address]PT: 10/29/2017 Tertiary NOT GIVENUNK [place] Insurance:SELF PAY [facility] Number: Effective Repository Date:2017-10-29
== END 2018-08-20 12:38 | disposition home or self-care (01) ==
LOC: SDC 08:12 → AC 08:12
PROVIDERS: Internal Medicine Cardiovascular Disease; Family Provider Family Medicine; PCP Family Medicine; Referring Provider Urology; Visit Provider Urology
PROC: (CPT 54161; principal; 2018-08-20 09:45)
DX: N47.1 Phimosis (principal); N40.1 Benign prostatic hyperplasia with lower urinary tract symptoms; N13.8 Other obstructive and reflux uropathy; G30.9 Alzheimer's disease, unspecified; F02.80 Dementia in other diseases classified elsewhere, unspecified severity, without behavioral disturbance, psychotic disturbance, mood disturbance, and anxiety; I10 Essential (primary) hypertension; F41.9 Anxiety disorder, unspecified; F32.9 Major depressive disorder, single episode, unspecified; M19.90 Unspecified osteoarthritis, unspecified site; K21.9 Gastro-esophageal reflux disease without esophagitis; D64.9 Anemia, unspecified; E78.00 Pure hypercholesterolemia, unspecified; I25.10 Atherosclerotic heart disease of native coronary artery without angina pectoris; Z95.5 Presence of coronary angioplasty implant and graft; Z79.82 Long term (current) use of aspirin; Z79.899 Other long term (current) drug therapy
CPT/HCPCS: 52000; 54150; 36415; 80061; 80076; J7120; J2405

== ENCOUNTER → 2018-09-15 09:42 | Outpatient (CLI) | payer MEDICARE, OTHER, SELFPAY ==
[2018-08-20 08:39] VITALS: BMI 30.9
[2018-09-15 12:08] LABS: Hematocrit 37.3 % (40-54); Hemoglobin 11.7 g/dl (13.0-16.5); Mean Corp Hgb Conc 31.4 g/gl (32-36); Mean Corpuscular Hgb 26.7 pg (27.0-32.0); Mean Platelet Vol. 9.4 fl (6.2-12.0); Platelet Count 265 K/mm3 (150-450); RBC Distribution Width CV 15.2 % (11.6-14.6); RBC Distribution Width SD 47.3 fl (35.1-43.9); Red Blood Count 4.39 M/mm3 (4.6-6.2); White Blood Count 8.8 K/mm3 (4.4-11.0)
[2018-09-15 12:13] LABS: Scan Indicated on CBC? Y/N NO
[2018-09-15 12:37] LABS: Vitamin B12 > 2000 pg/mL (211-911)
[2018-09-15 12:38] LABS: Anion Gap 13 (5-15); BUN 28 mg/dL (7-18); BUN/Creat Ratio 14.6 RATIO (10-20); Calcium,Total 8.8 mg/dL (8.5-10.1); Chloride 107 mmol/L (98-107); Creatinine, Serum 1.92 mg/dL (0.70-1.30); EST Glomerular Filtration Rate 36 mL/min (>60); Est Glom Filt Rate - Afr Amer 43 mL/min (>60); Glucose 137 mg/dL (74-106); Potassium 4.3 mmol/L (3.5-5.1); Sodium Level 142 mmol/L (136-145)
== END ==
PROVIDERS: Family Provider Family Medicine; PCP Family Medicine; Visit Provider Family Medicine
DX: I10 Essential (primary) hypertension (principal); E53.8 Deficiency of other specified B group vitamins
CPT/HCPCS: 36415; 80048; 82607; 85027

== ENCOUNTER 2018-10-31 17:53 | Observation (INO) | payer MEDICARE, OTHER, SELFPAY ==
[2018-10-31] VITALS (11 sets, daily range): BP systolic 100–209; BP diastolic 64–118; PULSE 81–89; RESP 16–18; TEMP 36.4–36.5; O2SAT 90–97; BMI 32.4; BMI 30.4
[2018-10-31] MEDS: Ondansetron 4 MG/2 ML Vial IV (18:14)
--- NOTE | 2018-10-31 18:29 | CT_ITS ---
STUDY: CT BRAIN WITHOUT CONTRAST REASON FOR EXAM: Male, 83 years old. Nausea. Lightheadedness. RADIATION DOSAGE (If Supplied By Facility): CTDIvol = ( 44.99 ) mGy, DLP = ( 796.11 ) mGycm TECHNIQUE: Transaxial CT imaging of the brain was performed without administration of intravenous contrast material. Individualized dose optimization techniques were used for this CT. COMPARISON: None. FINDINGS: There is no acute bleed or infarct. There are stable chronic ischemic and atrophic changes. There is prominence of the ventricular system greater than expected for the degree of atrophy. This may be due to central atrophy or may be due to normal pressure hydrocephalus. Correlation with neurological exam is recommended. The visualized paranasal sinuses are clear. The mastoid air cells are well aerated. There is no skull fracture. CT/Brain/Head without Contrast IMPRESSION: Stable chronic ischemic and atrophic changes. No acute bleed or infarct. Prominence of the ventricular system greater than expected for the degree of atrophy. This may be due to central atrophy or may be due to normal pressure hydrocephalus. Correlation with neurological exam is recommended. Electronically Signed: Bryan Woods, at 19:40 EST Tel , Service support ,
--- NOTE | 2018-10-31 18:29 | EKG12_ITS ---
Test Reason : Blood Pressure : / mmHG Vent. Rate : 085 BPM Atrial Rate : 085 BPM P-R Int : 130 ms QRS Dur : 108 ms QT Int : 396 ms P-R-T Axes : 046 011 078 degrees QTc Int : 471 ms Normal sinus rhythm Incomplete right bundle branch block Nonspecific ST abnormality Abnormal ECG Confirmed by SURESH CABALLERO, PACO ([id number]), health editor MARGE MCRAE ([id number]) on 11/02/2018 4:36:21 PM Referred By: DEMETRICE Confirmed By:PACO PRINCE MD
--- NOTE | 2018-10-31 18:30 | RAD_ITS ---
STUDY: X-RAY CHEST REASON FOR EXAM: Male, 83 years old. Dizziness TECHNIQUE: Frontal view of the chest COMPARISON: 11/23/2017 FINDINGS: There is stable elevation of the right hemidiaphragm with associated right basilar atelectasis. The lungs are otherwise clear. There are no pleural effusions. There is no pneumothorax. The heart is normal in size. Again noted are sternotomy wires. The visualized osseous structures are within normal limits. RAD/Chest 1 View (Portable) IMPRESSION: No acute thoracic pathology. Electronically Signed: Bryan Woods, at 18:58 EST Tel , Service support ,
[2018-10-31] MEDS: diazePAM 5 MG Tablet 2.5 MG PO (18:42)
[2018-10-31 19:01] LABS: Absolute Lymphocyte Count 2.11 X10^3/ul (0.83-4.51); Absolute Neutrophil Count 8.1 X10^3/uL (2.0-7.7); Basophil# 0.02 X10^3/uL; Basophil% 0.2 % (0-1); Eosinophil# 0.29 X10^3/uL; Eosinophils% 2.6 % (0-5); Hematocrit 35.1 % (40-54); Hemoglobin 11.3 g/dl (13.0-16.5); Lymphocyte # 2.11 X10^3/ul (4.0); Lymphocyte % 18.7 % (19-41); Mean Corp Hgb Conc 32.2 g/gl (32-36); Mean Platelet Vol. 8.8 fl (6.2-12.0); Monocyte# 0.69 X10^3/uL; Monocyte% 6.1 % (0-10); Neutrophil # 8.07 X10^3/uL (2.7-7.7); Neutrophil % 71.7 % (47-70); POSITIVE COUNT NO; POSITIVE DIFFERENTIAL NO; POSITIVE MORPHOLOGY NO; Platelet Count 262 K/mm3 (150-450); RBC Distribution Width CV 15.5 % (11.6-14.6); RBC Distribution Width SD 47.5 fl (35.1-43.9); Red Blood Count 4.18 M/mm3 (4.6-6.2); White Blood Count 11.3 K/mm3 (4.4-11.0)
[2018-10-31 19:12] LABS: Anion Gap 12 (5-15); BUN 33 mg/dL (7-18); BUN/Creat Ratio 16.6 RATIO (10-20); Calcium,Total 8.5 mg/dL (8.5-10.1); Chloride 104 mmol/L (98-107); Creatinine, Serum 1.99 mg/dL (0.70-1.30); EST Glomerular Filtration Rate 34 mL/min (>60); Est Glom Filt Rate - Afr Amer 41 mL/min (>60); Estimated Creatinine Clearance 24.47 ml/min; Glucose 155 mg/dL (74-106); Potassium 4.3 mmol/L (3.5-5.1); Sodium Level 140 mmol/L (136-145)
--- NOTE | 2018-10-31 19:37 | ED.VISSUMM ---
- ER Visit Summary Date of Service: 10/31/18 Chief Complaint: Dizziness History of Present Illness: The patient is a 83 M who got up this morning went to zoroastrianism when had lunch with his at the care center. He came home this afternoon laid down for his nap. He went to get up to use the bathroom and when he stood up he got very lightheaded and dizzy. He notes nausea. He states the room was spinning. He laid back down and called for his daughter who is a nurse. She took his vital signs which appeared stable but he appeared very weak on his feet. Earlier in the day he had felt fine. This is never happened to him before. He has had a CABG. Physical Examination: Afebrile noted hypertension 209/95 Gen: Well-nourished well-developed Head: Normocephalic atraumatic Eyes: Perrl EOMI he has nystagmus with the fast component to the left ENT: TMs clear no rhinorrhea moist mucous membranes Neck: Supple no lymphadenopathy no JVD nontender CVS: Regular rate rhythm no murmurs normal S1-S2 Respiratory: No distress clear to auscultation bilaterally chest nontender Abdomen: Soft nontender nondistended normal bowel sounds no masses Back: Nontender Extremity: Nontender no edema Skin: Normal color no rash Neuro: alert orientated ?3 CN II-XII intact normal strength sensation reflexes patient performed poorly on finger to nose but is unclear if it is related to his weakness nystagmus or vertigo. Psych: Normal affect normal mood Test Results: Head CT with no intracranial hemorrhage or subacute strokes. Basic labs showed chronic kidney disease. Emergency Department Course and Treatment: Patient was watched on the monitor. He received initially p.o. Valium and Zofran. He also received IV fluids. Repeat examination we try to get the patient to stand and he vomited. He received additional Ativan IV and Zofran and fluids. He is feeling much better however is extremely unsteady on his feet. His nystagmus has resolved. Family is concerned about how he will be at home. Our plan will be to admit for observation tonight. Impression: 1. Vertigo 2. Hypertension This note was generated with [employer]roPower[employer] software. It may contain incorrect words, spelling, and punctuation that were not noted in review of the chart prior to signing ED Disposition - Plan for ED Patient: Referrals: Randy Buchanan MD [Primary Care Provider] -
[2018-10-31] MEDS: LORazepam 2 MG/ML Syringe 0.5 MG IV (20:11)
[2018-10-31] MEDS: 0.9% Normal Saline 1,000 ML 999 ML IV (20:11)
[2018-10-31] MEDS: Ondansetron 4 MG/2 ML Vial 8 MG IV (20:11)
--- NOTE | 2018-10-31 21:46 | HP.PCM_ITS ---
Problem List (1) Stroke-like symptoms Status: Acute (2) Acute kidney injury superimposed on CKD Status: Chronic History of Present Illness Date of Admission: 10/31/18 Chief Complaint: Vertigo The patient is a 83 year old M with a significant history of CKD; CAD status post CABG; occlusion of PFO; dementia; TIA; prosthetic heart valve who presented to the emergency department with a feeling of a spinning sensation on the same day of admission. Associated with his symptoms is nausea and vomiting. Brain CT was remarkable for stable chronic ischemic and atrophic changes and prominence of ventricular system greater than expected for the degree of atrophy, for which concern was raised for normal pressure hydrocephalus. At emergency department patient was given Zofran, Ativan and Valium. Reportedly he became unstable on his feet as he received his medications. Emergency department doctor reported that patient had nystagmus to the left which improved after administration of above medication at the ED. Also he was noted to have severely elevated blood pressure for which reason he was given hydralazine IV. 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) CKD (chronic kidney disease), stage III (Chronic) Hypertension (Chronic) GERD (gastroesophageal reflux disease) (Chronic) Medical History: Medical History (Last Reviewed 10/31/18 @ 22:52 by Demetrius Cole MD) Hyperlipidemia (Chronic) E78.5 Atherosclerotic heart disease of [place] coronary artery without angina pectoris (Chronic) I25.10 CABG x1 - SANDERS to LAD & closure of PFO 02/14 Patent foramen ovale (Acute) Onset Date: ~02/2010 Q21.1 closure of PFO 02/14 Congenital defect of septal closure (Chronic) Q21.9 Carotid bruit (Chronic) R09.89 Premature ventricular contraction (Acute) I49.3 Presence of prosthetic heart valve (Chronic) Z95.2 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) I65.22 Severe sepsis (Acute) A41.9, R65.20 DEWAYNE (acute kidney injury) (Acute) N17.9 CKD (chronic kidney disease), stage III (Chronic) N18.3 Hypertension (Chronic) I10 GERD (gastroesophageal reflux disease) (Chronic) K21.9 Asthma J45.909 TIA (transient ischemic attack) G45.9 Alzheimer's dementia G30.9, F02.80 Dementia (Inactive) F03.90 Allergies No Known Allergies Allergy (Verified 08/16/18 11:01) Home Medications: Ambulatory Orders Medication Instructions Recorded Aspirin [Aspirin, Baby] 81 mg PO DAILY@0800 04/03/16 Donepezil HCl [Aricept] 10 mg PO QHS 04/03/16 Hydrocodone/Acetaminophen 1 ea PO BID 04/03/16 [Hydrocodone-Acetamin 5-325 mg] Meloxicam [Mobic] 15 mg PO DAILY 04/03/16 Omeprazole [Prilosec] 20 mg PO DAILY 04/03/16 Cyanocobalamin (Vitamin B-12) 1,000 mcg PO DAILY 11/23/17 [Vitamin B-12] Duloxetine Hcl [Cymbalta] 60 mg PO DAILY 11/23/17 Quetiapine Fumarate [Seroquel] 200 mg PO BREAKFAST 11/23/17 Simvastatin 40 mg PO QHS 11/23/17 cholecalciferol (vitamin D3) 50,000 unit PO QWEEK 03/01/18 50,000 unit capsule Quetiapine Fumarate [Seroquel] 100 mg PO QHS 08/13/18 metoprolol succinate ER 25 mg 25 mg PO DAILY 30 Days #30 tab 08/16/18 tablet,extended release 24 hr Albuterol IH (ProAir) [Proair Hfa] 2 inh INHALATION 4X/DAY 10/31/18 Surgical History: Surgical History (Last Reviewed 10/31/18 @ 22:52 by Demetrius Cole MD) Aortocoronary bypass status (Chronic) Onset Date: ~02/2010 Z95.1 CABG x1 - SANDERS to LAD & closure of PFO 02/14 H/O aortic valve replacement Z95.2 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 Z96.643 History of left-sided carotid endarterectomy Z98.890 Surgical History: coronary bypass surgery - ?1, total hip arthroplasty - Bilateral Lives: With Family Smoking Status: Former smoker - *Family History Maternal Family History: Family History (Last Reviewed 10/31/18 @ 22:54 by Demetrius Cole MD) Father Heart disease Brother CAD (coronary artery disease) Myocardial infarction, Onset Age: 57 Hx of CABG Sister CVA (cerebral vascular accident) Sister CAD (coronary artery disease) History Items: - - Unable to obtain as patient is demented Review of Systems Constitutional: Reports: Weakness. Denies: Chills, Fever, Weight Change HEENT: Reports: Head Aches. Denies: Sinus Congestion, Sinus Drainage Cardiovascular: Denies: Chest Pain, Palpitations Respiratory: Denies: Cough, Shortness of breath at rest, Sputum production Gastrointestinal: Reports: Nausea, Vomiting. Denies: Abdominal Pain Genitourinary: Denies: Dysuria Musculoskeletal: Denies: Joint Pain, Joint Tenderness Skin: Denies: Rash, Wounds Neurological: Reports: Balance problems - after receiving ativan and valium at the ED. Denies: Focal weakness, Numbness, Tingling Psychiatric: Denies: Anxiety, Depression, Homicidal Ideations, Suicidal Ideations Hematologic/ Lymphatic: Denies: Easy Bruising, Easy Bleeding VTE Information - Inpt Only VTE Present on Admission: No VTE Mechan Device Prophylaxis: None VTE Pharm Prophylaxis ordered?: Yes Patient Problems: Active and Suspected Problems (Last Updated 03/01/18 @ 07:42 by Robyn Falcon) Stroke-like symptoms (Acute) - Physical Exam General: Alert, Oriented x3, Cooperative HEENT: Atraumatic, PERRLA, Normocephalic, - - Extraocular eye movement was with nystagmus. Neck: Supple, No JVD, Negative Carotid Bruits Lungs: Normal air movement, Wheezes - mild Cardiovascular: Regular rate, No murmurs Abdomen: Bowel Sounds Present, Soft, Non Tender Extremities: No edema, Capillary Refill Less than 3 Seconds Skin: No rashes, No breakdown Musculoskeletal: No Muscle Wasting Neurological: Neuro grossly intact Psych/Mental Status: Normal Affect, Appropriate Vital Signs Temp Pulse Resp BP Pulse Ox 97.7 F L 86 17 166/89 H 96 10/31/18 17:54 10/31/18 20:31 10/31/18 20:31 10/31/18 20:31 10/31/18 20:31 Oxygen Flow Rate (L/min) 2 Oxygen Delivery Method Nasal Cannula Weight: 88.4 kg Body Mass Index (BMI) 32.4 Laboratory Tests Past 24 Hrs 10/31/18 10/31/18 18:47 18:47 WBC 11.3 H RBC 4.18 L Hgb 11.3 L Hct 35.1 L MCV 84.0 MCH 27.0 MCHC 32.2 RDW 15.5 H RDW Differential 47.5 H Plt Count 262 MPV 8.8 Immature Gran % (Auto) 0.700 Neut % (Auto) 71.7 H Lymph % (Auto) 18.7 L [place] % (Auto) 6.1 Eos % (Auto) 2.6 Baso % (Auto) 0.2 Absolute Neuts (auto) 8.1 H Absolute Lymphs (auto) 2.11 Total Counted Not Reportable Sodium 140 Potassium 4.3 Chloride 104 Carbon Dioxide 24.0 Anion Gap 12 BUN 33 H Creatinine 1.99 H Estim Creat Clear Calc 24.47 Est GFR (MDRD) Af Amer 41 L Est GFR (MDRD) Non-Af 34 L BUN/Creatinine Ratio 16.6 Glucose 155 H Calcium 8.5 Assessment/Plan All Active Problems (Last Updated 03/01/18 @ 07:42 by Robyn Falcon) Stroke-like symptoms (Acute) Patent foramen ovale (Acute ~02/2010) Premature ventricular contraction (Acute) Severe sepsis (Acute) DEWAYNE (acute kidney injury) (Acute) The patient is a 83 year old M with a significant history of CKD; CAD status post CABG; occlusion of PFO; dementia; and TIA; prosthetic heart valve who presented to the emergency department with a feeling of a spinning sensation ; nausea; and vertigo and found to have severely elevated blood pressure; creatinine above his baseline and brain CT findings of a large ventricular system. Strokelike symptoms Brain CT was remarkable for stable chronic ischemic and atrophic changes and prominence of ventricular system greater than expected for the degree of atrophy, for which concern was raised for normal pressure hydrocephalus. Radiograph was independently reviewed. I agree with with radiologist reading. -Check Lipid level Physical therapy and occupational therapy to work with patient. Consider vestibular exercises when patient is more stable. Patient has no speech changes. N.p.o. until bedside swallow eval. Daily aspirin continued. Home simvastatin change to high intensity statin of Lipitor 40 mg nightly. Lipid profile ordered. Permissive hypertension. Control blood pressure with labetalol for systolic blood pressure of more than 220 or diastolic blood pressure of more than 120. Hold off home metoprolol. MRI/MRA without contrast. Of head; brain; and neck. Because of DEWAYNE on CKD with concern for risk of nephrogenic systemic fibrosis, MRA of neck without contrast was not ordered. Echocardiogram ordered. Admission diagnosis include hypertensive emergency. However because of accompanying nystagmus it is more probable the patient may have posterior circulation stroke or NPH. Permissive hypertension as above. Meclizine as needed for vertigo. Zofran as needed for nausea and vomiting. Will shy away from benzodiazepines at this time. Consider neurology consult. DEWAYNE on CKD stage III On admission his creatinine was 1.99. Baseline creatinine is around 1.5. BUN/creatinine is 16.6. Prerenal versus intrinsic renal. Received IV bolus in the emergency department. We will continue patient on maintenance fluid of normal saline. Trend BMP. Probable asthma Stable Patient with wheezing on examination. Family reported patient has wheezes on examination. Reported patient was started on pro-air at home. Albuterol as needed ordered. Dementia Aricept continued Depression/ anxiety Cymbalta and Seroquel continued Hypertension On presentation his blood pressure was not within goal. He received hydralazine IV at emergency department. Because of a concern for posterior circulation stroke will put patient on permissive hypertension for the next 24 hours. Chronic pain of bilateral hip Hydrocodone and acetaminophen continued. DVT prophylaxis Subcutaneous heparin. Code Visit OBSV E&M: [id number] Initial observation care L3
[2018-10-31] MEDS: hydrALAZINE 20 MG/ML Vial 10 MG IV (22:05)
--- NOTE | 2018-10-31 23:31 | ECHOCS_ITS ---
Reason For Study: TIA/CVA Procedure This was a 2D Doppler, Color Flow transthoracic echocardiogram. The exam was of poor technical quality due to poor acoustic windows. Exam performed portable in patient room. Left Ventricle Normal LV size. Left ventricular systolic function is normal. The estimated ejection fraction is 65 %. Normal diastology for age. No regional wall motion abnormalities noted. Mitral Valve There is moderate mitral annular calcification. Tricuspid Valve Normal tricuspid valve. Mild to moderate (1-2+) tricuspid valve insufficiency. Pulmonary artery systolic pressure is 44 mmHg. Aortic Valve Peak aortic valve gradient 21 mmHg. Mean aortic valve gradient 12 mmHg. Stable appearing bioprosthetic aortic valve apparatus. Pulmonic Valve The pulmonic valve is not well visualized. Great Vessels Normal aortic root. The pulmonary artery is normal size. Normal inferior vena cava. Pericardium/Pleural No pericardial effusion. Medication Diluted definity 3ml given slow IV push to enhance endocardial definition. MMode/2D Measurements & Calculations LVIDd: 4.2 cm IVSd: 0.96 cm LVOT diam: 1.9 cm LVIDs: 2.6 cm LVPWd: 1.1 cm LVOT area: 2.7 cm2 RVDd: 2.9 cm FS: 37.5 % Ao root diam: 1.9 cm LAV(MOD-bp): 54.1 ml LVAd ap4: 24.8 cm2 LAV(MOD-bp) Indexed: 27.7 ml/m2 EDV(MOD-sp4): 67.8 ml LAV(MOD-sp2): 41.4 ml EDV(sp4-el): 70.8 ml LAV(MOD-sp4): 69.8 ml LVAs ap4: 13.8 cm2 ESV(MOD-sp4): 25.8 ml ESV(sp4-el): 26.5 ml EF(MOD-sp4): 62.0 % EF(sp4-el): 62.6 % SV(MOD-sp4): 42.0 ml SV(sp4-el): 44.3 ml LA A4 area: 22.7 cm2 LA dimension(2D): 4.1 cm RA A4 area: 20.4 cm2 Time Measurements MV dec time: 0.15 sec Doppler Measurements & Calculations MV E max ovi: 90.8 cm/sec Lat Peak E' Ovi: 11.8 cm/sec Med Peak E' Ovi: 6.5 cm/sec MV A max ovi: 79.5 cm/sec E/E' lat: 7.7 E/E' med: 14.1 MV E/A: 1.1 MV V2 max: 100.4 cm/sec Ao V2 max: 230.3 cm/sec LV V1 max: 87.9 cm/sec MV max P.0 mmHg Ao max P.2 mmHg LV V1 max P.1 mmHg MV V2 mean: 60.9 cm/sec Ao V2 mean: 168.9 cm/sec LV V1 mean P.7 mmHg MV mean P.6 mmHg Ao mean P.4 mmHg LV V1 mean: 61.4 cm/sec MV V2 VTI: 24.7 cm Ao V2 VTI: 49.6 cm LV V1 VTI: 20.6 cm MVA(VTI): 2.3 cm2 FLOR(I,D): 1.1 cm2 FLOR(V,D): 1.0 cm2 SV(LVOT): 55.9 ml TR max ovi: 321.8 cm/sec MV P1/2t-pr_phl: 64.8 msec TR max P.7 mmHg Interpretation Summary Normal LV size. Left ventricular systolic function is normal. The estimated ejection fraction is 65 %. Pulmonary artery systolic pressure is 44 mmHg. Mean aortic valve gradient 12 mmHg. Normal diastology for age. Stable appearing bioprosthetic aortic valve apparatus. Stable FLOR Contrast injection was performed. Compared to previous study, the left ventricular systolic function is the same.. Ordering Physician: Demetrius Cole Referring Physician: JERSON CALLAWAY Performed By: Janentte Goodman RDCS, RVT
[2018-11-01] VITALS (9 sets, daily range): BP systolic 116–145; BP diastolic 56–119; PULSE 71–87; RESP 14–16; TEMP 36.3–36.7; O2SAT 93–99; BMI 30.4
[2018-11-01] MEDS: Atorvastatin Calcium 40 MG Tablet PO (00:33)
[2018-11-01] MEDS: Donepezil HCl 10 MG Tablet PO (00:33)
[2018-11-01] MEDS: QUEtiapine 100 MG Tablet PO (00:34)
[2018-11-01] MEDS: HYDROcodone Bitartrate/Apap 5/325 Tablet PO ×2 (00:34→11:49)
[2018-11-01] MEDS: 0.9% Normal Saline 1,000 ML 100 ML IV (00:37)
[2018-11-01] MEDS: 0.9% NaCl Peripheral Flush Adult/Peds IV (00:41)
[2018-11-01 06:19] LABS: Anion Gap 8 (5-15); BUN 30 mg/dL (7-18); Calcium,Total 8.1 mg/dL (8.5-10.1); Chloride 107 mmol/L (98-107); Cholesterol 120 mg/dL (200); Creatinine, Serum 1.76 mg/dL (0.70-1.30); EST Glomerular Filtration Rate 39 mL/min (>60); Est Glom Filt Rate - Afr Amer 48 mL/min (>60); Estimated Creatinine Clearance 27.66 ml/min; Glucose 106 mg/dL (74-106); High Density Lipoprotein 45 mg/dL; Potassium 4.1 mmol/L (3.5-5.1); Sodium Level 141 mmol/L (136-145); Triglycerides 141 mg/dL; Very Low Density Lipoprotein 28 mg/dL (5-40)
--- NOTE | 2018-11-01 08:07 | MRI_ITS ---
STUDY: MRA NECK WITHOUT CONTRAST REASON FOR EXAM: Male, 83 years old. Vertigo and headache, previous carotid endarterectomy TECHNIQUE: Source images were obtained, MIPs were performed. The study was performed unenhanced. COMPARISON: Ultrasound 10/26/2015 FINDINGS: RIGHT CAROTID ARTERIES: Normal right common carotid artery (CCA). Normal right common carotid bulb. Normal origin of the right internal carotid (ICA) artery without a hemodynamically significant stenosis. Normal visualized cervical portion of the right internal carotid artery. Normal origin of the right external carotid artery (ECA). LEFT CAROTID ARTERIES: Normal left common carotid artery (CCA). Normal left common carotid bulb. Normal origin of the left internal carotid (ICA) artery without a hemodynamically significant stenosis. Normal visualized cervical portion of the left internal carotid artery. Normal origin of the left external carotid artery (ECA). VERTEBRAL ARTERIES: Normal antegrade flow within the bilateral vertebral artery without a hemodynamically significant stenosis. MRI/MRA Neck without Contrast IMPRESSION: Normal bilateral cervical carotid and vertebral arteries. Electronically Signed: Marcus Bhatti MD at 10:53 EST Tel , Service support ,
--- NOTE | 2018-11-01 08:07 | MRI_ITS ---
STUDY: MRA OF THE HEAD WITHOUT CONTRAST REASON FOR EXAM: Male, 83 years old. CVA and vertigo TECHNIQUE: 3-D [id number] (TOF) imaging was performed with MIPs. The study was performed unenhanced. COMPARISON: MRI same day FINDINGS: Normal bilateral petrous carotid arteries. Normal right cavernous carotid artery with a normal supraclinoid bifurcation. Normal left cavernous carotid artery with a normal supraclinoid bifurcation. Normal right A1 segments of the anterior cerebral artery. Normal left A1 segments of the anterior cerebral artery. Normal intact anterior communicating artery (ACOM). Normal bilateral A2 segments of the anterior cerebral arteries. Normal right M1 and M2 segments of the middle cerebral arteries, with a normal M1 bifurcation. Normal left M1 and M2 segments of the middle cerebral arteries, with a normal M1 bifurcation. Normal right posterior communicating artery (PCOM). Normal left posterior communicating artery (PCOM). Normal bilateral vertebral arteries. Normal basilar artery with a normal basilar bifurcation. The visualized bilateral superior cerebellar (SCA) arteries are normal. Normal bilateral P1, P2 and visualized P3 segments of the posterior cerebral arteries. There is no demonstrated aneurysm of the [place]. There is no major vessel occlusion or hemodynamically significant stenosis. There is no demonstrated abnormality of the visualized brain. MRI/MRA Head ONLY without Contrast IMPRESSION: Normal MRA of the head Electronically Signed: Marcus Bhatti MD at 10:50 EST Tel , Service support ,
--- NOTE | 2018-11-01 08:07 | MRI_ITS ---
STUDY: MRI BRAIN WITHOUT CONTRAST REASON FOR EXAM: Male, 83 years old. CVA with vertigo and headache TECHNIQUE: Standardized multiplanar fat and water weighted pulse sequences were obtained. COMPARISON: CT 10/31/2018 FINDINGS: Prominent ventricles relative to sulci suggesting normal pressure hydrocephalus. There are multiple confluent white matter hyperintensities, distributed throughout the deep white matter tracts of the cerebral hemispheres, consistent with severe chronic white matter ischemic changes. Normal bilateral basal ganglia. Normal thalami. There is no extra-axial fluid accumulation. Normal flow voids within the major intracranial circulation suggesting patency by spin echo criteria. Normal sella turcica, pituitary gland, infundibular stalk, optic chiasm and hypothalamus. Normal tectal plate and pineal gland. Normal midbrain, lina and medulla. Remote infarcts in the cerebellum. Normal basal cisterns. Normal bilateral temporal bones. Normal bilateral internal auditory canals. There are bilateral ocular lens implants with otherwise normal intraorbital contents. Bilateral ethmoid and right frontal sinus disease. Left mastoid sinus disease. Normal visualized soft tissue structures. Normal visualized upper cervical spine. 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 No evidence of acute infarct or hemorrhage. Electronically Signed: Marcus Bhatti MD at 10:38 EST Tel , Service support ,
[2018-11-01] MEDS: QUEtiapine 100 MG Tablet 200 MG PO (11:40)
[2018-11-01] MEDS: Aspirin 81 MG TAB.CHEW PO (11:40)
[2018-11-01] MEDS: DULoxetine Hcl 60 MG Capsule PO (11:41)
[2018-11-01] MEDS: Pantoprazole Sodium 20 MG Tablet PO (11:41)
[2018-11-01] MEDS: Cyanocobalamin 500 MCG Tablet 1000 MCG PO (11:41)
[2018-11-01] MEDS: Meloxicam 15 MG Tablet PO (11:41)
[2018-11-01] MEDS: Heparin Injection (Vial) 5,000 UNIT/ML VIAL 5000 UNIT SC (11:41)
--- NOTE | 2018-11-01 13:31 | PCM.CONS.GEN ---
Problem List (1) Dizziness Status: Acute Reason for Consult Date of Consultation: 11/01/18 Reason for Consultation: Dizziness History of Present Illness: The patient is a 83 year old M with PMH HTN, HLD, H/O TIA, Dementia, CAD s/p CABG, s/p PFO closure S/P prosthetic valve, CKD admitted with dizziness. History is obtained from his daughter and patient. Per daughter he had acute onset dizziness yesterday (10/31/18), the room was spinning, dizziness occurred when he was laying down, had nausea, but denies any focal motor weakness, sensory loss, visual disturbances or sensory loss. Per daughter patient ambulates with a rollator, denies any gait instability, denies any falls, does need assistance for his ADLs, and does not drive. Per patient his dizziness has improved since admission. MRI brain did not show any acute stroke, but reported to show possible NPH, MRA head/neck did not show any hemodynamically significant stenosis or occlusion. 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) CKD (chronic kidney disease), stage III (Chronic) Hypertension (Chronic) GERD (gastroesophageal reflux disease) (Chronic) Medical History: Medical History (Last Reviewed 10/31/18 @ 22:52 by Demetrius Cole MD) Hyperlipidemia (Chronic) E78.5 Atherosclerotic heart disease of [place] coronary artery without angina pectoris (Chronic) I25.10 CABG x1 - SANDERS to LAD & closure of PFO 02/14 Patent foramen ovale (Acute) Onset Date: ~02/2010 Q21.1 closure of PFO 02/14 Congenital defect of septal closure (Chronic) Q21.9 Carotid bruit (Chronic) R09.89 Premature ventricular contraction (Acute) I49.3 Presence of prosthetic heart valve (Chronic) Z95.2 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) I65.22 Severe sepsis (Acute) A41.9, R65.20 DEWAYNE (acute kidney injury) (Acute) N17.9 CKD (chronic kidney disease), stage III (Chronic) N18.3 Hypertension (Chronic) I10 GERD (gastroesophageal reflux disease) (Chronic) K21.9 Asthma J45.909 TIA (transient ischemic attack) G45.9 Alzheimer's dementia G30.9, F02.80 Dementia (Inactive) F03.90 Allergies No Known Allergies Allergy (Verified 08/16/18 11:01) Home Medications: Ambulatory Orders Medication Instructions Recorded Aspirin [Aspirin, Baby] 81 mg PO DAILY@0800 04/03/16 Donepezil HCl [Aricept] 10 mg PO QHS 04/03/16 Hydrocodone/Acetaminophen 1 ea PO BID 04/03/16 [Hydrocodone-Acetamin 5-325 mg] Meloxicam [Mobic] 15 mg PO DAILY 04/03/16 Omeprazole [Prilosec] 20 mg PO DAILY 04/03/16 Cyanocobalamin (Vitamin B-12) 1,000 mcg PO DAILY 11/23/17 [Vitamin B-12] Duloxetine Hcl [Cymbalta] 60 mg PO DAILY 11/23/17 Quetiapine Fumarate [Seroquel] 200 mg PO BREAKFAST 11/23/17 Simvastatin 40 mg PO QHS 11/23/17 cholecalciferol (vitamin D3) 50,000 unit PO QWEEK 03/01/18 50,000 unit capsule Quetiapine Fumarate [Seroquel] 100 mg PO QHS 08/13/18 metoprolol succinate ER 25 mg 25 mg PO DAILY 30 Days #30 tab 08/16/18 tablet,extended release 24 hr Albuterol IH (ProAir) [Proair Hfa] 2 inh INHALATION 4X/DAY PRN 10/31/18 Surgical History: Surgical History (Last Reviewed 10/31/18 @ 22:52 by Demetrius Cole MD) Aortocoronary bypass status (Chronic) Onset Date: ~02/2010 Z95.1 CABG x1 - SANDERS to LAD & closure of PFO 02/14 H/O aortic valve replacement Z95.2 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 Z96.643 History of left-sided carotid endarterectomy Z98.890 Surgical History: coronary bypass surgery - ?1, total hip arthroplasty - Bilateral Lives: With Family Smoking Status: Former smoker Alcohol: None Drugs: None - *Family History Maternal Family History: Family History (Last Reviewed 10/31/18 @ 22:54 by Demetrius Cole MD) Father Heart disease Brother CAD (coronary artery disease) Myocardial infarction, Onset Age: 57 Hx of CABG Sister CVA (cerebral vascular accident) Sister CAD (coronary artery disease) History Items: - - Unable to obtain as patient is demented Review of Systems Constitutional: Reports: - - complete ROS negative except as documented in HPI Patient Problems: Active and Suspected Problems (Last Reviewed 10/31/18 @ 22:52 by Demetrius Cole MD) Stroke-like symptoms (Acute) Dizziness (Acute) - Physical Exam General: Alert HEENT: Normocephalic Neck: Supple Lungs: Normal air movement Cardiovascular: Normal S1, Normal S2 Abdomen: Bowel Sounds Present Extremities: No cyanosis Neurological: Cranial nerves II-XII grossly intact, Deep Tendon Reflexes 2+/4 and Symmetrical, Neuro grossly intact, Motor Exam 5/5 strength throughout, Muscle tone normal, Sensory exam intact to light touch and pain, Coordination normal Psych/Mental Status: Normal Affect Vital Signs Temp Pulse Resp BP Pulse Ox 97.7 F L 71 16 145/119 H 95 11/01/18 11:58 11/01/18 11:58 11/01/18 11:58 11/01/18 11:58 11/01/18 11:58 Oxygen Flow Rate (L/min) 2 Oxygen Delivery Method Room Air Weight: 83 kg Body Mass Index (BMI) 30.4 Intake and Output for Last 24 Hours 10/30/18 10/31/18 11/01/18 23:59 23:59 23:59 Intake Total 0 / 0 580 / 580 Output Total 100 / 100 300 / 300 Balance -100 / -100 280 / 280 Laboratory Tests Past 24 Hrs 10/31/18 10/31/18 11/01/18 18:47 18:47 05:45 WBC 11.3 H RBC 4.18 L Hgb 11.3 L Hct 35.1 L MCV 84.0 MCH 27.0 MCHC 32.2 RDW 15.5 H RDW Differential 47.5 H Plt Count 262 MPV 8.8 Immature Gran % (Auto) 0.700 Neut % (Auto) 71.7 H Lymph % (Auto) 18.7 L [place] % (Auto) 6.1 Eos % (Auto) 2.6 Baso % (Auto) 0.2 Absolute Neuts (auto) 8.1 H Absolute Lymphs (auto) 2.11 Total Counted Not Reportable Sodium 140 141 Potassium 4.3 4.1 Chloride 104 107 Carbon Dioxide 24.0 26.0 Anion Gap 12 8 BUN 33 H 30 H Creatinine 1.99 H 1.76 H Estim Creat Clear Calc 24.47 27.66 Est GFR (MDRD) Af Amer 41 L 48 L Est GFR (MDRD) Non-Af 34 L 39 L BUN/Creatinine Ratio 16.6 17.0 Glucose 155 H 106 Calcium 8.5 8.1 L Triglycerides 141 Cholesterol 120 LDL Cholesterol 47 VLDL Cholesterol 28 HDL Cholesterol 45 Assessment/Plan All Active Problems (Last Reviewed 10/31/18 @ 22:52 by Demetrius Cole MD) Stroke-like symptoms (Acute) Dizziness (Acute) Patent foramen ovale (Acute ~02/2010) Premature ventricular contraction (Acute) Severe sepsis (Acute) DEWAYNE (acute kidney injury) (Acute) The patient is a 83 year old M with PMH HTN, HLD, H/O TIA, Dementia, CAD s/p CABG, s/p PFO closure S/P prosthetic valve, CKD admitted with dizziness. History is obtained from his daughter and patient. Per daughter he had acute onset dizziness yesterday (10/31/18), the room was spinning, dizziness occurred when he was laying down, had nausea, but denies any focal motor weakness, sensory loss, visual disturbances or sensory loss. Per daughter patient ambulates with a rollator, denies any gait instability, denies any falls, does need assistance for his ADLs, and does not drive. Per patient his dizziness has improved since admission. MRI brain did not show any acute stroke, but reported to show possible NPH, MRA head/neck did not show any hemodynamically significant stenosis or occlusion. Impression Dizziness-likely peripheral etiology ? NPH Plan -On ASA and statin -MRI brain and MRA head/neck reviewed -ENT consult and vestibular therapy -Neurosurgery consult for possible NPH -Fall precautions -PT/OT -Further medical management per hospitalist team. -Follow with neurology as outpatient in 6 weeks -Please call with questions if any -Thank you for allowing us to participate in patient's care and management. Code Visit Inpatient E&M: 16919 Init Hosp L3
--- NOTE | 2018-11-01 14:11 | CASEMGMT ---
HAL ADAMS assessment: Face to Face with patient for initial transition planning/care coordination assessment. HAL ADAMS introduced self and role at [facility], pt voices no further questions or concerns at this time. Pt is sitting up in chair in no distress at this time. Pt's daughter is at bedside and answers majority of questions for pt at this time. The questions that pt does answer are appropriate responses at this time. Care providers, pharmacy, and demographics verified. PCP: Dewayne Specialists: Siddhartha, cardio; per daughter, Dr. Medina would like pt to f/u with neurosurgeon for NPH finding on MRI. Preferred Pharmacy: [facility] Insurance: [facility]/[employer]/[place] Prescription Benefit: [facility] Living Will/HPOA: Daughter states pt has LW/HPOA and she is HPOA but they are not currently on file at [facility] at this time. LNOK: Kenzie Conwayvinicius, daughter Living Arrangements: Pt lives in 1 story condo with daughter and daughter states no concerns at home at this time. Daughter states that her and pt's AUDIO RECORDING ENGINEER assist pt with ADL's but that pt is able to complete some on his own at times. Daughter states that pt has an aide set up through [facility] by the [place] that comes out M-F [phone] daily and she states the aide does most of the bathing, laundry, etc. Transportation: Daughter states that she drives and states no transportation concerns at this time. DME/HHC: Pt has the following DME: bed rail, rollater, shower/tub bench, and grab bars. Pt has had [facility] in the past for PT/OT and has been to [facility] in the past for rehab. Pt/daughter aware of therapy recommendation for 30/03 supervision and daughter states 'We don't believe that that is necessary at this time.' Daughter states that she is a nurse at [employer] and works [id number] audio visual tech. Pt/daughter decline HHC PT/OT at this time as well as SNF. Daughter states that they plan to f/u with neurosurgeon and go from there. Pt/daughter state no concerns with going home at this time with resumption of AUDIO RECORDING ENGINEER services through [employer]. Pt is retired. Pt states does not smoke or drink ETOH. Pt/daughter state no further concerns/needs at this time. CM to follow for any further discharge planning/needs. Advised pt/daughter to ask for CM if any further questions/concerns/needs arise, voices understanding. Plan: Home w/ resumption Ingrid GRIFFIN. Jama HONG CM
--- NOTE | 2018-11-01 14:33 | DS.PCM_ITS ---
Discharge Date and Diagnosis - Problem List Patient Problems: Active and Suspected Problems (Last Reviewed 10/31/18 @ 22:52 by Demetrius Cole MD) Stroke-like symptoms (Acute) Dizziness (Acute) Date of Admission: 10/31/18 Date of Discharge: 11/01/18 - Primary Discharge Diagnosis Active and Suspected Problems (Last Reviewed 10/31/18 @ 22:52 by Demetrius Cole MD) BPPV DEWAYNE secondary to prerenal/dehydration on CKD stage 3 - Secondary Discharge Diagnosis Chronic Problems (Last Reviewed 10/31/18 @ 22:52 by Demetrius Cole MD) Acute kidney injury superimposed on CKD (Chronic) Hyperlipidemia (Chronic) Atherosclerotic heart disease of [place] coronary artery without angina pectoris (Chronic) CABG x1 - SANDERS to LAD & closure of PFO 02/14 Aortocoronary bypass status (Chronic ~02/2010) CABG x1 - SANDERS to LAD & closure of PFO 02/14 Congenital defect of septal closure (Chronic) Carotid bruit (Chronic) 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) CKD (chronic kidney disease), stage III (Chronic) Hypertension (Chronic) GERD (gastroesophageal reflux disease) (Chronic) Hospital Course and Treatment Imaging Results: 11/01/18 08:07 Brain without Contrast [MRI] Routine MRA Head ONLY without Contrast [MRI] Routine MRA Neck without Contrast [MRI] Routine Summary of Care Provided: The patient is a 83 year old M with multiple comorbidities including hypertension, dyslipidemia, history of TIA, dementia, coronary artery status post CABG status post PFO closure, prosthetic valve, CKD was admitted with dizziness. Patient had acute onset of dizziness on 10/31 described as spinning consistent with vertigo. Denies tinnitus, visual disturbance including hemianopia/quadrantanopia or blurry vision. No focal neurological sign. MRI brain and MRA of head and neck was done. MRI brain shows prominent ventricles relative to sulcal high suggesting normal pressure hydrocephalus. No evidence of acute infarct or hemorrhage. Normal MRA head and neck reported. Patient was seen by neurologist. Suggested neurosurgical consult as an outpatient in 2-4 weeks and was conveyed to the patient's daughter who is a nurse. Patient daughter is power of criminal defense attorney. He has follow-up with PCP in first week of November, and she assured that he will follow-up with neurosurgeon. Patient is on simvastatin. Continue baby aspirin. Patient also has acute kidney injury on CKD stage III and admitting creatinine was 1.99 with baseline creatinine around 1.5. Patient was treated with IV fluid normal saline. Creatinine is trending down, 1.76. Avoid nephrotoxic medications/NSAIDs. Rest of comorbidities are stable. Patient was prescribed albuterol for wheezing by PCP. Discharge medication reconciliation done. Discharge follow-up instructions completed and discussed with the patient's daughter near the bedside. Clinical Impression(s) from Imaging Studies Brain CT 10/31/18 18:29 IMPRESSION: Stable chronic ischemic and atrophic changes. No acute bleed or infarct. Prominence of the ventricular system greater than expected for the degree of atrophy. This may be due to central atrophy or may be due to normal pressure hydrocephalus. Correlation with neurological exam is recommended. Electronically Signed: Bryan Woods, at 19:40 EST Tel , Service support , Chest X-Ray 10/31/18 18:30 IMPRESSION: No acute thoracic pathology. Electronically Signed: Bryan Woods, at 18:58 EST Tel , Service support , Brain MRI 11/01/18 08:07 IMPRESSION: Prominent ventricles relative to sulci suggesting normal pressure hydrocephalus. No evidence of acute infarct or hemorrhage. Electronically Signed: Marcus Bhatti MD at 10:38 EST Tel , Service support , Head MRA 11/01/18 08:07 IMPRESSION: Normal MRA of the head Electronically Signed: Marcus Bhatti MD at 10:50 EST Tel , Service support , Neck MRA 11/01/18 08:07 IMPRESSION: Normal bilateral cervical carotid and vertebral arteries. Patient Problems: Active and Suspected Problems (Last Reviewed 10/31/18 @ 22:52 by Demetrius Cole MD) Stroke-like symptoms (Acute) Dizziness (Acute) Subjective: Patient vertigo is resolved. Patient neuroimaging is negative of acute infarct or hemodynamically significant stenosis or aneurysm of head and neck but has prominent ventricles suggesting NPH. Patient has history of chronic vertigo. Patient has seen ENT about 6 months ago and wax was cleaned out - Physical Exam General: Alert, Oriented x3, Cooperative HEENT: Atraumatic, PERRLA, EOMI, Normocephalic Neck: Supple, No JVD, Negative Carotid Bruits Lungs: Clear to auscultation, No rhonchi, No wheeze, No rales, Diminished - Air entry is diminished. Cardiovascular: Regular rate, Regular Rhythm, Normal S1, Normal S2, No murmurs Abdomen: Bowel Sounds Present, Soft, Non Tender, Non-Distended Extremities: No edema, Capillary Refill Less than 3 Seconds Skin: No rashes, No breakdown Musculoskeletal: No Tenderness to Palpation of Joints or Extremities, Arthritic Changes, Muscle Wasting Neurological: Cranial nerves II-XII grossly intact, Deep Tendon Reflexes 2+/4 and Symmetrical, Neuro grossly intact Psych/Mental Status: Normal Affect, Appropriate Vital Signs Temp Pulse Resp BP Pulse Ox 97.7 F L 71 16 145/119 H 95 11/01/18 11:58 11/01/18 11:58 11/01/18 11:58 11/01/18 11:58 11/01/18 11:58 Oxygen Flow Rate (L/min) 2 Oxygen Delivery Method Room Air Weight: 182 lb 15.739 oz Body Mass Index (BMI) 30.4 Intake and Output for Last 24 Hours 10/30/18 10/31/18 11/01/18 23:59 23:59 23:59 Intake Total 0 / 0 580 / 580 Output Total 100 / 100 300 / 300 Balance -100 / -100 280 / 280 Laboratory Tests Past 24 Hrs 10/31/18 10/31/18 11/01/18 18:47 18:47 05:45 WBC 11.3 H RBC 4.18 L Hgb 11.3 L Hct 35.1 L MCV 84.0 MCH 27.0 MCHC 32.2 RDW 15.5 H RDW Differential 47.5 H Plt Count 262 MPV 8.8 Immature Gran % (Auto) 0.700 Neut % (Auto) 71.7 H Lymph % (Auto) 18.7 L [place] % (Auto) 6.1 Eos % (Auto) 2.6 Baso % (Auto) 0.2 Absolute Neuts (auto) 8.1 H Absolute Lymphs (auto) 2.11 Total Counted Not Reportable Sodium 140 141 Potassium 4.3 4.1 Chloride 104 107 Carbon Dioxide 24.0 26.0 Anion Gap 12 8 BUN 33 H 30 H Creatinine 1.99 H 1.76 H Estim Creat Clear Calc 24.47 27.66 Est GFR (MDRD) Af Amer 41 L 48 L Est GFR (MDRD) Non-Af 34 L 39 L BUN/Creatinine Ratio 16.6 17.0 Glucose 155 H 106 Calcium 8.5 8.1 L Triglycerides 141 Cholesterol 120 LDL Cholesterol 47 VLDL Cholesterol 28 HDL Cholesterol 45 Discharge Activity: May Not Drive Call your doctor if you observe: Fever of 101 or Higher, Inability to urinate, Inability to have a bowel movement, Fainting spells, Swelling in the ankles, Prolonged hiccoughing, Increased palpitations (irregular heartbeat) Home Medications: Medications to take at Discharge Aspirin [Aspirin, Baby] 81 mg PO DAILY@0800 04/03/16 Donepezil HCl [Aricept] 10 mg PO QHS 04/03/16 Hydrocodone/Acetaminophen [Hydrocodone-Acetamin 5-325 mg] 1 ea PO BID 04/03/16 Omeprazole [Prilosec] 20 mg PO DAILY 04/03/16 Cyanocobalamin (Vitamin B-12) [Vitamin B-12] 1,000 mcg PO DAILY 11/23/17 Duloxetine Hcl [Cymbalta] 60 mg PO DAILY 11/23/17 Quetiapine Fumarate [Seroquel] 200 mg PO BREAKFAST 11/23/17 Simvastatin 40 mg PO QHS 11/23/17 cholecalciferol (vitamin D3) 50,000 unit capsule 50,000 unit PO QWEEK 03/01/18 Quetiapine Fumarate [Seroquel] 100 mg PO QHS 08/13/18 metoprolol succinate ER 25 mg tablet,extended release 24 hr 25 mg PO DAILY 30 Days #30 tab 08/16/18 Albuterol IH (ProAir) [Proair Hfa] 2 inh INHALATION 4X/DAY PRN 10/31/18 Meclizine HCl [Antivert] 12.5 mg PO TID PRN PRN #30 tablet 11/01/18 Following Prescrptions Were Given to Patient: Meclizine HCl [Antivert] 12.5 mg PO TID PRN PRN #30 tablet PRN Reason: Vertigo Primary Care Physician: Randy Buchanan MD [Primary Care Provider] - Please follow up with your Primary Care Physician in: in 1 week Medical Necessity - Tobacco Use Smoking Status: Former smoker Meaningful Use Info Meaningful Use Diagnoses (Choose all that apply): None applicable Code Visit OBSV E&M: 17129 Observation care discharge
--- NOTE | 2018-11-01 14:33 | DCINST_ITS ---
- Discharge Diagnoses Current Active Problems: Current Active and Chronic Problems (Last Reviewed 10/31/18 @ 22:52 by Demetrius Cole MD) Stroke-like symptoms (Acute) Acute kidney injury superimposed on CKD (Chronic) Dizziness (Acute) You will use the following diet at home:: Cardiac Your food should be the consistency of: Regular Discharge Activity: May Not Drive Call your doctor if you observe: Fever of 101 or Higher, Inability to urinate, Inability to have a bowel movement, Fainting spells, Swelling in the ankles, Prolonged hiccoughing, Increased palpitations (irregular heartbeat) Additional Instructions: Outpatient Neurosurgeon consulation recomended in 2-4 week for 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 Discussed with daughter Allergies/Adverse Reactions: Allergies No Known Allergies Allergy (Verified 08/16/18 11:01) Medications to take at Discharge Aspirin [Aspirin, Baby] 81 mg PO DAILY@0800 04/03/16 Donepezil HCl [Aricept] 10 mg PO QHS 04/03/16 Hydrocodone/Acetaminophen [Hydrocodone-Acetamin 5-325 mg] 1 ea PO BID 04/03/16 Omeprazole [Prilosec] 20 mg PO DAILY 04/03/16 Cyanocobalamin (Vitamin B-12) [Vitamin B-12] 1,000 mcg PO DAILY 11/23/17 Duloxetine Hcl [Cymbalta] 60 mg PO DAILY 11/23/17 Quetiapine Fumarate [Seroquel] 200 mg PO BREAKFAST 11/23/17 Simvastatin 40 mg PO QHS 11/23/17 cholecalciferol (vitamin D3) 50,000 unit capsule 50,000 unit PO QWEEK 03/01/18 Quetiapine Fumarate [Seroquel] 100 mg PO QHS 08/13/18 metoprolol succinate ER 25 mg tablet,extended release 24 hr 25 mg PO DAILY 30 Days #30 tab 08/16/18 Albuterol IH (ProAir) [Proair Hfa] 2 inh INHALATION 4X/DAY PRN 10/31/18 Meclizine HCl [Antivert] 12.5 mg PO TID PRN PRN #30 tablet 11/01/18 The following prescriptions were given: Meclizine HCl [Antivert] 12.5 mg PO TID PRN PRN #30 tablet PRN Reason: Vertigo Primary Care Physician: Randy Buchanan MD [Primary Care Provider] - Please follow up with your Primary Care Physician in: in 1 week Test Results: Test results from this visit will be discussed in further detail at your follow- up appointment, if applicable.
--- NOTE | 2018-11-01 15:21 | CASEMGMT ---
Patient has a Healthcare POA and Healthcare LW. RN CM notified patient and his daughter they are not on file. Patient's daughter is his POA. Anny ALVARADO MSW
--- NOTE | 2018-11-01 17:00 | CHAPLAIN ---
Type of Pastoral Visit _x__ Initial Visit ___ Follow-up Visit ___ On-call Visit ___ General Patient Visit ___ Spiritual Assessment ___ Family Conference ___ Bereavement ___ Rapid Response ___ Code Blue ___ Other (describe below) Pastoral Care Referral From _x__ Patient ___ Family ___ Nurse ___ Physician ___ Sausage Meat Trimmer ___ Product Development Carpenter ___ Other (describe below) Sacrament/Intervention _x__ Active listening ___ Anointing ___ Religious ___ Bereavement ___ Communion ___ Nereida exploration ___ ___ Life review _x__ Prayer ___ Reconciliation ___ Sacrament of Sick _x__ Supportive presence ___ Wedding ___ Other (describe below) Pastoral Comments called RN for assistance as discovered patient had removed his IV and was bleeding; RN came immediately and took care of patient; talked with patient and offered a prayer
== END 2018-11-01 14:32 | disposition home or self-care (01) ==
LOC: ED 22:36 → PCU 22:39
PROVIDERS: Admitting Provider Hospitalist; Emergency Provider Emergency Medicine; Family Provider Family Medicine; PCP Family Medicine; Visit Provider Internal Medicine
DX: H81.10 Benign paroxysmal vertigo, unspecified ear (principal); I12.9 Hypertensive chronic kidney disease with stage 1 through stage 4 chronic kidney disease, or unspecified chronic kidney disease; I25.10 Atherosclerotic heart disease of native coronary artery without angina pectoris; N18.3 Chronic kidney disease, stage 3 (moderate); K21.9 Gastro-esophageal reflux disease without esophagitis; E78.5 Hyperlipidemia, unspecified; G30.9 Alzheimer's disease, unspecified; F02.80 Dementia in other diseases classified elsewhere, unspecified severity, without behavioral disturbance, psychotic disturbance, mood disturbance, and anxiety; N17.9 Acute kidney failure, unspecified; F41.9 Anxiety disorder, unspecified; F32.9 Major depressive disorder, single episode, unspecified; G89.29 Other chronic pain; Z95.1 Presence of aortocoronary bypass graft; Z95.2 Presence of prosthetic heart valve; Z79.899 Other long term (current) drug therapy; Z79.82 Long term (current) use of aspirin; Z87.891 Personal history of nicotine dependence
CPT/HCPCS: 36415; 70450; 70544; 70547; 70551; 71045; 80048; 80061; 85025; 92610; 93005; 93306; 96361; 96374; 96375; 96376; 97162; 97166; 99218; 99285; J7030; Q9957; A4216; C8929; G0378; J2405

== ENCOUNTER → 2018-11-22 09:48 | Outpatient (CLI) | payer MEDICARE, OTHER, SELFPAY ==
[2018-11-01 16:54] VITALS: BMI 30.4
--- NOTE | 2018-11-22 09:57 | RAD_ITS ---
CLINICAL HISTORY: Male, 83 years old. Diziness. PROCEDURE: LUMBAR PUNCTURE UNDER FLUOROSCOPIC GUIDANCE FLUOROSCOPY TIME (if supplied): (0:23) minutes/seconds, 2 images were obtained. CONSENT: The risks, benefits and alternatives to the procedure were explained to the patient, and the patient agreed to the procedure and signed the consent. SEDATION: STERILE BARRIER TECHNIQUE: The following sterile barrier precautions were used during the procedure: hand hygiene; use of 2% chlorhexidine aseptic; use of a cap, mask, sterile gown, sterile gloves, sterile full body drape, and a large sterile sheet. PROCEDURE/TECHNIQUE: The risks, benefits, and alternatives to the procedure were explained to patient, and the patient agreed to the procedure and signed a consent form for the procedure. A timeout was performed to confirm the patient's identity, the type of procedure, to be performed and the site of entry. TECHNIQUE: Under fluoroscopic guidance using sterile technique and after infiltration of the skin and subcutis soft tissues with 10 mL lidocaine 1% a 22-gauge needle is introduced in the lumbar thecal sac. The CSF opening pressures 17cm H2O. RAD/Fluoro Guided Lumbar Puncture IMPRESSION: Successful lumbar puncture. CSF opening pressures 17 CM H2O. Electronically Signed: Meera Beyer, at 16:10 EDT Tel , Service support ,
== END ==
PROVIDERS: Family Provider Family Medicine; PCP Family Medicine; Referring Provider Family Medicine; Visit Provider Family Medicine
DX: G91.2 (Idiopathic) normal pressure hydrocephalus (principal)
CPT/HCPCS: 62270; 77003

== ENCOUNTER → 2019-04-28 | Outpatient (CLI) | payer MEDICARE, OTHER, SELFPAY ==
[2018-11-01 16:54] VITALS: BMI 30.4
[2019-04-28 13:50] LABS: Absolute Lymphocyte Count 1.52 X10^3/uL (0.83-4.51); Absolute Neutrophil Count 8.9 X10^3/uL (2.0-7.7); Basophil# 0.04 X10^3/uL; Basophil% 0.3 % (0-1); Eosinophil# 0.22 X10^3/uL; Eosinophils% 1.9 % (0-5); Hematocrit 40.8 % (40-54); Hemoglobin 12.7 g/dL (13.0-16.5); Lymphocyte # 1.52 X10^3/ul (4.0); Lymphocyte % 13.3 % (19-41); Mean Corp Hgb Conc 31.1 g/dL (32-36); Mean Corpuscular Hgb 25.7 pg (27.0-32.0); Mean Corpuscular Volume 82.6 fL (80-94); Mean Platelet Vol. 9.5 fl (6.2-12.0); Monocyte# 0.67 X10^3/uL; Monocyte% 5.9 % (0-10); NRBC Flagged by Analyzer 0 % (0-5); Neutrophil # 8.92 X10^3/uL (2.7-7.7); Neutrophil % 78.1 % (47-70); Platelet Count 280 K/mm3 (150-450); RBC Distribution Width CV 15.9 % (11.6-14.6); RBC Distribution Width SD 47.3 fl (35.1-43.9); Red Blood Count 4.94 M/mm3 (4.6-6.2); White Blood Count 11.4 K/mm3 (4.4-11.0)
[2019-04-28 14:11] LABS: ALB/GLOB Ratio 0.9 RATIO (0.9-2.4); AST(SGOT) 13 U/L (15-37); Alanine Aminotransfer ALT/SGPT 17 U/L (16-61); Albumin, Serum 3.5 g/dL (3.2-5.0); Alkaline Phosphatase 63 U/L (45-117); Anion Gap 11 (5-15); BUN 20 mg/dL (7-18); Calcium,Total 8.9 mg/dL (8.5-10.1); Chloride 107 mmol/L (98-107); Cholesterol 148 mg/dL (200); Creatinine, Serum 1.54 mg/dL (0.70-1.30); EST Glomerular Filtration Rate 46 mL/min (>60); Est Glom Filt Rate - Afr Amer 56 mL/min (>60); Globulin 3.7 g/dL (2.2-4.2); Glucose 118 mg/dL (74-106); High Density Lipoprotein 49 mg/dL; Potassium 4.2 mmol/L (3.5-5.1); Protein, Total 7.2 g/dL (6.4-8.2); Sodium Level 140 mmol/L (136-145); Thyroid Stim Hormone (TSH) 2.68 uIU/mL (0.358-3.74); Triglycerides 154 mg/dL; Very Low Density Lipoprotein 31 mg/dL (5-40)
[2019-04-28 14:17] LABS: Vitamin B12 > 2000 pg/mL (211-911); Vitamin D,25 Hydroxy 62.4 ng/mL (29.95-100.01)
== END | disposition home or self-care (01) ==
LOC: MFPLAB 12:06
PROVIDERS: Family Provider Family Medicine; PCP Family Medicine; Referring Provider Family Medicine; Visit Provider Family Medicine
DX: I25.10 Atherosclerotic heart disease of native coronary artery without angina pectoris (principal); E55.9 Vitamin D deficiency, unspecified; E53.8 Deficiency of other specified B group vitamins; F32.9 Major depressive disorder, single episode, unspecified
CPT/HCPCS: 36415; 80053; 80061; 82306; 82607; 84443; 85025

== ENCOUNTER 2019-10-28 20:19 | Emergency (ER) | payer MEDICARE, MEDICAID, SELFPAY ==
[2019-09-19 10:03] VITALS: BMI 30.4
[2019-10-28 20:21] VITALS: BP 127/72; PULSE 70; RESP 16; TEMP 36.6; O2SAT 97; BMI 29.2
--- NOTE | 2019-10-28 20:55 | RAD_ITS ---
HISTORY: Fall. Laceration to fifth digit. 3 images of the right fifth digit. Findings: Bony alignment is normal. Joint spaces are minimally narrowed. No foreign bodies are perceived. No fractures are demonstrated. RAD/Finger(s) Min 2 Views IMPRESSION: No evidence of acute sequelae of trauma to the left fifth digit at 2140 Reported and signed by: Randell James MD Electronically Signed: Randell James MD at 21:39 EST Tel , Service support ,
--- NOTE | 2019-10-28 21:14 | CT_ITS ---
HISTORY: UN-WITNESSED FALL AT [facility] Technique:CT Head or Brain W/O Contrast Injection Number of Images including paperwork:240 Comparison: Most recent MRI of the brain is November 01, 2018. Most recent CT scan of the brain is October 31, 2019.. Findings: CT images of the head were obtained without contrast. Periventricular deep and subcortical white matter disease is present. Paranasal sinuses are clear. The brain is atrophic. Calcific ASCVD involves intracranial arteries. No acute intracranial edema or hemorrhage. No acute abnormality of orbits. Middle ear cavities and mastoid air cells are well aerated. Skull is normal. CT/Brain/Head without Contrast IMPRESSION: No acute intracranial abnormality. Chronic changes as above. ASPECT 10. Individualized dose optimization techniques were used for this CT. at 2218 Reported and signed by: Randell James MD Electronically Signed: Randell James MD at 22:17 EST Tel , Service support ,
--- NOTE | 2019-10-28 22:29 | ED.VISSUMM ---
- ER Visit Summary Date of Service: 10/28/19 Chief Complaint: Fall at extended care facility with reported head injury and right small finger laceration History of Present Illness: The patient is a 84 M history of dementia accompanied by family. Patient reportedly fell at the extended care facility. Reportedly hit his head. I did speak to staff there who gave me the history. He also has a laceration to his right small finger. He himself denies any other injuries. He is a somewhat limited informant due to his dementia. Family is present but was not there when he fell. Physical Examination: Older male no acute distress. Vital signs stable afebrile. H EENT exam unremarkable atraumatic. I will see any signs of trauma to his face or scalp. I do not see any hematoma. C-spine nontender. Trachea midline. Lungs clear to auscultation. Heart regular rhythm rate about 70. Chest wall nontender. Ribs nontender. Abdomen soft nontender. Pelvic girdle intact. He has flexion-extension of both hips. No shortening or rotation. Knees and ankles are nontender. Dorsi plantarflexion intact. Left upper extremity unremarkable nontender normal performance test consultant strength. Right shoulder, elbow and wrist are nontender without deformity. His right hand small finger palmar side there is a large V-shaped flap laceration approximately 6 to 7 cm in length. Involves primarily the mid phalanx. No gross bony deformity. He is able to flex and extend the digit. There are chronic arthritic changes. No infection. No foreign body. No signs of any flexor tendon injury. He has tight sensation. Neurologically is awake. He does answer questions. He is moving his extremities. There are no focal motor deficits. Test Results: CAT scan of his brain without contrast shows no acute abnormality. Chronic changes. Read by the radiologist and reviewed by me. Right small finger x-ray shows chronic changes but no acute fracture or dislocation. No foreign body. 2 views read by myself and the radiologist. Emergency Department Course and Treatment: Older male fall reportedly with closed head injury. And right small finger flap laceration under need repaired. Procedure note: Right small finger flap laceration approximately 6 cm. Digital block performed with lidocaine. Proper anesthetic was obtained. Cleaned the wound with Shur-Clens washed with saline and irrigated with saline. Explored. Closed using 7 simple interrupted 5-0 Ethilon sutures. Proper hemostasis wound closure obtained. There is the potential risk for the flap to not have enough blood supply causing wound complication. But good closure was obtained. Good hemostasis was obtained. Nurse applied antibiotic ointment and tube gauze. Treatment Plan: Wound care. Clean daily. Stitches out in 7 to 10 days. Return if any signs of infection. Head injury instructions Disposition: Discharge Impression: Fall Closed head injury Right small finger flap laceration of 6 cm with ER repair This note was generated with [employer] dictation software. It may contain incorrect words, spelling, and punctuation that were not noted in review of the chart prior to signing ED Disposition - Plan for ED Patient: Referrals: Bryan Velasco MD [Primary Care Provider] -
--- NOTE | 2019-10-28 22:34 | ED.DEP ---
ED Disposition - Plan for ED Patient: Disposition: Home or Assisted Living Instructions: HEAD INJURY, No Wake-Up (Adult), LACERATION, Hand Referrals: Bryan Velasco MD [Primary Care Provider] - 10 Day for suture removal Additional Instructions: Keep right small finger laceration clean and dry. Apply antibiotic ointment daily. Keep covered. Stitches need to come out in 10 days. Watch for any signs of infection. Tylenol for pain.
[2019-10-28 22:43] VITALS: BP 124/62; PULSE 75; RESP 18; O2SAT 96
== END 2019-10-28 23:35 ==
PROVIDERS: Emergency Provider Emergency Medicine; PCP Family Medicine
DX: S61.216A Laceration without foreign body of right little finger without damage to nail, initial encounter (principal); S09.90XA Unspecified injury of head, initial encounter; F03.90 Unspecified dementia, unspecified severity, without behavioral disturbance, psychotic disturbance, mood disturbance, and anxiety; W18.30XA Fall on same level, unspecified, initial encounter; Y93.89 Activity, other specified; Y92.129 Unspecified place in nursing home as the place of occurrence of the external cause; Y99.8 Other external cause status
CPT/HCPCS: 12002; 70450; 73140; 99285